=== PATIENT | female | born 1930 | race Caucasian/White ===

== ENCOUNTER 2016-02-16 07:28 | Inpatient (IN) | payer OTHER ==
[2016-02-16] MEDS ORDERED: ADENOSINE 6 MG/2 ML VIAL IVPUSH ONE (07:42)
[2016-02-16] MEDS ORDERED: dilTIAZem HCL 50 MG/10 ML - 10 ML VIAL ONE (07:46)
[2016-02-16] MEDS ORDERED: SODIUM CHLORIDE 500 ML IV STA (08:00)
[2016-02-16] MEDS ORDERED: dilTIAZem HCL 50 MG/10 ML - 10 ML VIAL IVPUSH ONE ×4 (08:00→10:10)
[2016-02-16] MEDS ORDERED: dilTIAZem HCL 30 MG TABLET (FP) PO ONE (08:01)
--- NOTE | 2016-02-16 08:13 | PDOC ---
History of Present Illness - General History Source: Patient, Family Exam Limitations: No Limitations - History of Present Illness Initial Comments: 02/16/16 08:15 The patient is an 85 year old female with significant past medical history of lung cancer 13 years ago, hypertension, hypercholesterolemia, a-fib (on Cardizem 240mg), TIA (on Coumadin) who presents to the emergency department with rapid heart rate and shortness of breath that started this morning. As per daughter, the patient was woken from sleep with sudden onset of shortness of breath. The patient denies any palpitations or chest pain. The patient states she vomited x2 yesterday. She denies any recent history of dehydration. She denies diarrhea. She denies any lightheadedness, dizziness, or syncope. The patient denies any leg swelling. She denies missing any doses of medication. She denies recent illness, fevers, or chills. Braid Maker: Dr. Christianson PMD: Dr. Lane <Anastasiia Driver - Last Filed: 02/16/16 08:15> <Ramses Zacarias - Last Filed: 02/16/16 09:57> - General Chief Complaint: Shortness of Breath Stated Complaint: SOB, VOMITING Time Seen by Provider: 02/16/16 07:40 Past History <Anastasiia Driver - Last Filed: 02/16/16 08:15> - Past Medical History Anemia: No Asthma: No Cancer: Yes (lung ca 10yrs ago,and chemo) Cardiac Disorders: Yes (A-fib) CVA: No COPD: Yes CHF: No Dementia: No Diabetes: No GI Disorders: Yes (Sigmoid perforation, peritonitis, colostomy) Disorders: No HTN: Yes Hypercholesterolemia: Yes Liver Disease: No Suicide Attempt (Hx): No Seizures: No Thyroid Disease: No - Surgical History Abdominal Surgery: Yes (colostomy) Appendectomy: Yes Cardiac Surgery: No Cholecystectomy: No Lung Surgery: Yes (right thoracotomy) Neurologic Surgery: No Orthopedic Surgery: No - Immunization History Td Vaccination: Yes TDAP Vaccination: No Immunization Up to Date: Yes - Psycho/Social/Smoking Cessation Hx Anxiety: No Suicidal Ideation: No Smoking History: Never smoked Have you smoked in the past 12 months: No Number of Cigarettes Smoked Daily: 0 If you are a former smoker, when did you quit?: 1994 Hx Alcohol Use: Yes (SOCIAL) Drug/Substance Use Hx: No Substance Use Type: None Hx Substance Use Treatment: No <Ramses Zacarias - Last Filed: 02/16/16 09:57> - Past Medical History Allergies/Adverse Reactions: Allergies Allergy/AdvReac Type Severity Reaction Status Date / Time Penicillins Allergy Verified 02/16/16 07:35 Home Medications: Ambulatory Orders Brinzolamide [Azopt] 1 drop OD DAILY 09/08/14 Warfarin Sodium [Coumadin] 2 mg PO DAILY 09/08/14 Zolpidem Tartrate [Ambien Cr] 12.5 mg PO HS 09/08/14 Diltiazem Cd [Cardizem Cd -] 240 mg PO DAILY 02/16/16 Pilocarpine 0.5% [Pilostat 0.5% -] 1 drop OU ASDIR 02/16/16 Simvastatin [Zocor] 40 mg PO HS 02/16/16 Review of Systems - Review of Systems Constitutional: No: Chills, Fever Respiratory: Yes: Shortness of Breath. No: Cough Cardiac (ROS): Yes: Palpitations. No: Chest Pain, Edema ABD/GI: Yes: Vomiting. No: Diarrhea, Nausea Neurological: No: Headache, Weakness All Other Systems: Reviewed and Negative <Ramses Zacarias - Last Filed: 02/16/16 09:57> *Physical Exam - Vital Signs Last Vital Signs Temp Pulse Resp BP Pulse Ox 205 H 20 126/74 94 L 02/16/16 07:29 02/16/16 07:29 02/16/16 07:29 02/16/16 07:29 - Physical Exam Comments: 02/16/16 08:15 GENERAL: The patient is awake, alert, and fully oriented, in no acute distress. HEAD: Normal with no signs of trauma. EYES: Pupils equal, round and reactive to light, extraocular movements intact, sclera anicteric, conjunctiva clear with no pallor. ENT: Ears normal, nares patent, oropharynx clear without exudates. Moist mucous membranes. NECK: Normal range of motion, supple without lymphadenopathy, JVD, or masses. LUNGS: Breath sounds equal, clear to auscultation bilaterally. No wheeze/ crackles. HEART: +Irregularly irregular and tachycardic, normal S1 and S2 without murmur or rub. ABDOMEN: +LLQ colostomy with stool in the bag. Soft/nontender/nondistended. BS wnl. No guarding or rebound. No palpable masses. No hepatosplenomegaly. EXTREMITIES: Normal range of motion, no edema. No clubbing or cyanosis. No cords, erythema, or tenderness. NEUROLOGICAL: Cranial nerves II through XII grossly intact. Normal speech, normal gait. PSYCH: Normal mood, normal affect. SKIN: Warm, Dry, normal turgor, no rashes or lesions noted. <Anastasiia Driver - Last Filed: 02/16/16 08:15> - Vital Signs Last Vital Signs Temp Pulse Resp BP Pulse Ox 205 H 20 126/74 94 L 02/16/16 07:29 02/16/16 07:29 02/16/16 07:29 02/16/16 07:29 <Ramses Zacarias - Last Filed: 02/16/16 09:57> Heart Score/ECG Review #1 ECG reviewed & interpreted by me at: 07:39 02/16/16 08:09 SVT versus atrial fibrillation with rapid ventricular response. Overall rate 198 , ST depressions likely rate related, #2 ECG reviewed & interpreted by me at: 08:11 Compared to previous ECG there are: Changes noted (Compared to prior EKG on 07/03, the T-wave inversions in 1 and aVL are new, the lateral ST depressions are also new) 02/16/16 08:32 Likely sinus rhythm at 104, T wave inversions in 1 and aVL, less than [address] depression in V4 through V6, no ST elevation. <Ramses Zacarias - Last Filed: 02/16/16 09:57> ED Treatment Course - LABORATORY CBC & Chemistry Diagram: 02/16/16 08:10 02/16/16 08:10 - RADIOLOGY Radiology Studies Ordered: Category Date Time Status CHEST X-RAY PORTABLE* [RAD] Stat Radiology 02/16/16 08:01 Ordered <Ramses Zacarias - Last Filed: 02/16/16 09:57> Medical Decision Making - Critical Care Time Total Critical Care Time (minutes): 45 Critical Care Statement: The care of this patient involved high complexity decision making to prevent further life threatening deterioration of the patient 's condition and/or to evalute & treat vital organ system(s) failure or risk of failure. - Medical Decision Making 02/16/16 08:10 A portion of this note was documented by scribe services under my direction. I have reviewed the details of the note, within reason, and agree with the documentation with the following case summary and management plan written by me. 85-year-old female with history of hypertension, high cholesterol, atrial fibrillation on Cardizem and Coumadin presents with shortness of breath this morning, found to be in atrial fibrillation with rapid ventricular response at triage. Called to bedside to evaluate the patient immediately upon arrival. Patient placed on monitor, overall irregular rate on monitor at 190. Patient is otherwise in no acute distress, speaking full sentences and smiling. Exam as noted Patient given 10 mg IV push of Cardizem with immediate improvement in her heart rate to 103, still irregular, remained well-appearing and now asymptomatic. Blood pressure remained stable throughout from 140/90 to 109/80. 85-year-old female with history of atrial fibrillation presents in rapid A. fib , question secondary to 2 episodes of vomiting yesterday and some dehydration, patient states she is very compliant with her medications, as no other infectious complaints. Monitor rate control on monitor Labs, EKG, chest x-ray PO diltiazem Admission telemetry Will discuss with Dr. Christianson, her inverform machine operator 02/16/16 08:32 EKG shows markedly improved rate at 104, we'll give additional 5 mg of diltiazem intravenously, follow-up labs and admit. 02/16/16 09:38 Labs notable for white count of 15.4, elevated creatinine of 2.9 (baseline around 2), troponin 0.17. BNP 17k, significantly higher than her baseline. Discussed with Dr. Lane, requests admission to hospitalist service. Dr. Christianson, the patient's inverform machine operator, consulted. 02/16/16 09:46 Accepted for inpatient telemetry by Dr. Guy. <Ramses Zacarias - Last Filed: 02/16/16 09:57> *DC/Admit/Observation/Transfer - Attestations Scribe Attestion: 02/16/16 08:16 Documentation prepared by Anastasiia Driver, acting as medical review specialist for Ramses Zacarias MD, <Anastasiia Driver - Last Filed: 02/16/16 08:15> - Discharge Dispostion Admit: Yes <Ramses Zacarias - Last Filed: 02/16/16 09:57> Diagnosis at time of Disposition: Atrial fibrillation with rapid ventricular response, Acute on chronic renal insufficiency, Elevated troponin level - Discharge Dispostion Condition at time of disposition: Fair - Referrals Referrals: Criselda Lane MD [Primary Care Provider] -
[2016-02-16] MEDS ORDERED: dilTIAZem HCL 30 MG TABLET (FP) ONE (08:25)
[2016-02-16] MEDS ORDERED: ONDANSETRON 4 MG/2 ML VIAL IVPUSH ONE (08:48)
[2016-02-16] MEDS ORDERED: ONDANSETRON 4 MG/2 ML VIAL ONE (08:53)
[2016-02-16 08:56] LABS: BASOPHIL 0.6 % (0-2.0); EOSINOPHIL 0.3 % (0-4.5); MCH 27.7 pg (25.7-33.7); MCHC 31.7 g/dl (32.0-36.0); MEAN CELL VOLUME 87.3 fl (80-96); MEAN PLT VOLUME 9.9 fl (7.5-11.1); NEUTROPHILS 71.4 % (42.8-82.8); PLATELET COUNT 230 K/MM3 (134-434); RDW 15.7 % (11.6-15.6); WHITE BLOOD COUNT 15.4 K/mm3 (4.0-10.0)
[2016-02-16 09:12] LABS: INR 1.38 (0.82-1.09); PROTHROMBIN TIME (PATIENT) 15.3 SEC (9.98-11.88)
[2016-02-16 09:25] LABS: CALCIUM 9.3 mg/dL (8.5-10.1); CREATININE 2.9 mg/dL (0.55-1.02); MAGNESIUM 2.5 mg/dL (1.8-2.4)
[2016-02-16 09:29] LABS: BILIRUBIN,TOTAL 0.8 mg/dL (0.2-1.0); TROPONIN I 0.17 ng/ml (0.00-0.05)
[2016-02-16] MEDS ORDERED: ASPIRIN 81 MG CHEWABLE TABLETS PO ONE (09:58)
--- NOTE | 2016-02-16 09:59 | CONSULT ---
Consult Consult Specialty:: Cardiology - History of Present Illness History of Present Illness: The patient is an 85 year old female with significant past medical history of lung cancer 13 years ago, hypertension, hypercholesterolemia, a-fib (on Cardizem 240mg), TIA (on Coumadin) who presents to the emergency department with rapid heart rate and shortness of breath that started this morning. As per daughter, the patient was woken from sleep with sudden onset of shortness of breath. The patient denies any palpitations or chest pain. The patient states she vomited x2 yesterday. She denies any recent history of dehydration. She denies diarrhea. She denies any lightheadedness, dizziness, or syncope. The patient denies any leg swelling. She denies missing any doses of medication. She denies recent illness, fevers, or chills. Restaurant Supervisor: Dr. Christianson PMD: Dr. 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 No: Cancer, Hematuria, Renal Calculi, UTI Musculoskeletal: Yes: Osteoarthritis - Past Surgical History Past Surgical History: Yes: Thoracotomy (right) - Alcohol/Substance Use Hx Alcohol Use: Yes (SOCIAL) History of Substance Use: reports: None - Smoking History Smoking history: Never smoked Have you smoked in the past 12 months: No Aproximately how many cigarettes per day: 0 If you are a former smoker, when did you quit?: 1994 - Social History History of Recent Travel: No Home Medications - Allergies Allergies/Adverse Reactions: Allergies Allergy/AdvReac Type Severity Reaction Status Date / Time Penicillins Allergy Verified 02/16/16 07:35 - Home Medications Home Medications: Ambulatory Orders Brinzolamide [Azopt] 1 drop OD DAILY 09/08/14 Warfarin Sodium [Coumadin] 2 mg PO DAILY 09/08/14 Zolpidem Tartrate [Ambien Cr] 12.5 mg PO HS 09/08/14 Diltiazem Cd [Cardizem Cd -] 240 mg PO DAILY 02/16/16 [place] 0.5% [Pilostat 0.5% -] 1 drop OU ASDIR 02/16/16 Simvastatin [Zocor] 40 mg PO HS 02/16/16 Review of Systems - Review of Systems Constitutional: reports: No Symptoms Eyes: reports: No Symptoms HENT: reports: No Symptoms Neck: reports: No Symptoms Cardiovascular: reports: Palpitations Respiratory: reports: SOB Gastrointestinal: reports: No Symptoms Genitourinary: reports: No Symptoms Breasts: reports: No Symptoms Reported Musculoskeletal: reports: No Symptoms Integumentary: reports: No Symptoms Neurological: reports: No Symptoms Endocrine: reports: No Symptoms Hematology/Lymphatic: reports: No Symptoms Psychiatric: reports: No Symptoms Vital Signs: Vital Signs Temperature Pulse Rate 103 H 02/16/16 08:30 Respiratory Rate 22 02/16/16 08:30 Blood Pressure 117/88 02/16/16 08:30 O2 Sat by Pulse Oximetry (%) 99 02/16/16 08:30 Constitutional: Yes: Well Nourished, No Distress, Calm Eyes: Yes: WNL, Conjunctiva Clear, EOM Intact HENT: Yes: WNL, Atraumatic, Normocephalic Neck: Yes: WNL, Supple, Trachea Midline Respiratory: Yes: WNL, Regular, CTA Bilaterally Gastrointestinal: Yes: WNL, Normal Bowel Sounds Renal/: Yes: WNL Cardiovascular: Yes: Pulse Irregular Musculoskeletal: Yes: WNL Extremities: Yes: WNL Integumentary: Yes: WNL Neurological: Yes: WNL, Alert, Oriented ...Motor Strength: WNL Psychiatric: Yes: WNL, Alert, Oriented - Other Data Labs, Other Data: CBC, BMP 02/16/16 08:10 02/16/16 08:10 INR, PTT INR 1.38 (0.82-1.09) H D 02/16/16 08:10 Troponin, BNP 02/16/16 02/16/16 08:10 08:10 Troponin I 0.17 H B-Natriuretic Peptide 86832.35 H Troponin, BNP 02/16/16 02/16/16 08:10 08:10 Troponin I 0.17 H B-Natriuretic Peptide 41923.35 H Imaging - Results Chest X-ray: Image Reviewed (no i/e) EKG: Pending Problem List - Problems (1) Acute on chronic renal insufficiency Code(s): N28.9 - DISORDER OF KIDNEY AND URETER, UNSPECIFIED N18.9 - CHRONIC KIDNEY DISEASE, UNSPECIFIED (2) Atrial fibrillation with rapid ventricular response Code(s): I48.91 - UNSPECIFIED ATRIAL FIBRILLATION (3) Closed head injury Code(s): S09.90XA - UNSPECIFIED INJURY OF HEAD, INITIAL ENCOUNTER (4) Elevated troponin Code(s): R79.89 - OTHER SPECIFIED ABNORMAL FINDINGS OF BLOOD CHEMISTRY (5) Generalized weakness Code(s): R53.1 - WEAKNESS (6) Hypertension Code(s): I10 - ESSENTIAL (PRIMARY) HYPERTENSION (7) UTI (urinary tract infection) Code(s): N39.0 - URINARY TRACT INFECTION, SITE NOT SPECIFIED (8) Acute abdomen Code(s): R10.0 - ACUTE ABDOMEN (9) Anemia Code(s): D64.9 - ANEMIA, UNSPECIFIED Qualifiers: Anemia type: due to other cause Other causes of anemia: other specified cause Qualified Code(s): D64.89 - Other specified anemias (10) Anorexia Code(s): R63.0 - ANOREXIA (11) Bleeding from wound Code(s): T14.8 - OTHER INJURY OF UNSPECIFIED BODY REGION (12) CKD (chronic kidney disease) Code(s): N18.9 - CHRONIC KIDNEY DISEASE, UNSPECIFIED Qualifiers: Qualified Code(s): N18.4 - Chronic kidney disease, stage 4 (severe) (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 - FISTULA OF INTESTINE (14) Decreased appetite Code(s): R63.0 - ANOREXIA (15) Dehydration Code(s): E86.0 - DEHYDRATION (16) Edema Code(s): R60.9 - EDEMA, UNSPECIFIED (17) Elevated lactic acid level Code(s): E87.2 - ACIDOSIS (18) Elevated lipase Code(s): R74.8 - ABNORMAL LEVELS OF OTHER SERUM ENZYMES (19) Family history of colon cancer Code(s): Z80.0 - FAMILY HISTORY OF MALIGNANT NEOPLASM OF DIGESTIVE ORGANS (20) H/O: lung cancer Code(s): Z85.118 - PERSONAL HISTORY OF MALIGNANT NEOPLASM OF BRONCHUS AND LUNG (21) Hematoma of left lower extremity Code(s): S80.12XA - CONTUSION OF LEFT LOWER LEG, INITIAL ENCOUNTER (22) Hypercalcemia Code(s): E83.52 - HYPERCALCEMIA (23) Leukocytosis Code(s): D72.829 - ELEVATED WHITE BLOOD CELL COUNT, UNSPECIFIED (24) Lower abdominal pain Code(s): R10.30 - LOWER ABDOMINAL PAIN, UNSPECIFIED (25) Nausea & vomiting Code(s): R11.2 - NAUSEA WITH VOMITING, UNSPECIFIED (26) Pancreatitis Code(s): K85.9 - ACUTE PANCREATITIS, UNSPECIFIED * DO NOT USE * (27) Perforated abdominal viscus Code(s): PDS4329 - (28) Perforated viscus Code(s): R19.8 - OTH SYMPTOMS AND SIGNS INVOLVING THE DGSTV SYS AND ABDOMEN (29) Renal failure Code(s): N19 - UNSPECIFIED KIDNEY FAILURE (30) S/P colostomy Code(s): Z93.3 - COLOSTOMY STATUS (31) Sepsis Code(s): A41.9 - SEPSIS, UNSPECIFIED ORGANISM (32) Severe sepsis without septic shock Code(s): R65.20 - SEVERE SEPSIS WITHOUT SEPTIC SHOCK (33) Shortness of breath Code(s): R06.02 - SHORTNESS OF BREATH (34) Skin abnormality Code(s): L98.9 - DISORDER OF THE SKIN AND SUBCUTANEOUS TISSUE, UNSPECIFIED (35) Tachycardia Code(s): R00.0 - TACHYCARDIA, UNSPECIFIED (36) Vomiting Code(s): R11.10 - VOMITING, UNSPECIFIED (37) Wheezing Code(s): R06.2 - WHEEZING Assessment/Plan AF RVR CHF HTN CRI leukocytosis Plan telemetry. ekg IV lasix echo restrt cardizem consider BB cont AC start unfractionated heparin until INR between 2-3
[2016-02-16] MEDS ORDERED: ASPIRIN 81 MG CHEWABLE TABLETS ONE (11:25)
--- NOTE | 2016-02-16 11:44 | HP ---
PCP: Criselda Lane CHIEF COMPLAINT: Shortness of breath HISTORY OF PRESENT ILLNESS: This is an 85-year-old woman who comes to the ER with shortness of breath that woke her from sleep around 6 am today. She denies chest pain, palpitations, dizziness, diaphoresis, leg edema, weight gain, nocturia, orthopnea, paroxysmal nocturnal dyspnea, urinary frequency. Yesterday , she had several episodes of nausea and vomiting. She denies fever, chills, abdominal pain, flank pain, dysuria, hematuria, hematemesis. She has a colostomy and there has been no change in the output. She had a HR of 205 and was treated with several doses of Cardizem IVP. PAST MEDICAL HISTORY Atrial fibrillation COPD Hypertension Hyperlipidemia Lung cancer, treated with surgery and chemotherapy Perforated sigmoid diverticulitis Cholelithiasis Stage 4 CKD Osteoarthritis Glaucoma PAST SURGICAL HISTORY [place] procedure Right thoracotomy and resection of lung cancer Appendectomy ALLERGIES 3 Allergy/AdvReac Type Severity Reaction Status Date / Time Penicillins Allergy Verified 02/16/16 07:35 MEDICATIONS 3 Medication Instructions Recorded Brinzolamide [Azopt] 1 drop OD DAILY 09/08/14 Warfarin Sodium [Coumadin] 2 mg PO DAILY 09/08/14 Zolpidem Tartrate [Ambien Cr] 12.5 mg PO HS 09/08/14 Diltiazem Cd [Cardizem Cd -] 240 mg PO DAILY 02/16/16 [place]ocarpine 0.5% [Pilostat 0.5% -] 1 drop OU ASDIR 02/16/16 Simvastatin [Zocor] 40 mg PO HS 02/16/16 Family History: Non-contributory SOCIAL HISTORY Smoking: Quit 1994 Alcohol: None Drugs: None Recent Travel: No REVIEW OF SYSTEMS CONSTITUTIONAL: Absent: fever, chills, diaphoresis, generalized weakness, malaise, loss of appetite, weight change HEENT: Absent: rhinorrhea, nasal congestion, throat pain, throat swelling, difficulty swallowing, mouth swelling, ear pain, eye pain, visual changes CARDIOVASCULAR: Absent: chest pain, syncope, palpitations, lightheadedness, peripheral edema RESPIRATORY: Present: shortness of breath. Absent: cough, orthopnea, wheezing, stridor, hemoptysis GASTROINTESTINAL: Present: nausea, vomiting. Absent: abdominal pain, abdominal distension, constipation, melena, hematochezia GENITOURINARY: Absent: dysuria, frequency, urgency, hesitancy, hematuria, flank pain MUSCULOSKELETAL: Absent: myalgia, arthralgia, joint swelling, back pain, neck pain SKIN: Absent: rash, itching, pallor HEMATOLOGIC/IMMUNOLOGIC: Absent: easy bleeding, easy bruising, lymphadenopathy, frequent infections ENDOCRINE: Absent: unexplained weight gain, unexplained weight loss, heat intolerance, cold intolerance NEUROLOGIC: Absent: headache, focal weakness, paresthesias, dizziness, unsteady gait, seizure, mental status changes, bladder incontinence PSYCHIATRIC: Absent: anxiety, depression, suicidal or homicidal ideation, hallucinations. PHYSICAL EXAMINATION Vital Signs Period Temp Pulse Resp BP Sys/Cardoza Pulse Ox Last 24 Hr 96-205 20-30 109-126/74-88 94-100 GENERAL: Awake, alert, and fully oriented, in no acute distress. HEAD: Normal with no signs of trauma. EYES: Pupils equal, round and reactive to light, extraocular movements intact, sclerae anicteric, conjunctivae clear. EARS, NOSE, THROAT: Ears normal, nares patent, oropharynx clear without exudates. Moist mucous membranes. NECK: Normal range of motion, supple without lymphadenopathy, JVD, or masses. LUNGS: Breath sounds equal, clear to auscultation bilaterally. No wheezes, and no crackles. No accessory muscle use. HEART: Irregularly irregular, tachycardic. ABDOMEN: Soft, nontender, not distended, normoactive bowel sounds, no guarding, no rebound, no masses. Colostomy present on left. No hepatomegaly or splenomegaly. MUSCULOSKELETAL: Normal range of motion at all joints. No bony deformities or tenderness. No CVA tenderness. UPPER EXTREMITIES: 2+ pulses, warm, well-perfused. No cyanosis. No clubbing. Cap refill <2 seconds. No peripheral edema. LOWER EXTREMITIES: 2+ pulses, warm, well-perfused. No calf tenderness. No peripheral edema. NEUROLOGICAL: Cranial nerves II-XII intact. Normal speech. Gait not observed. PSYCHIATRIC: Cooperative. Good eye contact. Appropriate mood and affect. SKIN: Warm, dry, normal turgor, no rashes or lesions noted. Laboratory Tests 02/16/16 02/16/16 02/16/16 08:10 08:10 08:10 WBC 15.4 H D RBC 4.96 D Hgb 13.7 D Hct 43.4 D MCV 87.3 MCHC 31.7 L RDW 15.7 H Plt Count 230 D MPV 9.9 D Neutrophils % 71.4 Lymphocytes % 23.0 Monocytes % 4.7 Eosinophils % 0.3 D Basophils % 0.6 INR 1.38 H D Sodium 141 Potassium 4.4 Chloride 108 H Carbon Dioxide 21 D Anion Gap 12 BUN 41 H D Creatinine 2.9 H D Creat Clearance w eGFR 15.42 Random Glucose 142 H D Calcium 9.3 Magnesium 2.5 H D Total Bilirubin 0.8 D AST 28 D ALT 22 D Alkaline Phosphatase 131 H D Creatine Kinase 93 Troponin I 0.17 H B-Natriuretic Peptide Total Protein 8.0 Albumin 4.0 D Lipase 02/16/16 08:10 WBC RBC Hgb Hct MCV MCHC RDW Plt Count MPV Neutrophils % Lymphocytes % Monocytes % Eosinophils % Basophils % INR Sodium Potassium Chloride Carbon Dioxide Anion Gap BUN Creatinine Creat Clearance w eGFR Random Glucose Calcium Magnesium Total Bilirubin AST ALT Alkaline Phosphatase Creatine Kinase Troponin I B-Natriuretic Peptide 19033.35 H Total Protein Albumin Lipase 447 H Chest x-ray: No acute process. EKG: Atrial flutter, ventricular rate 104, LBBB. ASSESSMENT/PLAN: This is an 85-year-old woman with a history of atrial fibrillation, COPD, HTN, hyperlipidemia, lung cancer, perforated sigmoid diverticulitis, cholelithiasis, stage 4 CKD, osteoarthritis, glaucoma who presented to the ER because of shortness of breath that awoke her from sleep this morning. She was found to have HR 205, WBC 15.4, BUN 41, creatinine 2.9, BNP 25130. She is being admitted now for treatment of an emergent condition. 1. Atrial fibrillation, permanent, with rapid ventricular response - Admit to telemetry - Continue Cardizem, Coumadin - IV heparin drip until INR therapeutic - Serial troponins - Echocardiogram - Cardiology consult 2. Acute kidney injury on stage 4 CKD secondary to dehydration from vomiting - Last available creatinine was 2.3 from 08/2014 - Cautious IV hydration - Monitor BUN, creatinine - Nephrology consult 3. Dehydration - IV fluid 4. COPD - Stable 5. Hypertension - Continue Cardizem 6. Hyperlipidemia - Continue Zocor 7. History of lung cancer Problem List - Problem (1) Hyperlipidemia Code(s): E78.5 - HYPERLIPIDEMIA, UNSPECIFIED (2) CKD (chronic kidney disease) stage 4, GFR 15-29 ml/min Code(s): N18.4 - CHRONIC KIDNEY DISEASE, STAGE 4 (SEVERE) (3) COPD (chronic obstructive pulmonary disease) Code(s): J44.9 - CHRONIC OBSTRUCTIVE PULMONARY DISEASE, UNSPECIFIED Visit type - Emergency Visit Emergency Visit: Yes ED Registration Date: 02/16/16 Care time: The patient presented to the Emergency Department on the above date and was hospitalized for further evaluation of their emergent condition. - New Patient This patient is new to me today: Yes Date on this admission: 02/16/16 - Critical Care Critical Care patient: No
[2016-02-16] MEDS ORDERED: ONDANSETRON 4 MG/2 ML VIAL IVPB PRN (12:11)
[2016-02-16] MEDS ORDERED: HEPARIN NA (PORCINE) 5,000 UNITS/ML 1ML VIAL IVPUSH PRN ×2 (12:22)
[2016-02-16] MEDS ORDERED: HEPARIN INFUSION - 500 ML IVPB SCH (12:30)
[2016-02-16] MEDS ORDERED: HEPARIN INFUSION - 500 ML IVPB ONE (13:16)
[2016-02-16 14:25] LABS: TROPONIN I 0.16 ng/ml (0.00-0.05)
[2016-02-16 15:20] VITALS: BMI 23.8
--- NOTE | 2016-02-16 16:03 | EKG ---
Test Reason : Blood Pressure : / mmHG Vent. Rate : 104 BPM Atrial Rate : 104 BPM P-R Int : 168 ms QRS Dur : 134 ms QT Int : 368 ms P-R-T Axes : 000 -02 120 degrees QTc Int : 483 ms ATRIAL FLUTTER LEFT BUNDLE BRANCH BLOCK ABNORMAL ECG WHEN COMPARED WITH ECG OF 16-FEB-2016 07:39, VENT. RATE HAS DECREASED BY 94 BPM LEFT BUNDLE BRANCH BLOCK IS NOW PRESENT CRITERIA FOR ANTERIOR INFARCT ARE NO LONGER PRESENT CRITERIA FOR ANTEROLATERAL INFARCT ARE NO LONGER PRESENT Confirmed by SAMI ALVARADO, RADHA ([id number]) on 02/16/2016 4:03:22 PM Referred By: Confirmed By:RADHA GALLARDO MD
[2016-02-16] MEDS ORDERED: INFLUENZA VACCINE 45 MCG/0.5 ML (MDV 16-17) IM ONE (16:15)
[2016-02-16] MEDS ORDERED: WARFARIN NA 2 MG TABLET (UD) PO SCH (18:00)
--- NOTE | 2016-02-16 19:40 | CONSULT ---
Consult Consult Specialty:: Nephrology Reason for Consultation:: CKD - History of Present Illness Chief Complaint: shortness of breath History of Present Illness: Pt is an 85 year old female with pmhx of CKD, lung cancer, HTN, Chol and a-fib who presents to the ER with shortness of breath and rapid heart rate. I was called to evaluate her for elevated creatinine, which is above her baseline of about 2.3. She denies palpitations or chest pain. She did have several episodes of vomiting yesterday. Pt did not have much appetite either. She denies dysuria or hematuira. Pt is accompanies by her daughter who is a nurse and who helped with the history. 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 Cardio/Vascular: Yes: AFIB, HTN, Hyperlipdemia Pulmonary: Yes: Cancer (s/p chemo and resction), COPD Hepatobiliary: Yes: Cholelithiasis Renal/: Yes: Renal Failure (CkD IV), Renal Inusuff (see HPI) Musculoskeletal: Yes: Osteoarthritis - Past Surgical History Past Surgical History: Yes: Thoracotomy (right) - Alcohol/Substance Use Hx Alcohol Use: Yes (SOCIAL) History of Substance Use: reports: None - Smoking History Smoking history: Never smoked Have you smoked in the past 12 months: No Aproximately how many cigarettes per day: 0 If you are a former smoker, when did you quit?: 1994 - Social History History of Recent Travel: No Home Medications - Allergies Allergies/Adverse Reactions: Allergies Allergy/AdvReac Type Severity Reaction Status Date / Time Penicillins Allergy Verified 02/16/16 07:35 - Home Medications Home Medications: Ambulatory Orders Brinzolamide [Azopt] 1 drop OD DAILY 09/08/14 Warfarin Sodium [Coumadin] 2 mg PO DAILY 09/08/14 Zolpidem Tartrate [Ambien Cr] 12.5 mg PO HS 09/08/14 Diltiazem Cd [Cardizem Cd -] 240 mg PO DAILY 02/16/16 Pilocarpine 0.5% [Pilostat 0.5% -] 1 drop OU ASDIR 02/16/16 Simvastatin [Zocor] 40 mg PO HS 02/16/16 Family Disease History - Family Disease History Family History: Denies Review of Systems - Review of Systems Constitutional: reports: Malaise Eyes: reports: No Symptoms HENT: reports: No Symptoms Neck: reports: No Symptoms Cardiovascular: reports: Shortness of Breath. denies: Palpitations Respiratory: reports: SOB Gastrointestinal: reports: Vomiting Genitourinary: reports: No Symptoms Musculoskeletal: reports: No Symptoms Integumentary: reports: No Symptoms Neurological: reports: No Symptoms Endocrine: reports: No Symptoms Hematology/Lymphatic: reports: No Symptoms Psychiatric: reports: No Symptoms Physical Exam Vital Signs: Vital Signs Temperature 97.8 F 02/16/16 16:44 Pulse Rate 103 H 02/16/16 16:44 Respiratory Rate 18 02/16/16 16:44 Blood Pressure 128/74 02/16/16 16:44 O2 Sat by Pulse Oximetry (%) 97 02/16/16 13:53 Constitutional: Yes: Calm, Poor Hygeine HENT: Yes: Atraumatic Cardiovascular: Yes: Tachycardia, Pulse Irregular, S1, S2 Respiratory: Yes: Diminished, On Nasal O2 Gastrointestinal: Yes: Soft Renal/: Yes: WNL Musculoskeletal: Yes: WNL Edema: No Neurological: Yes: Oriented Psychiatric: Yes: Oriented Labs: Laboratory Tests 08/28/14 08/30/14 08/31/14 05:00 10:40 06:00 WBC Hgb Plt Count Sodium Potassium Chloride Carbon Dioxide Anion Gap BUN Creatinine 2.4 H D 2.3 H 2.3 H B-Natriuretic Peptide Lipase 09/01/14 09/02/14 09/08/14 06:15 05:00 22:10 WBC Hgb Plt Count Sodium Potassium Chloride Carbon Dioxide Anion Gap BUN Creatinine 2.3 H 2.3 H 2.3 H B-Natriuretic Peptide Lipase 02/16/16 02/16/16 02/16/16 08:10 08:10 08:10 WBC 15.4 H D Hgb 13.7 D Plt Count 230 D Sodium 141 Potassium 4.4 Chloride 108 H Carbon Dioxide 21 D Anion Gap 12 BUN 41 H D Creatinine 2.9 H D B-Natriuretic Peptide 86956.35 H Lipase 447 H Imaging - Results Chest X-ray: Report Reviewed Problem List - Problems (1) Acute on chronic renal insufficiency Code(s): N28.9 - DISORDER OF KIDNEY AND URETER, UNSPECIFIED N18.9 - CHRONIC KIDNEY DISEASE, UNSPECIFIED (2) Atrial fibrillation with rapid ventricular response Code(s): I48.91 - UNSPECIFIED ATRIAL FIBRILLATION (3) Dehydration Code(s): E86.0 - DEHYDRATION (4) Elevated lipase Code(s): R74.8 - ABNORMAL LEVELS OF OTHER SERUM ENZYMES (5) Generalized weakness Code(s): R53.1 - WEAKNESS (6) Shortness of breath Code(s): R06.02 - SHORTNESS OF BREATH (7) Vomiting Code(s): R11.10 - VOMITING, UNSPECIFIED (8) COPD (chronic obstructive pulmonary disease) Code(s): J44.9 - CHRONIC OBSTRUCTIVE PULMONARY DISEASE, UNSPECIFIED (9) H/O: lung cancer Code(s): Z85.118 - PERSONAL HISTORY OF MALIGNANT NEOPLASM OF BRONCHUS AND LUNG Assessment/Plan Current Medications Generic Name Dose Route Start Last Admin Trade Name Freq PRN Reason Stop Dose Admin Atorvastatin Calcium 20 mg 02/16/16 22:00 Lipitor - PO HS NAHED Diltiazem HCl 240 mg 02/17/16 10:00 Cardizem Cd - PO DAILY NAHED Heparin Sodium (Porcine) 1,000 unit 02/16/16 12:22 Heparin - IVPUSH PRN PRN Heparin Heparin Sodium (Porcine) 5,000 unit 02/16/16 12:22 Heparin - IVPUSH PRN PRN Heparin Heparin Sodium/Dextrose 500 mls @ 20 mls/hr 02/16/16 12:30 02/16/16 13:25 Heparin Infusion - IVPB 20 mls/hr TITR NAHED Administration Protocol 1,000 UNITS/HR Non-Formulary Medication 1 drop 02/17/16 10:00 Brinzolamide [Azopt] OD DAILY [facility] Ondansetron HCl 4 mg 02/16/16 12:11 Zofran Injection IVPB Q4H PRN NAUSEA Warfarin Sodium 2 mg 02/16/16 18:00 02/16/16 17:23 Coumadin - PO 2 mg DAILY@1800 NAHED Administration Zolpidem Tartrate 5 mg 02/16/16 16:10 Ambien - PO HS PRN Impression 1. CKD with acute component 2. a-fib 3. hx TIA 4. hx lung cancer 5. HTN 6. hyperlipidemia 7. COPD Plan - agree with fluid bolus - repeat labs in am - heart rate is improved - admit to monitored unit - will check urine studies - likely dehydration from vomiting causing volume depletion which could have resulted in rapid a-fib - will follow Dr Kathleen
[2016-02-16 20:52] LABS: TROPONIN I 0.19 ng/ml (0.00-0.05)
[2016-02-16] MEDS: ATORVASTATIN CA 20 MG TABLET (FP) PO SCH (21:28)
[2016-02-16] MEDS ORDERED: ZOLPIDEM TARTRATE 12.5 MG PO SCH (22:00)
[2016-02-17 07:25] LABS: BASOPHIL 0.7 % (0-2.0); EOSINOPHIL 2.3 % (0-4.5); MCH 28.1 pg (25.7-33.7); MCHC 32.4 g/dl (32.0-36.0); MEAN CELL VOLUME 86.7 fl (80-96); MEAN PLT VOLUME 9.6 fl (7.5-11.1); NEUTROPHILS 67.1 % (42.8-82.8); PLATELET COUNT 135 K/MM3 (134-434); RDW 15.3 % (11.6-15.6); WHITE BLOOD COUNT 7.3 K/mm3 (4.0-10.0)
[2016-02-17 07:47] LABS: INR 1.85 (0.82-1.09); PROTHROMBIN TIME (PATIENT) 20.6 SEC (9.98-11.88)
[2016-02-17 07:58] LABS: CREATININE 2.4 mg/dL (0.55-1.02); MAGNESIUM 2.2 mg/dL (1.8-2.4); PHOSPHOROUS 3.7 mg/dL (2.5-4.9)
[2016-02-17] MEDS ORDERED: PATIENT'S OWN MEDICATION (NON-FORMULARY) (Brinzolamide [Azopt] 1 DROP) OD SCH (10:00)
--- NOTE | 2016-02-17 10:47 | PN ---
Progress Note, Physician Chief Complaint: Pt denies shortness of breath or palpitations. presently. 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 As per daughter, the patient was woken from sleep with sudden onset of shortness of breath. The patient denies any palpitations or chest pain. The patient states she vomited x2 yesterday. She denies any recent history of dehydration. She denies diarrhea. She denies any lightheadedness, dizziness, or syncope. The patient denies any leg swelling. She denies missing any doses of medication. She denies recent illness, fevers, or chills. Oceanography Professor: Dr. Christianson PMD: Dr. Lane - Current Medication List Current Medications: Active Medications Atorvastatin Calcium (Lipitor -) 20 mg PO HS [facility] Last Admin: 02/16/16 21:28 Dose: 20 mg Diltiazem HCl (Cardizem Cd -) 240 mg PO DAILY [facility] Last Admin: 02/17/16 09:53 Dose: 240 mg Heparin Sodium (Porcine) (Heparin -) 1,000 unit IVPUSH PRN PRN PRN Reason: Heparin Heparin Sodium (Porcine) (Heparin -) 5,000 unit IVPUSH PRN PRN PRN Reason: Heparin Heparin Sodium/Dextrose (Heparin Infusion -) 500 mls @ 20 mls/hr IVPB TITR NAHED ; 1,000 UNITS/HR PRN Reason: Protocol Last Admin: 02/16/16 13:25 Dose: 20 mls/hr Non-Formulary Medication (Brinzolamide [Azopt]) 1 drop OD DAILY [facility] Ondansetron HCl (Zofran Injection) 4 mg IVPB Q4H PRN PRN Reason: NAUSEA Warfarin Sodium (Coumadin -) 2 mg PO DAILY@1800 [facility] Last Admin: 02/16/16 17:23 Dose: 2 mg Zolpidem Tartrate (Ambien -) 5 mg PO HS PRN - Objective Vital Signs: Vital Signs Temperature 97.5 F L 02/17/16 06:00 Pulse Rate 112 H 01/05/17 06:00 Respiratory Rate 18 02/17/16 06:00 Blood Pressure 124/65 02/17/16 06:00 O2 Sat by Pulse Oximetry (%) 96 02/16/16 21:00 Constitutional: Yes: Anxious Eyes: Yes: WNL HENT: Yes: WNL Neck: Yes: WNL Cardiovascular: Yes: Regular Rate and Rhythm Respiratory: Yes: Regular Gastrointestinal: Yes: Soft ...Rectal Exam: Yes: Deferred Genitourinary: No: Anuria Musculoskeletal: Yes: Muscle Weakness Extremities: Yes: Cool Edema: No Peripheral Pulses WNL: Yes Psychiatric: Yes: Alert Labs: CBC, BMP 02/17/16 05:35 02/17/16 05:35 INR, PTT INR 1.85 (0.82-1.09) H D 02/17/16 05:35 Abnormal Lab Results 02/17/16 02/17/16 02/17/16 05:35 05:35 05:35 INR 1.85 H D PTT (Actin FS) 102.8 H D Chloride 110 H BUN 42 H Creatinine 2.4 H Random Glucose 73 L D Calcium 8.0 L HDL Cholesterol 67 H D Problem List - Problems (1) Acute on chronic renal insufficiency Code(s): N28.9 - DISORDER OF KIDNEY AND URETER, UNSPECIFIED N18.9 - CHRONIC KIDNEY DISEASE, UNSPECIFIED (2) Atrial fibrillation with rapid ventricular response Assessment/Plan: On diltiazem CD 240 mg daily. As discussed with both pt and her daughter, Mary, it has been difficult to have INR checked regularly; the level was 1.3 on admission, and pt has hx of TIA last year. It was agreed that a NOAC would be started. Because of her age and renal dysfunction, apixaban 2.5 mg bid was started. IV heparin is to be discontinued when the first dose of apixaban is given; warfarin has been discontinued. Code(s): I48.91 - UNSPECIFIED ATRIAL FIBRILLATION (3) Dehydration Assessment/Plan: reecieved fluid bolus; CR 2.8-->2.4 F/u with nephologist. Code(s): E86.0 - DEHYDRATION (4) Elevated troponin Assessment/Plan: 0.17-->0.19; normal CK.(TNI 0.08 in April,). EkG: AF initially; now NSR, with LBBB. No chest pain; +dyspnea. Pt has multiple reasons for mild elevation in TNI, eg demand ischemia, renal dysfunction, sepsis, AF with RVR. Would r/o PE, though problematic doing CTA due to renal dysfunction. Pt is now on apixaban for AF. Repeat ECHO when HR is more stable for regional wall motion, valve status. Code(s): R79.89 - OTHER SPECIFIED ABNORMAL FINDINGS OF BLOOD CHEMISTRY (5) Shortness of breath Code(s): R06.02 - SHORTNESS OF BREATH (6) COPD (chronic obstructive pulmonary disease) Code(s): J44.9 - CHRONIC OBSTRUCTIVE PULMONARY DISEASE, UNSPECIFIED (7) H/O: lung cancer Assessment/Plan: F/u Lung CA (s/p ?thoracotomy in 2004) and COPD with her real estate acquisition analyst, Dr. Bell. Code(s): Z85.118 - PERSONAL HISTORY OF MALIGNANT NEOPLASM OF BRONCHUS AND LUNG (8) Hyperlipidemia Code(s): E78.5 - HYPERLIPIDEMIA, UNSPECIFIED (9) Hypertension Code(s): I10 - ESSENTIAL (PRIMARY) HYPERTENSION (10) S/P colostomy Code(s): Z93.3 - COLOSTOMY STATUS (11) Acute on chronic diastolic CHF (congestive heart failure) Assessment/Plan: On diltiazem CD for HR and BP; received fluids because of purported dehydration and worsening renal dysfunction (Cr improved from 2.8 to near-baseline 2.4). F/u Is and Os, daily weight, BUN/Cr, electrolytes. Repeat ECHO for regional wall motion and valve status when HR is better- controlled (yesterday's study was so limited that only LVEFand atrial sizes could be commented upon). Code(s): I50.33 - ACUTE ON CHRONIC DIASTOLIC (CONGESTIVE) HEART FAILURE
[2016-02-17] MEDS: APIXABAN 2.5 MG TABLET PO SCH ×2 (12:04→22:30)
[2016-02-17 12:17] LABS: THYROID STIMULATING HORMONE 0.91 uIU/ml (0.358-3.74)
--- NOTE | 2016-02-17 14:54 | PN ---
Progress Note, Physician History of Present Illness: Pt seen and examined at bedside. She is more awake and alert than she was yesterday. She says that she feels better today. - Current Medication List Current Medications: Active Medications Apixaban (Eliquis -) 2.5 mg PO BID [facility] Last Admin: 02/17/16 12:04 Dose: 2.5 mg Atorvastatin Calcium (Lipitor -) 20 mg PO HS [facility] Last Admin: 02/16/16 21:28 Dose: 20 mg Diltiazem HCl (Cardizem Cd -) 240 mg PO DAILY [facility] Last Admin: 02/17/16 09:53 Dose: 240 mg Non-Formulary Medication (Brinzolamide [Azopt]) 1 drop OD DAILY [facility] Ondansetron HCl (Zofran Injection) 4 mg IVPB Q4H PRN PRN Reason: NAUSEA Zolpidem Tartrate (Ambien -) 5 mg PO HS PRN - Objective Vital Signs: Vital Signs Temperature 97.5 F L 02/17/16 10:00 Pulse Rate 105 H 02/17/16 10:00 Respiratory Rate 18 02/17/16 10:00 Blood Pressure 126/70 02/17/16 10:00 O2 Sat by Pulse Oximetry (%) 99 02/17/16 09:00 Constitutional: Yes: Calm Eyes: Yes: Conjunctiva Clear HENT: Yes: Atraumatic Neck: Yes: Supple Cardiovascular: Yes: S1, S2 Respiratory: Yes: CTA Bilaterally Gastrointestinal: Yes: Soft Musculoskeletal: Yes: WNL Extremities: Yes: WNL Edema: No Neurological: Yes: Oriented Psychiatric: Yes: Oriented Labs: CBC, BMP 02/17/16 05:35 02/17/16 05:35 INR, PTT INR 1.85 (0.82-1.09) H D 02/17/16 05:35 Problem List - Problems (1) Acute on chronic renal insufficiency Code(s): N28.9 - DISORDER OF KIDNEY AND URETER, UNSPECIFIED N18.9 - CHRONIC KIDNEY DISEASE, UNSPECIFIED (2) Atrial fibrillation with rapid ventricular response Code(s): I48.91 - UNSPECIFIED ATRIAL FIBRILLATION (3) Dehydration Code(s): E86.0 - DEHYDRATION (4) Elevated lipase Code(s): R74.8 - ABNORMAL LEVELS OF OTHER SERUM ENZYMES (5) Generalized weakness Code(s): R53.1 - WEAKNESS (6) Shortness of breath Code(s): R06.02 - SHORTNESS OF BREATH (7) Vomiting Code(s): R11.10 - VOMITING, UNSPECIFIED (8) COPD (chronic obstructive pulmonary disease) Code(s): J44.9 - CHRONIC OBSTRUCTIVE PULMONARY DISEASE, UNSPECIFIED (9) H/O: lung cancer Code(s): Z85.118 - PERSONAL HISTORY OF MALIGNANT NEOPLASM OF BRONCHUS AND LUNG Assessment/Plan Current Medications Generic Name Dose Route Start Last Admin Trade Name Freq PRN Reason Stop Dose Admin Apixaban 2.5 mg 02/17/16 12:00 02/17/16 12:04 Eliquis - PO 2.5 mg BID NAHED Administration Atorvastatin Calcium 20 mg 02/16/16 22:00 02/16/16 21:28 Lipitor - PO 20 mg HS NAHED Administration Diltiazem HCl 240 mg 02/17/16 10:00 02/17/16 09:53 Cardizem Cd - PO 240 mg DAILY NAHED Administration Non-Formulary Medication 1 drop 02/17/16 10:00 Brinzolamide [Azopt] OD DAILY NAHED Ondansetron HCl 4 mg 02/16/16 12:11 Zofran Injection IVPB Q4H PRN NAUSEA Zolpidem Tartrate 5 mg 02/16/16 16:10 Ambien - PO HS PRN Impression 1. CKD with acute component 2. a-fib 3. hx TIA 4. hx lung cancer 5. HTN 6. hyperlipidemia 7. COPD Plan - renal function is stabilizes - dicussed with cardio, rate is improving - pt will need outpt follow up - will re-order UA - likely dehydration from vomiting causing volume depletion which could have resulted in rapid a-fib - will follow Dr Kathleen
--- NOTE | 2016-02-17 18:08 | CONSULT ---
Consult Consult Specialty:: Pulmonary Reason for Consultation:: dyspnea - History of Present Illness Chief Complaint: weakness History of Present Illness: 85 year old woman developed vomiting the day prior to admission then that night she developed dyspnea which woke her from sleep. She was found to be in atrial fibrillation with a rapid ventricular response. She responded well to Diltiazem. Pt's past history is significant for lung carcinoma in 2003. She is s /p lung resection and RT and chemo. without evidence of recurrence. She currently denies chest pain or dyspnea. She only uses albuterol via nebulizer rarely. 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 Cardio/Vascular: Yes: AFIB, HTN, Hyperlipdemia Pulmonary: Yes: Cancer (s/p chemo and resction), COPD Hepatobiliary: Yes: Cholelithiasis Renal/: Yes: Renal Failure (CkD IV), Renal Inusuff (see HPI) Musculoskeletal: Yes: Osteoarthritis - Past Surgical History Past Surgical History: Yes: Thoracotomy (right) - Alcohol/Substance Use Hx Alcohol Use: Yes (SOCIAL) History of Substance Use: reports: None - Smoking History Smoking history: Former smoker Have you smoked in the past 12 months: No Aproximately how many cigarettes per day: 0 If you are a former smoker, when did you quit?: 1994 - Social History History of Recent Travel: No Home Medications - Allergies Allergies/Adverse Reactions: Allergies Allergy/AdvReac Type Severity Reaction Status Date / Time Penicillins Allergy Verified 02/16/16 07:35 - Home Medications Home Medications: Ambulatory Orders Brinzolamide [Azopt] 1 drop OD DAILY 09/08/14 Warfarin Sodium [Coumadin] 2 mg PO DAILY 09/08/14 Zolpidem Tartrate [Ambien Cr] 12.5 mg PO HS 09/08/14 Diltiazem Cd [Cardizem Cd -] 240 mg PO DAILY 02/16/16 Pilocarpine 0.5% [Pilostat 0.5% -] 1 drop OU BID 02/16/16 Simvastatin [Zocor] 40 mg PO HS 01/04/17 Travatan Z 1 drop OU HS 02/17/16 Travoprost [Travatan Z] 5 ml OP HS 02/17/16 Review of Systems - Review of Systems Constitutional: denies: Fever Cardiovascular: denies: Chest Pain, Edema Respiratory: denies: Hemoptysis, Wheezing Physical Exam Vital Sings: Vital Signs Temperature 98.3 F 02/17/16 14:00 Pulse Rate 117 H 02/17/16 14:00 Respiratory Rate 18 02/17/16 14:00 Blood Pressure 117/62 02/17/16 14:00 O2 Sat by Pulse Oximetry (%) 99 02/17/16 09:00 Constitutional: Yes: No Distress Eyes: No: Sclera Icterus HENT: Yes: Atraumatic, Normocephalic Neck: Yes: Supple, Trachea Midline Cardiovascular: Yes: Pulse Irregular. No: JVD Respiratory: Yes: CTA Bilaterally ...Inspection: Yes: Surgical Scar (right post chest) ...Percussion: No: Dullnes, Hyperresonance Gastrointestinal: Yes: Soft. No: Hepatomegaly, Splenomegaly, Tenderness Extremities: No: Calf Tenderness Edema: No Neurological: Yes: Alert, Oriented Labs: CBC, BMP 02/17/16 05:35 02/17/16 05:35 Imaging - Results Chest X-ray: Report Reviewed, Image Reviewed (MARIANNE) Cat Scan: Report Reviewed, Image Reviewed (09/02/14:volume loss right side with chronic changes) Problem List - Problems (1) Atrial fibrillation with rapid ventricular response Code(s): I48.91 - UNSPECIFIED ATRIAL FIBRILLATION (2) COPD (chronic obstructive pulmonary disease) Code(s): J44.9 - CHRONIC OBSTRUCTIVE PULMONARY DISEASE, UNSPECIFIED (3) H/O: lung cancer Code(s): Z85.118 - PERSONAL HISTORY OF MALIGNANT NEOPLASM OF BRONCHUS AND LUNG (4) S/P colostomy Code(s): Z93.3 - COLOSTOMY STATUS Assessment/Plan 85 year old woman with atrial fibrillation with rapid ventricular response; pt improved COPD- respiratory status stable. H/O Lung Carcinoma 2003-no evidence recurrence Suggest: Check SaO2 pre and post ambulation on room air Albuterol neb q 4H PRN Diltiazem Anticoagulation O2 to maintain SaO2>90 Thank you fro referring this patient for consultation.
[2016-02-17] MEDS: ATORVASTATIN CA 20 MG TABLET (FP) PO SCH (22:30)
[2016-02-17] MEDS: ZOLPIDEM TARTRATE 5 MG TABLET PO PRN (22:32)
[2016-02-17] MEDS ORDERED: PILOCARPINE OU SCH (22:45)
[2016-02-18 08:23] LABS: BASOPHIL 0.7 % (0-2.0); EOSINOPHIL 2.7 % (0-4.5); MCH 27.9 pg (25.7-33.7); MCHC 31.9 g/dl (32.0-36.0); MEAN CELL VOLUME 87.3 fl (80-96); MEAN PLT VOLUME 9.7 fl (7.5-11.1); NEUTROPHILS 71.1 % (42.8-82.8); PLATELET COUNT 136 K/MM3 (134-434); RDW 15.4 % (11.6-15.6)
[2016-02-18 08:45] LABS: CALCIUM 7.9 mg/dL (8.5-10.1); CREATININE 2.3 mg/dL (0.55-1.02); MAGNESIUM 2.2 mg/dL (1.8-2.4)
[2016-02-18 09:03] LABS: INR 2.2 (0.82-1.09); PROTHROMBIN TIME (PATIENT) 24.6 SEC (9.98-11.88)
[2016-02-18] MEDS: APIXABAN 2.5 MG TABLET PO SCH (09:34)
--- NOTE | 2016-02-18 10:08 | PN ---
Progress Note, Physician History of Present Illness: Pt is alert and oriented. NAD. OOB in chair. Denies dyspnea or chest pain - Current Medication List Current Medications: Active Medications Apixaban (Eliquis -) 2.5 mg PO BID [facility] Last Admin: 02/18/16 09:34 Dose: 2.5 mg Atorvastatin Calcium (Lipitor -) 20 mg PO HS [facility] Last Admin: 02/17/16 22:30 Dose: 20 mg Diltiazem HCl (Cardizem Cd -) 240 mg PO DAILY [facility] Last Admin: 02/18/16 09:34 Dose: 240 mg Non-Formulary Medication (Travatan Z) 1 drop OU HS NAHED Non-Formulary Medication (Travoprost [Travatan Z]) 5 ml OP HS NAHED Non-Formulary Medication (Pilocarpine 0.5% [Pilostat 0.5% -]) 1 drop OU ASDIR NAHED Non-Formulary Medication (Brinzolamide [Azopt]) 1 drop OD DAILY [facility]HED Ondansetron HCl (Zofran Injection) 4 mg IVPB Q4H PRN PRN Reason: NAUSEA Zolpidem Tartrate (Ambien -) 5 mg PO HS PRN Last Admin: 02/17/16 22:32 Dose: 5 mg - Objective Vital Signs: Vital Signs Temperature 97.6 F 02/18/16 05:00 Pulse Rate 86 02/18/16 05:00 Respiratory Rate 20 02/18/16 05:00 Blood Pressure 121/63 02/18/16 05:00 O2 Sat by Pulse Oximetry (%) 96 02/17/16 21:00 Constitutional: Yes: No Distress HENT: Yes: Atraumatic, Normocephalic Neck: Yes: Supple, Trachea Midline Cardiovascular: Yes: Pulse Irregular Respiratory: Yes: CTA Bilaterally Gastrointestinal: Yes: Soft. No: Tenderness Edema: No Neurological: Yes: Alert, Oriented Labs: CBC, BMP 02/18/16 06:05 02/18/16 06:05 INR, PTT INR 2.20 (0.82-1.09) H 02/18/16 06:05 SaO2 95% on room air at rest.SaO2 85% post ambulation Problem List - Problems (1) Atrial fibrillation with rapid ventricular response Code(s): I48.91 - UNSPECIFIED ATRIAL FIBRILLATION (2) COPD (chronic obstructive pulmonary disease) Code(s): J44.9 - CHRONIC OBSTRUCTIVE PULMONARY DISEASE, UNSPECIFIED (3) H/O: lung cancer Code(s): Z85.118 - PERSONAL HISTORY OF MALIGNANT NEOPLASM OF BRONCHUS AND LUNG (4) S/P colostomy Code(s): Z93.3 - COLOSTOMY STATUS Assessment/Plan 85 year old woman with atrial fibrillation with rapid ventricular response; pt is improved COPD- respiratory status stable. Patient desaturates with ambulation;suggest home O@ with exercise, sleep and PRN. H/O Lung Carcinoma 2003-no evidence recurrence Suggest: Albuterol neb q 4H PRN Diltiazem Anticoagulation O2 to maintain SaO2>90
[2016-02-18 11:05] LABS: URINE APPEARANCE SLCLOUDY; URINE BILIRUBIN NEGATIVE (NEGATIVE); URINE BLOOD NEGATIVE (NEGATIVE); URINE COLOR YELLOW; URINE GLUCOSE (UA) NEGATIVE (NEGATIVE); URINE KETONE NEGATIVE (NEGATIVE); URINE NITRITE NEGATIVE (NEGATIVE); URINE PROTEIN NEGATIVE (NEGATIVE); URINE UROBILINOGEN NEGATIVE E.U./dl (0.2-1.0)
--- NOTE | 2016-02-18 11:20 | EKG ---
Test Reason : Blood Pressure : / mmHG Vent. Rate : 198 BPM Atrial Rate : 198 BPM P-R Int : 000 ms QRS Dur : 110 ms QT Int : 252 ms P-R-T Axes : 000 -15 177 degrees QTc Int : 457 ms WIDE COMPLEX TACHYCARDIA ANTEROLATERAL INFARCT , AGE UNDETERMINED MARKED ST ABNORMALITY, POSSIBLE INFERIOR SUBENDOCARDIAL INJURY ABNORMAL ECG WHEN COMPARED WITH ECG OF 03-JUL-2014 16:13, SIGNIFICANT CHANGES HAVE OCCURRED Confirmed by ISAEL CISNEROS MD ([id number]) on 02/18/2016 11:20:10 AM Referred By: Confirmed By:ISAEL CISNEROS MD
--- NOTE | 2016-02-18 11:25 | PN ---
Progress Note, Physician History of Present Illness: The patient is an 85 year old female with significant past medical history of lung cancer 13 years ago, hypertension, hypercholesterolemia, a-fib (on Cardizem 240mg), TIA (on Coumadin) who presents to the emergency department with rapid heart rate and shortness of breath that started this morning. As per daughter, the patient was woken from sleep with sudden onset of shortness of breath. The patient denies any palpitations or chest pain. The patient states she vomited x2 yesterday. She denies any recent history of dehydration. She denies diarrhea. She denies any lightheadedness, dizziness, or syncope. The patient denies any leg swelling. She denies missing any doses of medication. She denies recent illness, fevers, or chills. [employer] Boards Solder Leveler: Dr. Christianson PMD: Dr. Lane - Current Medication List Current Medications: Active Medications Apixaban (Eliquis -) 2.5 mg PO BID [facility] Last Admin: 02/18/16 09:34 Dose: 2.5 mg Atorvastatin Calcium (Lipitor -) 20 mg PO HS [facility] Last Admin: 02/17/16 22:30 Dose: 20 mg Diltiazem HCl (Cardizem Cd -) 240 mg PO DAILY [facility] Last Admin: 02/18/16 09:34 Dose: 240 mg Non-Formulary Medication (Travatan Z) 1 drop OU HS NAHED Non-Formulary Medication (Travoprost [Travatan Z]) 5 ml OP HS NAHED Non-Formulary Medication (Pilocarpine 0.5% [Pilostat 0.5% -]) 1 drop OU ASDIR NAHED Non-Formulary Medication (Brinzolamide [Azopt]) 1 drop OD DAILY NAHED Ondansetron HCl (Zofran Injection) 4 mg IVPB Q4H PRN PRN Reason: NAUSEA Zolpidem Tartrate (Ambien -) 5 mg PO HS PRN Last Admin: 02/17/16 22:32 Dose: 5 mg - Objective Vital Signs: Vital Signs Temperature 97.6 F 02/18/16 05:00 Pulse Rate 100 H 02/18/16 10:41 Respiratory Rate 20 02/18/16 05:00 Blood Pressure 121/63 02/18/16 05:00 O2 Sat by Pulse Oximetry (%) 97 02/18/16 10:41 Eyes: Yes: WNL, Conjunctiva Clear, EOM Intact HENT: Yes: WNL, Atraumatic, Normocephalic Neck: Yes: WNL, Supple, Trachea Midline Cardiovascular: Yes: WNL, Regular Rate and Rhythm Respiratory: Yes: WNL, Regular, CTA Bilaterally Gastrointestinal: Yes: WNL, Normal Bowel Sounds Genitourinary: Yes: WNL Musculoskeletal: Yes: WNL Extremities: Yes: WNL Edema: No Integumentary: Yes: WNL Neurological: Yes: WNL, Alert, Oriented ...Motor Strength: WNL Psychiatric: Yes: WNL Labs: CBC, BMP 02/18/16 06:05 02/18/16 06:05 INR, PTT INR 2.20 (0.82-1.09) H 02/18/16 06:05 Problem List - Problems (1) Acute on chronic renal insufficiency Code(s): N28.9 - DISORDER OF KIDNEY AND URETER, UNSPECIFIED N18.9 - CHRONIC KIDNEY DISEASE, UNSPECIFIED (2) Atrial fibrillation with rapid ventricular response Code(s): I48.91 - UNSPECIFIED ATRIAL FIBRILLATION (3) Closed head injury Code(s): S09.90XA - UNSPECIFIED INJURY OF HEAD, INITIAL ENCOUNTER (4) Elevated troponin Code(s): R79.89 - OTHER SPECIFIED ABNORMAL FINDINGS OF BLOOD CHEMISTRY (5) Generalized weakness Code(s): R53.1 - WEAKNESS (6) Hypertension Code(s): I10 - ESSENTIAL (PRIMARY) HYPERTENSION (7) UTI (urinary tract infection) Code(s): N39.0 - URINARY TRACT INFECTION, SITE NOT SPECIFIED (8) Acute abdomen Code(s): R10.0 - ACUTE ABDOMEN (9) Anemia Code(s): D64.9 - ANEMIA, UNSPECIFIED Qualifiers: Anemia type: due to other cause Other causes of anemia: other specified cause Qualified Code(s): D64.89 - Other specified anemias (10) Anorexia Code(s): R63.0 - ANOREXIA (11) Bleeding from wound Code(s): T14.8 - OTHER INJURY OF UNSPECIFIED BODY REGION (12) CKD (chronic kidney disease) Code(s): N18.9 - CHRONIC KIDNEY DISEASE, UNSPECIFIED Qualifiers: Qualified Code(s): N18.4 - Chronic kidney disease, stage 4 (severe) (13) [place]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 Code(s): K63.2 - FISTULA OF INTESTINE (14) Decreased appetite Code(s): R63.0 - ANOREXIA (15) Dehydration Code(s): E86.0 - DEHYDRATION (16) Edema Code(s): R60.9 - EDEMA, UNSPECIFIED (17) Elevated lactic acid level Code(s): E87.2 - ACIDOSIS (18) Elevated lipase Code(s): R74.8 - ABNORMAL LEVELS OF OTHER SERUM ENZYMES (19) Family history of colon cancer Code(s): Z80.0 - FAMILY HISTORY OF MALIGNANT NEOPLASM OF DIGESTIVE ORGANS (20) H/O: lung cancer Code(s): Z85.118 - PERSONAL HISTORY OF MALIGNANT NEOPLASM OF BRONCHUS AND LUNG (21) Hematoma of left lower extremity Code(s): S80.12XA - CONTUSION OF LEFT LOWER LEG, INITIAL ENCOUNTER (22) Hypercalcemia Code(s): E83.52 - HYPERCALCEMIA (23) Leukocytosis Code(s): D72.829 - ELEVATED WHITE BLOOD CELL COUNT, UNSPECIFIED (24) Lower abdominal pain Code(s): R10.30 - LOWER ABDOMINAL PAIN, UNSPECIFIED (25) Nausea & vomiting Code(s): R11.2 - NAUSEA WITH VOMITING, UNSPECIFIED (26) Pancreatitis Code(s): K85.9 - ACUTE PANCREATITIS, UNSPECIFIED * DO NOT USE * (27) Perforated abdominal viscus Code(s): [id number] - (28) Perforated viscus Code(s): R19.8 - OTH SYMPTOMS AND SIGNS INVOLVING THE DGSTV SYS AND ABDOMEN (29) Renal failure Code(s): N19 - UNSPECIFIED KIDNEY FAILURE (30) S/P colostomy Code(s): Z93.3 - COLOSTOMY STATUS (31) Sepsis Code(s): A41.9 - SEPSIS, UNSPECIFIED ORGANISM (32) Severe sepsis without septic shock Code(s): R65.20 - SEVERE SEPSIS WITHOUT SEPTIC SHOCK (33) Shortness of breath Code(s): R06.02 - SHORTNESS OF BREATH (34) Skin abnormality Code(s): L98.9 - DISORDER OF THE SKIN AND SUBCUTANEOUS TISSUE, UNSPECIFIED (35) Tachycardia Code(s): R00.0 - TACHYCARDIA, UNSPECIFIED (36) Vomiting Code(s): R11.10 - VOMITING, UNSPECIFIED (37) Wheezing Code(s): R06.2 - WHEEZING Assessment/Plan Problems (1) Acute on chronic renal insufficiency Code(s): N28.9 - DISORDER OF KIDNEY AND URETER, UNSPECIFIED N18.9 - CHRONIC KIDNEY DISEASE, UNSPECIFIED (2) Atrial fibrillation with rapid ventricular response Assessment/Plan: On diltiazem CD 240 mg daily. As discussed with both pt and her daughter, Mary, it has been difficult to have INR checked regularly; the level was 1.3 on admission, and pt has hx of TIA last year. It was agreed that a NOAC would be started. Because of her age and renal dysfunction, apixaban 2.5 mg bid was started. IV heparin is to be discontinued when the first dose of apixaban is given; warfarin has been discontinued. Code(s): I48.91 - UNSPECIFIED ATRIAL FIBRILLATION (3) Dehydration Assessment/Plan: reecieved fluid bolus; CR 2.8-->2.4 F/u with nephologist. Code(s): E86.0 - DEHYDRATION (4) Elevated troponin Assessment/Plan: 0.17-->0.19; normal CK.(TNI 0.08 in April,). EkG: AF initially; now NSR, with LBBB. No chest pain; +dyspnea. Pt has multiple reasons for mild elevation in TNI, eg demand ischemia, renal dysfunction, sepsis, AF with RVR. Would r/o PE, though problematic doing CTA due to renal dysfunction. Pt is now on apixaban for AF. Repeat ECHO when HR is more stable for regional wall motion, valve status. Code(s): R79.89 - OTHER SPECIFIED ABNORMAL FINDINGS OF BLOOD CHEMISTRY (5) Shortness of breath Code(s): R06.02 - SHORTNESS OF BREATH (6) COPD (chronic obstructive pulmonary disease) Code(s): J44.9 - CHRONIC OBSTRUCTIVE PULMONARY DISEASE, UNSPECIFIED (7) H/O: lung cancer Assessment/Plan: F/u Lung CA (s/p ?thoracotomy in 2004) and COPD with her level vial setter, Dr. Bell. Code(s): Z85.118 - PERSONAL HISTORY OF MALIGNANT NEOPLASM OF BRONCHUS AND LUNG (8) Hyperlipidemia Code(s): E78.5 - HYPERLIPIDEMIA, UNSPECIFIED (9) Hypertension Code(s): I10 - ESSENTIAL (PRIMARY) HYPERTENSION (10) S/P colostomy Code(s): Z93.3 - COLOSTOMY STATUS (11) Acute on chronic diastolic CHF (congestive heart failure) Assessment/Plan: On diltiazem CD for HR and BP; received fluids because of purported dehydration and worsening renal dysfunction (Cr improved from 2.8 to near-baseline 2.4). F/u Is and Os, daily weight, BUN/Cr, electrolytes. Repeat ECHO for regional wall motion and valve status when HR is better- controlled (yesterday's study was so limited that only LVEFand atrial sizes could be commented upon). Code(s): I50.33 - ACUTE ON CHRONIC DIASTOLIC (CONGESTIVE) HEART FAILURE
[2016-02-18 11:31] LABS: URINE LEUK ESTERASE 3+ (NEGATIVE)
[2016-02-18 11:45] LABS: URINE MUCUS RARE; URINE RBC 3 /hpf (0-3); URINE WBC 20 /hpf (3-5)
--- NOTE | 2016-02-18 13:29 | PN ---
Progress Note, Physician History of Present Illness: Pt seen and examined at bedside. She feels well. She denies shortness of breath. - Current Medication List Current Medications: Active Medications Apixaban (Eliquis -) 2.5 mg PO BID [facility] Last Admin: 02/18/16 09:34 Dose: 2.5 mg Atorvastatin Calcium (Lipitor -) 20 mg PO HS [facility] Last Admin: 02/17/16 22:30 Dose: 20 mg Diltiazem HCl (Cardizem Cd -) 240 mg PO DAILY [facility] Last Admin: 02/18/16 09:34 Dose: 240 mg Non-Formulary Medication (Travatan Z) 1 drop OU HS NAHED Non-Formulary Medication (Travoprost [Travatan Z]) 5 ml OP HS NAHED Non-Formulary Medication (Pilocarpine 0.5% [Pilostat 0.5% -]) 1 drop OU ASDIR NAHED Non-Formulary Medication (Brinzolamide [Azopt]) 1 drop OD DAILY [facility] Ondansetron HCl (Zofran Injection) 4 mg IVPB Q4H PRN PRN Reason: NAUSEA Zolpidem Tartrate (Ambien -) 5 mg PO HS PRN Last Admin: 02/17/16 22:32 Dose: 5 mg - Objective Vital Signs: Vital Signs Temperature 97.8 F 02/18/16 09:00 Pulse Rate 100 H 02/18/16 10:41 Respiratory Rate 18 02/18/16 09:00 Blood Pressure 140/68 02/18/16 09:00 O2 Sat by Pulse Oximetry (%) 97 02/18/16 10:41 Constitutional: Yes: Calm Eyes: Yes: Conjunctiva Clear HENT: Yes: Atraumatic Cardiovascular: Yes: Pulse Irregular, S1, S2 Gastrointestinal: Yes: Normal Bowel Sounds, Soft Genitourinary: No: Bladder Distention, CVA Tenderness - Left, CVA Tenderness - Right Musculoskeletal: Yes: Muscle Weakness Edema: No Neurological: Yes: Oriented Psychiatric: Yes: Oriented Labs: CBC, BMP 02/18/16 06:05 02/18/16 06:05 INR, PTT INR 2.20 (0.82-1.09) H 02/18/16 06:05 Problem List - Problems (1) Acute on chronic renal insufficiency Code(s): N28.9 - DISORDER OF KIDNEY AND URETER, UNSPECIFIED N18.9 - CHRONIC KIDNEY DISEASE, UNSPECIFIED (2) Atrial fibrillation with rapid ventricular response Code(s): I48.91 - UNSPECIFIED ATRIAL FIBRILLATION (3) Dehydration Code(s): E86.0 - DEHYDRATION (4) Elevated lipase Code(s): R74.8 - ABNORMAL LEVELS OF OTHER SERUM ENZYMES (5) Generalized weakness Code(s): R53.1 - WEAKNESS (6) Shortness of breath Code(s): R06.02 - SHORTNESS OF BREATH (7) Vomiting Code(s): R11.10 - VOMITING, UNSPECIFIED (8) COPD (chronic obstructive pulmonary disease) Code(s): J44.9 - CHRONIC OBSTRUCTIVE PULMONARY DISEASE, UNSPECIFIED (9) H/O: lung cancer Code(s): Z85.118 - PERSONAL HISTORY OF MALIGNANT NEOPLASM OF BRONCHUS AND LUNG Assessment/Plan Current Medications Generic Name Dose Route Start Last Admin Trade Name Freq PRN Reason Stop Dose Admin Apixaban 2.5 mg 02/17/16 12:00 02/18/16 09:34 Eliquis - PO 2.5 mg BID NAHED Administration Atorvastatin Calcium 20 mg 02/16/16 22:00 02/17/16 22:30 Lipitor - PO 20 mg HS NAHED Administration Diltiazem HCl 240 mg 02/17/16 10:00 02/18/16 09:34 Cardizem Cd - PO 240 mg DAILY NAHED Administration Non-Formulary Medication 1 drop 02/18/16 22:00 Travatan Z OU HS NAHED Non-Formulary Medication 5 ml 02/18/16 22:00 Travoprost [Travatan Z] OP HS NAHED Non-Formulary Medication 1 drop 02/17/16 22:45 Pilocarpine 0.5% [Pilostat 0.5% -] OU ASDIR NAHED Non-Formulary Medication 1 drop 02/18/16 10:00 Brinzolamide [Azopt] OD DAILY NAHDE Ondansetron HCl 4 mg 02/16/16 12:11 Zofran Injection IVPB Q4H PRN NAUSEA Zolpidem Tartrate 5 mg 02/16/16 16:10 02/17/16 22:32 Ambien - PO 5 mg HS PRN Administration Laboratory Tests 02/18/16 09:15 Urine Protein Negative Urine Blood Negative Ur Leukocyte Esterase 3+ H Urine WBC 20 Impression 1. CKD with acute component 2. a-fib 3. hx TIA 4. hx lung cancer 5. HTN 6. hyperlipidemia 7. COPD Plan - renal function is back near baseline - cont management per cardio - will need outpt follow up, can see in office - check urine culture, pt is not symptomatic - neg blood or protein on UA - likely dehydration from vomiting causing volume depletion which could have resulted in rapid a-fib - will follow Dr Kathleen
[2016-02-18] MEDS: AZOPT OPTH OU SCH ×2 (18:26→22:10)
[2016-02-18] MEDS: TRAVATAN Z OPTH OU SCH ×2 (18:26→22:09)
[2016-02-18] MEDS ORDERED: TRAVATAN Z OU SCH (22:00)
[2016-02-18] MEDS: ATORVASTATIN CA 20 MG TABLET (FP) PO SCH (22:08)
[2016-02-18] MEDS: ZOLPIDEM TARTRATE 5 MG TABLET PO PRN (22:13)
--- NOTE | 2016-02-19 00:31 | PN ---
Progress Note (short form) - Note Progress Note: New visit for me Chart reviewed Patient in bed comfortable / on telemetry reports feeling better Vital Signs Period Temp Pulse Resp BP Sys/Cardoza Pulse Ox Last 24 Hr 97.5 F-98.4 F 86-105 18-20 113-149/41-70 95-97 neck - jvd heart irreg S1/S2 lungs grossly clear abd soft non tender ext no edema Problem List - Problems (1) Generalized weakness Code(s): R53.1 - WEAKNESS (2) Acute on chronic systolic (congestive) heart failure Code(s): I50.23 - ACUTE ON CHRONIC SYSTOLIC (CONGESTIVE) HEART FAILURE (3) Hypertension Code(s): I10 - ESSENTIAL (PRIMARY) HYPERTENSION (4) Atrial fibrillation Code(s): I48.91 - UNSPECIFIED ATRIAL FIBRILLATION (5) Acute on chronic diastolic CHF (congestive heart failure) Code(s): I50.33 - ACUTE ON CHRONIC DIASTOLIC (CONGESTIVE) HEART FAILURE (6) Acute on chronic renal insufficiency Code(s): N28.9 - DISORDER OF KIDNEY AND URETER, UNSPECIFIED N18.9 - CHRONIC KIDNEY DISEASE, UNSPECIFIED (7) Shortness of breath Code(s): R06.02 - SHORTNESS OF BREATH
--- NOTE | 2016-02-19 03:38 | HOSP ---
Subjective - Review of Symptoms Subjective: The pt is lying in bed comfortably. She denies chest pain, SOB, palpitations, LOC. Pulmonary: No: Cough Cardiovascular: No: Chest Pain, Palpitations Gastrointestinal: No: Abdominal Pain Physical Examination Vital Signs: Vital Signs Temperature 98.7 F 02/19/16 02:00 Pulse Rate 115 H 02/19/16 02:00 Respiratory Rate 18 02/19/16 02:00 Blood Pressure 91/50 02/19/16 02:00 O2 Sat by Pulse Oximetry (%) 97 02/18/16 20:22 Constitutional: Yes: Well Nourished, Calm Eyes: Yes: Conjunctiva Clear, EOM Intact HENT: Yes: Atraumatic, Normocephalic Neck: Yes: Supple, Trachea Midline Cardiovascular: Yes: Regular Rate and Rhythm Respiratory: Yes: Regular, CTA Bilaterally Gastrointestinal: Yes: Soft Labs: CBC, BMP 02/18/16 06:05 02/18/16 06:05 Hospitalist Encounter Assessment: This is an 85-year-old woman with a history of atrial fibrillation, COPD, HTN, hyperlipidemia, lung cancer, perforated sigmoid diverticulitis, cholelithiasis, stage 4 CKD, osteoarthritis, glaucoma who presented to the ER because of shortness of breath that awoke her from sleep. She is admitted to telemetry or rapid A.Fib Outcome: We were called to assess the pt. She had several episodes of asystole that started around midnight. One of them lasted for ok. 6 s. The nurse came to assess the pt when she noticed that on monitor. She states that the pt's mental status changed, she was confused and complained of being dizzy. Repeated VS were wnl. When i came to assess the pt she was lying in bed comfortably. She denied any complaints. She denies chest pain, palpitations, dizziness. We recommend to monitor the pt in telemetry and continue current medicatoins. Primary Physician Notified: Peace Salgado Visit type - Emergency Visit Emergency Visit: Yes ED Registration Date: 02/16/16 Care time: The patient presented to the Emergency Department on the above date and was hospitalized for further evaluation of their emergent condition. - New Patient This patient is new to me today: Yes Date on this admission: 02/21/16 - Critical Care Critical Care patient: No
[2016-02-19] MEDS: APIXABAN 2.5 MG TABLET PO SCH (06:47)
[2016-02-19 07:43] LABS: INR 1.59 (0.82-1.09); PROTHROMBIN TIME (PATIENT) 17.7 SEC (9.98-11.88)
[2016-02-19 08:25] LABS: CALCIUM 8.1 mg/dL (8.5-10.1); CREATININE 2.2 mg/dL (0.55-1.02)
--- NOTE | 2016-02-19 09:51 | PN ---
Progress Note, Physician History of Present Illness: The patient is an 85 year old female with significant past medical history of lung cancer 13 years ago, hypertension, hypercholesterolemia, a-fib (on Cardizem 240mg), TIA (on Coumadin) who presents to the emergency department with rapid heart rate and shortness of breath that started this morning. As per daughter, the patient was woken from sleep with sudden onset of shortness of breath. The patient denies any palpitations or chest pain. The patient states she vomited x2 yesterday. She denies any recent history of dehydration. She denies diarrhea. She denies any lightheadedness, dizziness, or syncope. The patient denies any leg swelling. She denies missing any doses of medication. She denies recent illness, fevers, or chills. Public Health Outreach Worker: Dr. Christianson PMD: Dr. Lane - Current Medication List Current Medications: Active Medications Apixaban (Eliquis -) 2.5 mg PO BID [facility] Last Admin: 02/19/16 06:47 Dose: Not Given Atorvastatin Calcium (Lipitor -) 20 mg PO [facility] Last Admin: 02/18/16 22:08 Dose: 20 mg Diltiazem HCl (Cardizem Cd -) 240 mg PO DAILY [facility] Last Admin: 02/18/16 09:34 Dose: 240 mg Travatan Z Opth Drops - Patient Own Med 0 ml OU [facility] Last Admin: 02/18/16 22:09 Dose: 1 ml Non-Formulary Medication (Pilocarpine 0.5% [Pilostat 0.5% -]) 1 drop OU ASDIR [facility] Azopt Opth Drops - (Patient Own Med) 1 drop OU BID [facility] Last Admin: 02/18/16 22:10 Dose: 1 drop Ondansetron HCl (Zofran Injection) 4 mg IVPB Q4H PRN PRN Reason: NAUSEA Zolpidem Tartrate (Ambien -) 5 mg PO PRN Last Admin: 02/18/16 22:13 Dose: 5 mg - Objective Vital Signs: Vital Signs Temperature 98.7 F 02/19/16 02:00 Pulse Rate 57 L 02/19/16 06:35 Respiratory Rate 16 02/19/16 06:35 Blood Pressure 133/55 02/19/16 06:35 O2 Sat by Pulse Oximetry (%) 97 02/18/16 20:22 Eyes: Yes: WNL, Conjunctiva Clear, EOM Intact HENT: Yes: WNL, Atraumatic, Normocephalic Neck: Yes: WNL, Supple, Trachea Midline Cardiovascular: Yes: WNL, Regular Rate and Rhythm Respiratory: Yes: WNL, Regular, CTA Bilaterally Gastrointestinal: Yes: WNL, Normal Bowel Sounds Genitourinary: Yes: WNL Musculoskeletal: Yes: WNL Extremities: Yes: WNL Edema: No Integumentary: Yes: WNL Neurological: Yes: WNL, Alert, Oriented ...Motor Strength: WNL Psychiatric: Yes: WNL Labs: CBC, BMP 02/18/16 06:05 02/19/16 05:00 INR, PTT INR 1.59 (0.82-1.09) H 02/19/16 05:00 Problem List - Problems (1) Acute on chronic renal insufficiency Code(s): N28.9 - DISORDER OF KIDNEY AND URETER, UNSPECIFIED N18.9 - CHRONIC KIDNEY DISEASE, UNSPECIFIED (2) Atrial fibrillation with rapid ventricular response Code(s): I48.91 - UNSPECIFIED ATRIAL FIBRILLATION (3) Closed head injury Code(s): S09.90XA - UNSPECIFIED INJURY OF HEAD, INITIAL ENCOUNTER (4) Elevated troponin Code(s): R79.89 - OTHER SPECIFIED ABNORMAL FINDINGS OF BLOOD CHEMISTRY (5) Generalized weakness Code(s): R53.1 - WEAKNESS (6) Hypertension Code(s): I10 - ESSENTIAL (PRIMARY) HYPERTENSION (7) UTI (urinary tract infection) Code(s): N39.0 - URINARY TRACT INFECTION, SITE NOT SPECIFIED (8) Acute abdomen Code(s): R10.0 - ACUTE ABDOMEN (9) Anemia Code(s): D64.9 - ANEMIA, UNSPECIFIED Qualifiers: Anemia type: due to other cause Other causes of anemia: other specified cause (10) Anorexia Code(s): R63.0 - ANOREXIA (11) Bleeding from wound Code(s): T14.8 - OTHER INJURY OF UNSPECIFIED BODY REGION (12) CKD (chronic kidney disease) Code(s): N18.9 - CHRONIC KIDNEY DISEASE, UNSPECIFIED (13) [place]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 Code(s): K63.2 - FISTULA OF INTESTINE (14) Decreased appetite Code(s): R63.0 - ANOREXIA (15) Dehydration Code(s): E86.0 - DEHYDRATION (16) Edema Code(s): R60.9 - EDEMA, UNSPECIFIED (17) Elevated lactic acid level Code(s): E87.2 - ACIDOSIS (18) Elevated lipase Code(s): R74.8 - ABNORMAL LEVELS OF OTHER SERUM ENZYMES (19) Family history of colon cancer Code(s): Z80.0 - FAMILY HISTORY OF MALIGNANT NEOPLASM OF DIGESTIVE ORGANS (20) H/O: lung cancer Code(s): Z85.118 - PERSONAL HISTORY OF MALIGNANT NEOPLASM OF BRONCHUS AND LUNG (21) Hematoma of left lower extremity Code(s): S80.12XA - CONTUSION OF LEFT LOWER LEG, INITIAL ENCOUNTER (22) Hypercalcemia Code(s): E83.52 - HYPERCALCEMIA (23) Leukocytosis Code(s): D72.829 - ELEVATED WHITE BLOOD CELL COUNT, UNSPECIFIED (24) Lower abdominal pain Code(s): R10.30 - LOWER ABDOMINAL PAIN, UNSPECIFIED (25) Nausea & vomiting Code(s): R11.2 - NAUSEA WITH VOMITING, UNSPECIFIED (26) Pancreatitis Code(s): K85.9 - ACUTE PANCREATITIS, UNSPECIFIED * DO NOT USE * (27) Perforated abdominal viscus Code(s): [id number] - (28) Perforated viscus Code(s): R19.8 - OTH SYMPTOMS AND SIGNS INVOLVING THE DGSTV SYS AND ABDOMEN (29) Renal failure Code(s): N19 - UNSPECIFIED KIDNEY FAILURE (30) S/P colostomy Code(s): Z93.3 - COLOSTOMY STATUS (31) Sepsis Code(s): A41.9 - SEPSIS, UNSPECIFIED ORGANISM (32) Severe sepsis without septic shock Code(s): R65.20 - SEVERE SEPSIS WITHOUT SEPTIC SHOCK (33) Shortness of breath Code(s): R06.02 - SHORTNESS OF BREATH (34) Skin abnormality Code(s): L98.9 - DISORDER OF THE SKIN AND SUBCUTANEOUS TISSUE, UNSPECIFIED (35) Tachycardia Code(s): R00.0 - TACHYCARDIA, UNSPECIFIED (36) Vomiting Code(s): R11.10 - VOMITING, UNSPECIFIED (37) Wheezing Code(s): R06.2 - WHEEZING Assessment/Plan Problems (1) Acute on chronic renal insufficiency Code(s): N28.9 - DISORDER OF KIDNEY AND URETER, UNSPECIFIED N18.9 - CHRONIC KIDNEY DISEASE, UNSPECIFIED (2) Atrial fibrillation with rapid ventricular response Assessment/Plan: af rvr svt tachy matty syndrome . episodes of asystole up to 5.5 sec last night will d/c cardizem cont telemetry d/c eliquis start IV heparin most likely will need EPS and PPM will hold Pilocarpine eye drops since they may couse bradycardia as well as tachycardia ophtalmology consult - for possible substitiution. external pacemaker on standby (3) Dehydration Assessment/Plan: reecieved fluid bolus; CR 2.8-->2.4 F/u with nephologist. Code(s): E86.0 - DEHYDRATION (4) Elevated troponin Assessment/Plan: 0.17-->0.19; normal CK.(TNI 0.08 in April,). EkG: AF initially; now NSR, with LBBB. No chest pain; +dyspnea. Pt has multiple reasons for mild elevation in TNI, eg demand ischemia, renal dysfunction, sepsis, AF with RVR. Would r/o PE, though problematic doing CTA due to renal dysfunction. Pt is now on apixaban for AF. Repeat ECHO when HR is more stable for regional wall motion, valve status. 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 Bell. Code(s): Z85.118 - PERSONAL HISTORY OF MALIGNANT NEOPLASM OF BRONCHUS AND LUNG (8) Hyperlipidemia Code(s): E78.5 - HYPERLIPIDEMIA, UNSPECIFIED (9) Hypertension Code(s): I10 - ESSENTIAL (PRIMARY) HYPERTENSION (10) S/P colostomy Code(s): Z93.3 - COLOSTOMY STATUS
--- NOTE | 2016-02-19 11:09 | PN ---
Progress Note, Physician History of Present Illness: Renal f/u Pt denies any c/o dyspnea at this time Azotemia stablized May need PPM for having pauses so being changed to IV Heparin - Current Medication List Current Medications: Active Medications Atorvastatin Calcium (Lipitor -) 20 mg PO HS [facility] [place] Last Admin: 02/18/16 22:08 Dose: 20 mg Diltiazem HCl (Cardizem Cd -) 240 mg PO DAILY [facility] [place] Last Admin: 02/18/16 09:34 Dose: 240 mg Travatan Z Opth Drops - Patient Own Med 0 ml OU HS [facility] [place] Last Admin: 02/18/16 22:09 Dose: 1 ml Non-Formulary Medication (Pilocarpine 0.5% [Pilostat 0.5% -]) 1 drop OU ASDIR NAHED Azopt Opth Drops - (Patient Own Med) 1 drop OU BID [facility] [place] Last Admin: 02/18/16 22:10 Dose: 1 drop Ondansetron HCl (Zofran Injection) 4 mg IVPB Q4H PRN PRN Reason: NAUSEA Zolpidem Tartrate (Ambien -) 5 mg PO HS PRN Last Admin: 02/18/16 22:13 Dose: 5 mg - Objective Vital Signs: Vital Signs Temperature 98.7 F 02/19/16 02:00 Pulse Rate 57 L 02/19/16 06:35 Respiratory Rate 16 02/19/16 06:35 Blood Pressure 133/55 02/19/16 06:35 O2 Sat by Pulse Oximetry (%) 97 02/18/16 20:22 Constitutional: Yes: No Distress Cardiovascular: Yes: S1, S2. No: JVD Respiratory: Yes: CTA Bilaterally, Diminished Gastrointestinal: Yes: Soft, Other (Colostomy bag present). No: Tenderness, Epigastrium Edema: No Labs: CBC, BMP 02/18/16 06:05 02/19/16 05:00 INR, PTT INR 1.59 (0.82-1.09) H 02/19/16 05:00 Laboratory Tests 08/28/14 08/30/14 05:00 10:40 Creatinine 2.4 H D 2.3 H Assessment/Plan Impression COPD CKD with acute component improved A-fib with pauses S/P TIA H/O lung cancer HTN hyperlipidemia Plan For possible PPM Heparin as per protocol Rpt labs in am Dr Culver
[2016-02-19] MEDS ORDERED: HEPARIN NA (PORCINE) 5,000 UNITS/ML 1ML VIAL IVPUSH PRN ×2 (12:38)
[2016-02-19] MEDS ORDERED: HEPARIN INFUSION - 500 ML IVPB ONE (13:14)
[2016-02-19] MEDS: HEPARIN INFUSION - 500 ML IVPB SCH (13:21)
[2016-02-19] MEDS: AZOPT OPTH OU SCH ×2 (13:22→22:22)
[2016-02-19] MEDS ORDERED: PT OWN MED DRAWER 7, Y5N ONE (22:07)
[2016-02-19] MEDS: ATORVASTATIN CA 20 MG TABLET (FP) PO SCH (22:19)
[2016-02-19] MEDS: TRAVATAN Z OPTH OU SCH (22:22)
[2016-02-20 07:04] LABS: BASOPHIL 0.8 % (0-2.0); EOSINOPHIL 2.5 % (0-4.5); MCHC 32.3 g/dl (32.0-36.0); MEAN CELL VOLUME 86.9 fl (80-96); MEAN PLT VOLUME 9.9 fl (7.5-11.1); NEUTROPHILS 65.5 % (42.8-82.8); PLATELET COUNT 148 K/MM3 (134-434); RDW 15.2 % (11.6-15.6); WHITE BLOOD COUNT 7.1 K/mm3 (4.0-10.0)
[2016-02-20 07:35] LABS: CALCIUM 8.1 mg/dL (8.5-10.1)
--- NOTE | 2016-02-20 09:35 | PN ---
Progress Note, Physician History of Present Illness: The patient is an 85 year old female with significant past medical history of lung cancer 13 years ago, hypertension, hypercholesterolemia, a-fib (on Cardizem 240mg), TIA (on Coumadin) who presents to the emergency department with rapid heart rate and shortness of breath that started this morning. As per daughter, the patient was woken from sleep with sudden onset of shortness of breath. The patient denies any palpitations or chest pain. The patient states she vomited x2 yesterday. She denies any recent history of dehydration. She denies diarrhea. She denies any lightheadedness, dizziness, or syncope. The patient denies any leg swelling. She denies missing any doses of medication. She denies recent illness, fevers, or chills. [employer] Information Clerk: Dr. Christianson PMD: Dr. Lane - Current Medication List Current Medications: Active Medications Atorvastatin Calcium (Lipitor -) 20 mg PO HS [facility] Last Admin: 02/19/16 22:19 Dose: 20 mg Heparin Sodium (Porcine) (Heparin -) 5,000 unit IVPUSH PRN PRN Heparin Sodium (Porcine) (Heparin -) 1,000 unit IVPUSH PRN PRN Last Admin: 02/19/16 18:49 Dose: 1,000 unit Heparin Sodium/Dextrose (Heparin Infusion -) 500 mls @ 16 mls/hr IVPB TITR NAHED ; 800 UNITS/HR PRN Reason: Protocol Last Titration: 02/19/16 18:49 Dose: 900 units/hr Travatan Z Opth Drops - Patient Own Med 0 ml OU HS [facility] Last Admin: 02/19/16 22:22 Dose: 1 ml Non-Formulary Medication (Pilocarpine 0.5% [Pilostat 0.5% -]) 1 drop OU ASDIR NAHED Azopt Opth Drops - (Patient Own Med) 1 drop OU BID [facility] Last Admin: 02/19/16 22:22 Dose: 1 drop Ondansetron HCl (Zofran Injection) 4 mg IVPB Q4H PRN PRN Reason: NAUSEA - Objective Vital Signs: Vital Signs Temperature 98.6 F 02/20/16 08:57 Pulse Rate 95 H 02/20/16 08:57 Respiratory Rate 18 02/20/16 08:58 Blood Pressure 126/65 02/20/16 08:57 O2 Sat by Pulse Oximetry (%) 98 02/20/16 08:58 Eyes: Yes: WNL, Conjunctiva Clear, EOM Intact HENT: Yes: WNL, Atraumatic, Normocephalic Neck: Yes: WNL, Supple, Trachea Midline Cardiovascular: Yes: WNL, Regular Rate and Rhythm Respiratory: Yes: WNL, Regular, CTA Bilaterally Gastrointestinal: Yes: WNL, Normal Bowel Sounds Genitourinary: Yes: WNL Musculoskeletal: Yes: WNL Extremities: Yes: WNL Edema: No Integumentary: Yes: WNL Neurological: Yes: WNL, Alert, Oriented ...Motor Strength: WNL Psychiatric: Yes: WNL Labs: CBC, BMP 02/20/16 05:30 02/20/16 05:30 INR, PTT INR 1.59 (0.82-1.09) H 02/19/16 05:00 Problem List - Problems (1) Acute on chronic renal insufficiency Code(s): N28.9 - DISORDER OF KIDNEY AND URETER, UNSPECIFIED N18.9 - CHRONIC KIDNEY DISEASE, UNSPECIFIED (2) Atrial fibrillation with rapid ventricular response Code(s): I48.91 - UNSPECIFIED ATRIAL FIBRILLATION (3) Closed head injury Code(s): S09.90XA - UNSPECIFIED INJURY OF HEAD, INITIAL ENCOUNTER (4) Elevated troponin Code(s): R79.89 - OTHER SPECIFIED ABNORMAL FINDINGS OF BLOOD CHEMISTRY (5) Generalized weakness Code(s): R53.1 - WEAKNESS (6) Hypertension Code(s): I10 - ESSENTIAL (PRIMARY) HYPERTENSION (7) UTI (urinary tract infection) Code(s): N39.0 - URINARY TRACT INFECTION, SITE NOT SPECIFIED (8) Acute abdomen Code(s): R10.0 - ACUTE ABDOMEN (9) Anemia Code(s): D64.9 - ANEMIA, UNSPECIFIED Qualifiers: Anemia type: due to other cause Other causes of anemia: other specified cause (10) Anorexia Code(s): R63.0 - ANOREXIA (11) Bleeding from wound Code(s): T14.8 - OTHER INJURY OF UNSPECIFIED BODY REGION (12) CKD (chronic kidney disease) Code(s): N18.9 - CHRONIC KIDNEY DISEASE, UNSPECIFIED (13) [place]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 Code(s): K63.2 - FISTULA OF INTESTINE (14) Decreased appetite Code(s): R63.0 - ANOREXIA (15) Dehydration Code(s): E86.0 - DEHYDRATION (16) Edema Code(s): R60.9 - EDEMA, UNSPECIFIED (17) Elevated lactic acid level Code(s): E87.2 - ACIDOSIS (18) Elevated lipase Code(s): R74.8 - ABNORMAL LEVELS OF OTHER SERUM ENZYMES (19) Family history of colon cancer Code(s): Z80.0 - FAMILY HISTORY OF MALIGNANT NEOPLASM OF DIGESTIVE ORGANS (20) H/O: lung cancer Code(s): Z85.118 - PERSONAL HISTORY OF MALIGNANT NEOPLASM OF BRONCHUS AND LUNG (21) Hematoma of left lower extremity Code(s): S80.12XA - CONTUSION OF LEFT LOWER LEG, INITIAL ENCOUNTER (22) Hypercalcemia Code(s): E83.52 - HYPERCALCEMIA (23) Leukocytosis Code(s): D72.829 - ELEVATED WHITE BLOOD CELL COUNT, UNSPECIFIED (24) Lower abdominal pain Code(s): R10.30 - LOWER ABDOMINAL PAIN, UNSPECIFIED (25) Nausea & vomiting Code(s): R11.2 - NAUSEA WITH VOMITING, UNSPECIFIED (26) Pancreatitis Code(s): K85.9 - ACUTE PANCREATITIS, UNSPECIFIED * DO NOT USE * (27) Perforated abdominal viscus Code(s): BDX9818 - (28) Perforated viscus Code(s): R19.8 - OTH SYMPTOMS AND SIGNS INVOLVING THE DGSTV SYS AND ABDOMEN (29) Renal failure Code(s): N19 - UNSPECIFIED KIDNEY FAILURE (30) S/P colostomy Code(s): Z93.3 - COLOSTOMY STATUS (31) Sepsis Code(s): A41.9 - SEPSIS, UNSPECIFIED ORGANISM (32) Severe sepsis without septic shock Code(s): R65.20 - SEVERE SEPSIS WITHOUT SEPTIC SHOCK (33) Shortness of breath Code(s): R06.02 - SHORTNESS OF BREATH (34) Skin abnormality Code(s): L98.9 - DISORDER OF THE SKIN AND SUBCUTANEOUS TISSUE, UNSPECIFIED (35) Tachycardia Code(s): R00.0 - TACHYCARDIA, UNSPECIFIED (36) Vomiting Code(s): R11.10 - VOMITING, UNSPECIFIED (37) Wheezing Code(s): R06.2 - WHEEZING Assessment/Plan Problems (1) Acute on chronic renal insufficiency Code(s): N28.9 - DISORDER OF KIDNEY AND URETER, UNSPECIFIED N18.9 - CHRONIC KIDNEY DISEASE, UNSPECIFIED (2) Atrial fibrillation with rapid ventricular response Assessment/Plan: af rvr svt tachy matty syndrome . episodes of asystole up to 5.5 sec last night resolved off cardizem and pilocarpine ophtalmologyinput appreciated cont telemetry d/c eliquis start IV heparin will discusse and decide in am depending on primary washery boss/family input and coursse over the next 24 hrs - need EPS and PPM external pacemaker on standby (3) Dehydration Assessment/Plan: reecieved fluid bolus; CR 2.8-->2.4 F/u with nephologist. Code(s): E86.0 - DEHYDRATION (4) Elevated troponin Assessment/Plan: 0.17-->0.19; normal CK.(TNI 0.08 in April,). EkG: AF initially; now NSR, with LBBB. No chest pain; +dyspnea. Pt has multiple reasons for mild elevation in TNI, eg demand ischemia, renal dysfunction, sepsis, AF with RVR. Would r/o PE, though problematic doing CTA due to renal dysfunction. Pt is now on apixaban for AF. Repeat ECHO when HR is more stable for regional wall motion, valve status. Code(s): R79.89 - OTHER SPECIFIED ABNORMAL FINDINGS OF BLOOD CHEMISTRY (5) Shortness of breath Code(s): R06.02 - SHORTNESS OF BREATH (6) COPD (chronic obstructive pulmonary disease) Code(s): J44.9 - CHRONIC OBSTRUCTIVE PULMONARY DISEASE, UNSPECIFIED (7) H/O: lung cancer Assessment/Plan: F/u Lung CA (s/p ?thoracotomy in 2004) and COPD with her grease rack worker, Dr. Bell. Code(s): Z85.118 - PERSONAL HISTORY OF MALIGNANT NEOPLASM OF BRONCHUS AND LUNG (8) Hyperlipidemia Code(s): E78.5 - HYPERLIPIDEMIA, UNSPECIFIED (9) Hypertension Code(s): I10 - ESSENTIAL (PRIMARY) HYPERTENSION (10) S/P colostomy Code(s): Z93.3 - COLOSTOMY STATUS
[2016-02-20] MEDS: AZOPT OPTH OU SCH ×2 (10:36→23:02)
--- NOTE | 2016-02-20 11:21 | EKG ---
Test Reason : Blood Pressure : / mmHG Vent. Rate : 090 BPM Atrial Rate : 090 BPM P-R Int : 158 ms QRS Dur : 122 ms QT Int : 408 ms P-R-T Axes : 051 028 072 degrees QTc Int : 499 ms SINUS RHYTHM WITH FUSION COMPLEXES LEFT BUNDLE BRANCH BLOCK ABNORMAL ECG WHEN COMPARED WITH ECG OF 19-FEB-2016 02:40, FUSION COMPLEXES ARE NOW PRESENT LEFT BUNDLE BRANCH BLOCK IS NOW PRESENT CRITERIA FOR ANTERIOR INFARCT ARE NO LONGER PRESENT Confirmed by TEE BRADSHAW MD ([id number]) on 02/20/2016 11:21:36 AM Referred By: Confirmed By:TEE BRADSHAW MD
--- NOTE | 2016-02-20 12:42 | PN ---
Progress Note, Physician History of Present Illness: Renal f/u Pt denies remains without any c/o dyspnea , CP or palpitations at this time Azotemia improved - Current Medication List Current Medications: Active Medications Atorvastatin Calcium (Lipitor -) 20 mg PO HS [facility] Last Admin: 02/19/16 22:19 Dose: 20 mg Heparin Sodium (Porcine) (Heparin -) 5,000 unit IVPUSH PRN PRN Heparin Sodium (Porcine) (Heparin -) 1,000 unit IVPUSH PRN PRN Last Admin: 02/19/16 18:49 Dose: 1,000 unit Heparin Sodium/Dextrose (Heparin Infusion -) 500 mls @ 16 mls/hr IVPB TITR NAHED ; 800 UNITS/HR PRN Reason: Protocol Last Titration: 02/19/16 18:49 Dose: 900 units/hr Travatan Z Opth Drops - Patient Own Med 0 ml OU HS [facility] Last Admin: 02/19/16 22:22 Dose: 1 ml Non-Formulary Medication (Pilocarpine 0.5% [Pilostat 0.5% -]) 1 drop OU ASDIR NAHED Azopt Opth Drops - (Patient Own Med) 1 drop OU BID [facility] Last Admin: 02/20/16 10:36 Dose: 1 drop Ondansetron HCl (Zofran Injection) 4 mg IVPB Q4H PRN PRN Reason: NAUSEA - Objective Vital Signs: Vital Signs Temperature 98.6 F 02/20/16 08:57 Pulse Rate 95 H 02/20/16 08:57 Respiratory Rate 18 02/20/16 08:58 Blood Pressure 126/65 02/20/16 08:57 O2 Sat by Pulse Oximetry (%) 98 02/20/16 08:58 Constitutional: Yes: No Distress Cardiovascular: Yes: S1, S2. No: JVD Respiratory: Yes: CTA Bilaterally Gastrointestinal: Yes: Soft. No: Tenderness, Rebound Edema: No Labs: CBC, BMP 02/20/16 05:30 02/20/16 05:30 INR, PTT INR 1.59 (0.82-1.09) H 02/19/16 05:00 Assessment/Plan Impression COPD CKD with acute component improved A-fib with pauses S/P TIA H/O lung cancer HTN hyperlipidemia Plan Continue with present management For PPM External pacer in place Heparin as per protocol Rpt labs in am Dr Culver
[2016-02-20] MEDS: HEPARIN INFUSION - 500 ML IVPB SCH (12:45)
--- NOTE | 2016-02-20 15:22 | PN ---
Progress Note, Physician History of Present Illness: Pt is alert and oriented. NAD. OOB in chair. Denies dyspnea or chest pain - Current Medication List Current Medications: Active Medications Atorvastatin Calcium (Lipitor -) 20 mg PO HS [facility] Last Admin: 02/19/16 22:19 Dose: 20 mg Heparin Sodium (Porcine) (Heparin -) 5,000 unit IVPUSH PRN PRN Heparin Sodium (Porcine) (Heparin -) 1,000 unit IVPUSH PRN PRN Last Admin: 02/19/16 18:49 Dose: 1,000 unit Heparin Sodium/Dextrose (Heparin Infusion -) 500 mls @ 16 mls/hr IVPB TITR NAH[facility] ; 800 UNITS/HR PRN Reason: Protocol Last Admin: 02/20/16 12:45 Dose: 18 mls/hr Travatan Z Opth Drops - Patient Own Med 0 ml OU HS [facility] Last Admin: 02/19/16 22:22 Dose: 1 ml Non-Formulary Medication (Pilocarpine 0.5% [Pilostat 0.5% -]) 1 drop OU ASDIR NAHED Azopt Opth Drops - (Patient Own Med) 1 drop OU BID [facility] Last Admin: 02/20/16 10:36 Dose: 1 drop Ondansetron HCl (Zofran Injection) 4 mg IVPB Q4H PRN PRN Reason: NAUSEA - Objective Vital Signs: Vital Signs Temperature 97.6 F 02/20/16 14:00 Pulse Rate 103 H 02/20/16 14:00 Respiratory Rate 20 02/20/16 14:00 Blood Pressure 136/70 02/20/16 14:00 O2 Sat by Pulse Oximetry (%) 98 02/20/16 08:58 Constitutional: Yes: No Distress Eyes: No: Sclera Icterus HENT: Yes: Atraumatic, Normocephalic Neck: Yes: Supple, Trachea Midline Cardiovascular: Yes: Pulse Irregular. No: JVD Respiratory: Yes: CTA Bilaterally Gastrointestinal: Yes: Soft. No: Tenderness Extremities: No: Calf Tenderness Edema: No Neurological: Yes: Alert, Oriented Labs: CBC, BMP 02/20/16 05:30 02/20/16 05:30 INR, PTT INR 1.59 (0.82-1.09) H 02/19/16 05:00 SaO2 94 on room air by my measurement with patient seated up in bed Problem List - Problems (1) Atrial fibrillation with rapid ventricular response Code(s): I48.91 - UNSPECIFIED ATRIAL FIBRILLATION (2) COPD (chronic obstructive pulmonary disease) Code(s): J44.9 - CHRONIC OBSTRUCTIVE PULMONARY DISEASE, UNSPECIFIED (3) H/O: lung cancer Code(s): Z85.118 - PERSONAL HISTORY OF MALIGNANT NEOPLASM OF BRONCHUS AND LUNG (4) S/P colostomy Code(s): Z93.3 - COLOSTOMY STATUS Assessment/Plan 85 year old woman with atrial fibrillation with rapid ventricular response; pt is improved but has had episodes of asystole. COPD- respiratory status stable. Patient desaturates with ambulation:suggest home O2 with exercise and PRN (when SaO2 less than 90). Need to r/o significant CO2 retention and apneic epsodes during sleep as possible cause for episodes of asystole during sleep H/O Lung Carcinoma 2003-no evidence recurrence Suggest: Albuterol neb q 4H PRN Diltiazem Anticoagulation ABG on Room Air Polysomnography as outpt Use O2 with exercise and only PRN SaO2 <90
--- NOTE | 2016-02-20 15:50 | CONSULT ---
Consult - text type - Consultation Consultation Note: Opthalmology consult: HPI: Patient is an 85 year-old female with PMH significant for Lung Ca, COPD and afib and glaucoma, admitted with SOB and noted to have asystole on telemetry. Pilocarpine eyedrops were stopped 24 hours ago. Here for IOP check. Patient denies blurry vision or pain in eyes. No further episodes of asystole noted. PMH: lung Ca, COPD, abib, HTN, hypercholesterolemia, diverticulitis, cholelithiasis, stage 4 CKD, OA ALL: PCN Meds, heparin, atorvastin, ondasterone gtts: travatan (qhs/qhs), Azopt (2/2) Poch: s/p ce/pciol OU, POAG . Dr. Liza Segal Foch: none social: Exam: [facility] near card without glasses 20/200 od, 20/400 os. TA 11 ou, rotations full, VFc full ou PLE: lll blepharitis ou, sc white ou, k: clear ou, AC formed ou I: wnl ou L: pciol ou DFE: C:d ? 0.4 m mottled ou, v wn; p: wnl Impression: Glaucoma, indeterminate stage, but does not appear to be advanced. Pilocarpine can cause bradycardia or tachycardia although systemic absorption is low especially if pressure is placed over canaliculi for one minute after administration. However, agree with discontinuation of this medication as IOP is controlled on travatan qhs and azopt bid. Would not add eye drops while inpatientl. Patient is to schedule appointment with Dr. Segal to consider SLT or DEMURRAGE MAN laser if intraocular pressure rises. Anju Rob MD
[2016-02-20] MEDS: NYSTATIN POWDER 100,000 UNITS/GM - 15 GM TOPICAL POWDER TP SCH (22:45)
[2016-02-20] MEDS: ATORVASTATIN CA 20 MG TABLET (FP) PO SCH (22:46)
[2016-02-20] MEDS: TRAVATAN Z OPTH OU SCH (23:02)
[2016-02-21 07:27] LABS: BASOPHIL 0.8 % (0-2.0); MCH 28.3 pg (25.7-33.7); MCHC 32.4 g/dl (32.0-36.0); MEAN CELL VOLUME 87.3 fl (80-96); MEAN PLT VOLUME 9.9 fl (7.5-11.1); NEUTROPHILS 67.2 % (42.8-82.8); PLATELET COUNT 157 K/MM3 (134-434); RDW 15.2 % (11.6-15.6); WHITE BLOOD COUNT 7.2 K/mm3 (4.0-10.0)
[2016-02-21 07:48] LABS: CALCIUM 8.7 mg/dL (8.5-10.1); CREATININE 1.9 mg/dL (0.55-1.02)
[2016-02-21] MEDS: HEPARIN INFUSION - 500 ML IVPB SCH (07:56)
[2016-02-21] MEDS: NYSTATIN POWDER 100,000 UNITS/GM - 15 GM TOPICAL POWDER TP SCH (09:33)
[2016-02-21] MEDS: AZOPT OPTH OU SCH (09:33)
--- NOTE | 2016-02-21 11:25 | PN ---
Progress Note (short form) - Note Progress Note: case discussed with cardio in view of significant pause / tachy-matty arrhythmia will arrange for EPS and PPM Patient to be transfered [facility] today Patient aware and agrees to transfer Vital Signs Period Temp Pulse Resp BP Sys/Cardoza Pulse Ox Last 24 Hr 97.5 F-98.8 F 95-104 18-20 113-142/64-73 93 neck supple heart reg lungs clear bilat abd soft non tender ext nop edema Current Medications Atorvastatin Calcium (Lipitor -) 20 mg PO HS [facility] Last Admin: 02/20/16 22:46 Dose: 20 mg Heparin Sodium (Porcine) (Heparin -) 5,000 unit IVPUSH PRN PRN Heparin Sodium (Porcine) (Heparin -) 1,000 unit IVPUSH PRN PRN Last Admin: 02/19/16 18:49 Dose: 1,000 unit Heparin Sodium/Dextrose (Heparin Infusion -) 500 mls @ 16 mls/hr IVPB TITR NAHED ; 800 UNITS/HR PRN Reason: Protocol Last Admin: 02/21/16 07:56 Dose: 17 mls/hr Travatan Z Opth Drops - Patient Own Med 0 ml OU HS [facility] Last Admin: 02/20/16 23:02 Dose: 1 ml Non-Formulary Medication (Pilocarpine 0.5% [Pilostat 0.5% -]) 1 drop OU ASDIR NAHED Azopt Opth Drops - (Patient Own Med) 1 drop OU BID [facility] Last Admin: 02/21/16 09:33 Dose: 1 drop Nystatin (Nystop Powder -) 1 applic TP BID [facility] Last Admin: 02/21/16 09:33 Dose: 1 applic Ondansetron HCl (Zofran Injection) 4 mg IVPB Q4H PRN PRN Reason: NAUSEA telemetry -5.5 sec pause 48hrs ago arrangement for transfer in progress Problem List - Problems (1) Sinus pause Code(s): I45.5 - OTHER SPECIFIED HEART BLOCK (2) Acute on chronic diastolic CHF (congestive heart failure) Code(s): I50.33 - ACUTE ON CHRONIC DIASTOLIC (CONGESTIVE) HEART FAILURE (3) Acute on chronic renal insufficiency Code(s): N28.9 - DISORDER OF KIDNEY AND URETER, UNSPECIFIED N18.9 - CHRONIC KIDNEY DISEASE, UNSPECIFIED (4) Atrial fibrillation with rapid ventricular response Code(s): I48.91 - UNSPECIFIED ATRIAL FIBRILLATION (5) Generalized weakness Code(s): R53.1 - WEAKNESS (6) Shortness of breath Code(s): R06.02 - SHORTNESS OF BREATH (7) CKD (chronic kidney disease) stage 4, GFR 15-29 ml/min Code(s): N18.4 - CHRONIC KIDNEY DISEASE, STAGE 4 (SEVERE) (8) COPD (chronic obstructive pulmonary disease) Code(s): J44.9 - CHRONIC OBSTRUCTIVE PULMONARY DISEASE, UNSPECIFIED (9) H/O: lung cancer Code(s): Z85.118 - PERSONAL HISTORY OF MALIGNANT NEOPLASM OF BRONCHUS AND LUNG (10) Hypertension Code(s): I10 - ESSENTIAL (PRIMARY) HYPERTENSION
--- NOTE | 2016-02-21 11:35 | PN ---
Progress Note, Physician History of Present Illness: The patient is an 85 year old female with significant past medical history of lung cancer 13 years ago, hypertension, hypercholesterolemia, a-fib (on Cardizem 240mg), TIA (on Coumadin) who presents to the emergency department with rapid heart rate and shortness of breath that started this morning. As per daughter, the patient was woken from sleep with sudden onset of shortness of breath. The patient denies any palpitations or chest pain. The patient states she vomited x2 yesterday. She denies any recent history of dehydration. She denies diarrhea. She denies any lightheadedness, dizziness, or syncope. The patient denies any leg swelling. She denies missing any doses of medication. She denies recent illness, fevers, or chills. Master Mechanic: Dr. Christianson PMD: Dr. Lane - Current Medication List Current Medications: Active Medications Atorvastatin Calcium (Lipitor -) 20 mg PO HS NAHED Last Admin: 02/20/16 22:46 Dose: 20 mg Heparin Sodium (Porcine) (Heparin -) 5,000 unit IVPUSH PRN PRN Heparin Sodium (Porcine) (Heparin -) 1,000 unit IVPUSH PRN PRN Last Admin: 02/19/16 18:49 Dose: 1,000 unit Heparin Sodium/Dextrose (Heparin Infusion -) 500 mls @ 16 mls/hr IVPB TITR NAHED ; 800 UNITS/HR PRN Reason: Protocol Last Admin: 02/21/16 07:56 Dose: 17 mls/hr Travatan Z Opth Drops - Patient Own Med 0 ml OU HS NAHED Last Admin: 02/20/16 23:02 Dose: 1 ml Non-Formulary Medication (Pilocarpine 0.5% [Pilostat 0.5% -]) 1 drop OU ASDIR NAHED Azopt Opth Drops - (Patient Own Med) 1 drop OU BID NAHED Last Admin: 02/21/16 09:33 Dose: 1 drop Nystatin (Nystop Powder -) 1 applic TP BID NAHED Last Admin: 02/21/16 09:33 Dose: 1 applic Ondansetron HCl (Zofran Injection) 4 mg IVPB Q4H PRN PRN Reason: NAUSEA - Objective Vital Signs: Vital Signs Temperature 98.0 F 02/21/16 05:00 Pulse Rate 96 H 02/21/16 05:00 Respiratory Rate 20 02/21/16 05:00 Blood Pressure 142/73 02/21/16 05:00 O2 Sat by Pulse Oximetry (%) 93 L 02/20/16 21:00 Eyes: Yes: WNL, Conjunctiva Clear, EOM Intact HENT: Yes: WNL, Atraumatic, Normocephalic Neck: Yes: WNL, Supple, Trachea Midline Cardiovascular: Yes: WNL, Regular Rate and Rhythm Respiratory: Yes: WNL, Regular, CTA Bilaterally Gastrointestinal: Yes: WNL, Normal Bowel Sounds Genitourinary: Yes: WNL Musculoskeletal: Yes: WNL Extremities: Yes: WNL Edema: No Integumentary: Yes: WNL Neurological: Yes: WNL, Alert, Oriented ...Motor Strength: WNL Psychiatric: Yes: WNL Labs: CBC, BMP 02/21/16 05:35 02/21/16 05:35 INR, PTT INR 1.59 (0.82-1.09) H 02/19/16 05:00 Problem List - Problems (1) Acute on chronic renal insufficiency Code(s): N28.9 - DISORDER OF KIDNEY AND URETER, UNSPECIFIED N18.9 - CHRONIC KIDNEY DISEASE, UNSPECIFIED (2) Atrial fibrillation with rapid ventricular response Code(s): I48.91 - UNSPECIFIED ATRIAL FIBRILLATION (3) Closed head injury Code(s): S09.90XA - UNSPECIFIED INJURY OF HEAD, INITIAL ENCOUNTER (4) Elevated troponin Code(s): R79.89 - OTHER SPECIFIED ABNORMAL FINDINGS OF BLOOD CHEMISTRY (5) Generalized weakness Code(s): R53.1 - WEAKNESS (6) Hypertension Code(s): I10 - ESSENTIAL (PRIMARY) HYPERTENSION (7) UTI (urinary tract infection) Code(s): N39.0 - URINARY TRACT INFECTION, SITE NOT SPECIFIED (8) Acute abdomen Code(s): R10.0 - ACUTE ABDOMEN (9) Anemia Code(s): D64.9 - ANEMIA, UNSPECIFIED Qualifiers: Anemia type: due to other cause Other causes of anemia: other specified cause (10) Anorexia Code(s): R63.0 - ANOREXIA (11) Bleeding from wound Code(s): T14.8 - OTHER INJURY OF UNSPECIFIED BODY REGION (12) CKD (chronic kidney disease) Code(s): N18.9 - CHRONIC KIDNEY DISEASE, UNSPECIFIED (13) [place]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 Code(s): K63.2 - FISTULA OF INTESTINE (14) Decreased appetite Code(s): R63.0 - ANOREXIA (15) Dehydration Code(s): E86.0 - DEHYDRATION (16) Edema Code(s): R60.9 - EDEMA, UNSPECIFIED (17) Elevated lactic acid level Code(s): E87.2 - ACIDOSIS (18) Elevated lipase Code(s): R74.8 - ABNORMAL LEVELS OF OTHER SERUM ENZYMES (19) Family history of colon cancer Code(s): Z80.0 - FAMILY HISTORY OF MALIGNANT NEOPLASM OF DIGESTIVE ORGANS (20) H/O: lung cancer Code(s): Z85.118 - PERSONAL HISTORY OF MALIGNANT NEOPLASM OF BRONCHUS AND LUNG (21) Hematoma of left lower extremity Code(s): S80.12XA - CONTUSION OF LEFT LOWER LEG, INITIAL ENCOUNTER (22) Hypercalcemia Code(s): E83.52 - HYPERCALCEMIA (23) Leukocytosis Code(s): D72.829 - ELEVATED WHITE BLOOD CELL COUNT, UNSPECIFIED (24) Lower abdominal pain Code(s): R10.30 - LOWER ABDOMINAL PAIN, UNSPECIFIED (25) Nausea & vomiting Code(s): R11.2 - NAUSEA WITH VOMITING, UNSPECIFIED (26) Pancreatitis Code(s): K85.9 - ACUTE PANCREATITIS, UNSPECIFIED * DO NOT USE * (27) Perforated abdominal viscus Code(s): [id number] - (28) Perforated viscus Code(s): R19.8 - OTH SYMPTOMS AND SIGNS INVOLVING THE DGSTV SYS AND ABDOMEN (29) Renal failure Code(s): N19 - UNSPECIFIED KIDNEY FAILURE (30) S/P colostomy Code(s): Z93.3 - COLOSTOMY STATUS (31) Sepsis Code(s): A41.9 - SEPSIS, UNSPECIFIED ORGANISM (32) Severe sepsis without septic shock Code(s): R65.20 - SEVERE SEPSIS WITHOUT SEPTIC SHOCK (33) Shortness of breath Code(s): R06.02 - SHORTNESS OF BREATH (34) Skin abnormality Code(s): L98.9 - DISORDER OF THE SKIN AND SUBCUTANEOUS TISSUE, UNSPECIFIED (35) Tachycardia Code(s): R00.0 - TACHYCARDIA, UNSPECIFIED (36) Vomiting Code(s): R11.10 - VOMITING, UNSPECIFIED (37) Wheezing Code(s): R06.2 - WHEEZING Assessment/Plan Problems (1) Acute on chronic renal insufficiency Code(s): N28.9 - DISORDER OF KIDNEY AND URETER, UNSPECIFIED N18.9 - CHRONIC KIDNEY DISEASE, UNSPECIFIED (2) Atrial fibrillation with rapid ventricular response Assessment/Plan: af rvr svt tachy matty syndrome . episodes of asystole up to 5.5 sec last night resolved off cardizem and pilocarpine ophtalmologyinput appreciated cont telemetry d/c eliquis cont IV heparin will transfer to [facility] for EPS and PPM external pacemaker on standby (3) Dehydration Assessment/Plan: reecieved fluid bolus; CR 2.8-->2.4 F/u with nephologist. Code(s): E86.0 - DEHYDRATION (4) Elevated troponin Assessment/Plan: 0.17-->0.19; normal CK.(TNI 0.08 in April,). EkG: AF initially; now NSR, with LBBB. No chest pain; +dyspnea. MIBI ST at [facility] after PPM Code(s): R79.89 - OTHER SPECIFIED ABNORMAL FINDINGS OF BLOOD CHEMISTRY (5) Shortness of breath Code(s): R06.02 - SHORTNESS OF BREATH (6) COPD (chronic obstructive pulmonary disease) Code(s): J44.9 - CHRONIC OBSTRUCTIVE PULMONARY DISEASE, UNSPECIFIED (7) H/O: lung cancer Assessment/Plan: F/u Lung CA (s/p ?thoracotomy in 2004) and COPD with her telehealth nurse educator, Dr. Bell. Code(s): Z85.118 - PERSONAL HISTORY OF MALIGNANT NEOPLASM OF BRONCHUS AND LUNG (8) Hyperlipidemia Code(s): E78.5 - HYPERLIPIDEMIA, UNSPECIFIED (9) Hypertension Code(s): I10 - ESSENTIAL (PRIMARY) HYPERTENSION (10) S/P colostomy Code(s): Z93.3 - COLOSTOMY STATUS
--- NOTE | 2016-02-21 14:46 | PN ---
Progress Note, Physician History of Present Illness: Pt seen and examined at bedside. She is awake and alert. She is waiting for transfer to [facility] for EPS and PPM placement. - Current Medication List Current Medications: Active Medications Atorvastatin Calcium (Lipitor -) 20 mg PO HS NAHED Last Admin: 02/20/16 22:46 Dose: 20 mg Heparin Sodium (Porcine) (Heparin -) 5,000 unit IVPUSH PRN PRN Heparin Sodium (Porcine) (Heparin -) 1,000 unit IVPUSH PRN PRN Last Admin: 02/19/16 18:49 Dose: 1,000 unit Heparin Sodium/Dextrose (Heparin Infusion -) 500 mls @ 16 mls/hr IVPB TITR NAHED ; 800 UNITS/HR PRN Reason: Protocol Last Admin: 02/21/16 07:56 Dose: 17 mls/hr Travatan Z Opth Drops - Patient Own Med 0 ml OU HS NAHED Last Admin: 02/20/16 23:02 Dose: 1 ml Non-Formulary Medication (Pilocarpine 0.5% [Pilostat 0.5% -]) 1 drop OU ASDIR NAHED Azopt Opth Drops - (Patient Own Med) 1 drop OU BID NAHED Last Admin: 02/21/16 09:33 Dose: 1 drop Nystatin (Nystop Powder -) 1 applic TP BID NAHED Last Admin: 02/21/16 09:33 Dose: 1 applic Ondansetron HCl (Zofran Injection) 4 mg IVPB Q4H PRN PRN Reason: NAUSEA - Objective Vital Signs: Vital Signs Temperature 98.6 F 02/21/16 09:00 Pulse Rate 98 H 02/21/16 09:00 Respiratory Rate 20 02/21/16 09:00 Blood Pressure 140/68 02/21/16 09:00 O2 Sat by Pulse Oximetry (%) 95 02/21/16 09:00 Constitutional: Yes: Calm Eyes: Yes: Conjunctiva Clear HENT: Yes: Atraumatic Neck: Yes: Supple Cardiovascular: Yes: Pulse Irregular, S1, S2 Respiratory: Yes: CTA Bilaterally Gastrointestinal: Yes: Normal Bowel Sounds, Soft Genitourinary: Yes: WNL Musculoskeletal: Yes: WNL Edema: No Neurological: Yes: Oriented Psychiatric: Yes: Oriented Labs: CBC, BMP 02/21/16 05:35 02/21/16 05:35 INR, PTT INR 1.59 (0.82-1.09) H 02/19/16 05:00 Problem List - Problems (1) Acute on chronic renal insufficiency Code(s): N28.9 - DISORDER OF KIDNEY AND URETER, UNSPECIFIED N18.9 - CHRONIC KIDNEY DISEASE, UNSPECIFIED (2) Atrial fibrillation with rapid ventricular response Code(s): I48.91 - UNSPECIFIED ATRIAL FIBRILLATION (3) Dehydration Code(s): E86.0 - DEHYDRATION (4) Elevated lipase Code(s): R74.8 - ABNORMAL LEVELS OF OTHER SERUM ENZYMES (5) Generalized weakness Code(s): R53.1 - WEAKNESS (6) Shortness of breath Code(s): R06.02 - SHORTNESS OF BREATH (7) Vomiting Code(s): R11.10 - VOMITING, UNSPECIFIED (8) COPD (chronic obstructive pulmonary disease) Code(s): J44.9 - CHRONIC OBSTRUCTIVE PULMONARY DISEASE, UNSPECIFIED (9) H/O: lung cancer Code(s): Z85.118 - PERSONAL HISTORY OF MALIGNANT NEOPLASM OF BRONCHUS AND LUNG Assessment/Plan Current Medications Generic Name Dose Route Start Last Admin Trade Name Freq PRN Reason Stop Dose Admin Atorvastatin Calcium 20 mg 02/16/16 22:00 02/20/16 22:46 Lipitor - PO 20 mg HS NAHED Administration Heparin Sodium (Porcine) 5,000 unit 02/19/16 12:38 Heparin - IVPUSH PRN PRN Heparin Sodium (Porcine) 1,000 unit 02/19/16 12:38 02/19/16 18:49 Heparin - IVPUSH 1,000 unit PRN PRN Administration Heparin Sodium/Dextrose 500 mls @ 16 mls/hr 02/19/16 12:45 02/21/16 07:56 Heparin Infusion - IVPB 17 mls/hr TITR NAHED Administration Protocol 800 UNITS/HR Travatan Z Opth 0 ml 02/18/16 22:00 02/20/16 23:02 Drops - Patient Own OU 1 ml Med HS NAHED Administration Non-Formulary Medication 1 drop 02/17/16 22:45 Pilocarpine 0.5% [Pilostat 0.5% -] OU ASDIR NAHED Azopt Opth Drops - 1 drop 02/18/16 22:00 02/21/16 09:33 Patient Own Med OU 1 drop BID NAHED Administration Nystatin 1 applic 02/20/16 22:00 02/21/16 09:33 Nystop Powder - TP 1 applic BID NAHED Administration Ondansetron HCl 4 mg 02/16/16 12:11 Zofran Injection IVPB Q4H PRN NAUSEA Impression 1. CKD with acute component 2. a-fib 3. hx TIA 4. hx lung cancer 5. HTN 6. hyperlipidemia 7. COPD Plan - renal function continues to improve - repeat labs in am - pt is going to [facility] for EPS and possible PPM - will need outpt follow up, can see in office - follow up urine cultures, if positive will need abx - will follow Dr Kathleen
--- NOTE | 2016-02-21 17:09 | EKG ---
Test Reason : Blood Pressure : / mmHG Vent. Rate : 063 BPM Atrial Rate : 063 BPM P-R Int : 168 ms QRS Dur : 118 ms QT Int : 456 ms P-R-T Axes : 000 -07 066 degrees QTc Int : 466 ms NORMAL SINUS RHYTHM LEFT BUNDLE BRANCH BLOCK ABNORMAL ECG WHEN COMPARED WITH ECG OF 16-FEB-2016 08:11, SINUS RHYTHM HAS REPLACED ATRIAL FLUTTER VENT. RATE HAS DECREASED BY 41 BPM Confirmed by RAMIN ALVARADO, PAUL ([id number]) on 02/21/2016 5:08:38 PM Referred By: Confirmed By:PAUL FAUSTIN MD
[2016-02-21 17:17] VITALS: BP 148/74; PULSE 100; TEMP 97
== END 2016-02-21 18:18 | disposition short-term general hospital (02) | DRG 308 ==
LOC: JER 07:28 → JERBED 10:01 → J4W 16:10
PROVIDERS: ADMIT Family Medicine; ATTEND Family Medicine
DX: I48.91 Unspecified atrial fibrillation (principal); I50.33 Acute on chronic diastolic (congestive) heart failure; N18.4 Chronic kidney disease, stage 4 (severe); N17.9 Acute kidney failure, unspecified; I13.0 Hypertensive heart and chronic kidney disease with heart failure and stage 1 through stage 4 chronic kidney disease, or unspecified chronic kidney disease; E78.00 Pure hypercholesterolemia, unspecified; Z86.73 Personal history of transient ischemic attack (TIA), and cerebral infarction without residual deficits; J44.9 Chronic obstructive pulmonary disease, unspecified; Z85.118 Personal history of other malignant neoplasm of bronchus and lung; H40.9 Unspecified glaucoma; E86.0 Dehydration
CPT/HCPCS: 36415; 71010-TC; 80048; 80053; 80061; 81003; 81015; 82272; 82550; 83690; 83721; 83735; 83880; 84100; 84443; 84484; 85025; 85610; 85730; 87086; 93005; 93010; 93306-TC; 94761; 99284-25; G0008; J1644; Q2037

== ENCOUNTER 2016-06-22 13:13 | Inpatient (IN) | payer OTHER ==
[2016-06-22 13:26] VITALS: BMI 21.9
[2016-06-22] MEDS ORDERED: dilTIAZem HCL 50 MG/10 ML - 10 ML VIAL IVPUSH ONE ×3 (13:43→14:00)
--- NOTE | 2016-06-22 13:43 | PDOC ---
History of Present Illness - History of Present Illness Initial Comments: 06/22/16 17:36 The patient is a 85 year old female, with a significant past medical history of lung cancer (13 years ago), hypertension, hypercholesterolemia, Afib (on cardizem), TIA (on coumadin), who presents to the emergency department with palpitations. hypotension, shortness of breath, nausea, and vomiting today. She denies chest pain, headache and dizziness. She denies fever, chills, nausea , diarrhea and constipation. She denies dysuria, frequency, urgency and hematuria. Allergies: Penicillins PCP - Dr. Vanessa <Delphine Pereyra - Last Filed: 06/22/16 18:12> <Martha Rodriguez - Last Filed: 07/06/16 12:15> - General Chief Complaint: Shortness of Breath Stated Complaint: SOB Time Seen by Provider: 06/22/16 13:33 Past History <Delphine Pereyra - Last Filed: 06/22/16 18:12> - Past Medical History Anemia: No Asthma: No Cancer: Yes (lung ca 10yrs ago,and chemo) Cardiac Disorders: Yes (A-fib) CVA: No COPD: Yes CHF: No Dementia: No Diabetes: No GI Disorders: Yes (Sigmoid perforation, peritonitis, colostomy) Disorders: No HTN: Yes Hypercholesterolemia: Yes Liver Disease: No Suicide Attempt (Hx): No Seizures: No Thyroid Disease: No - Surgical History Abdominal Surgery: Yes (colostomy) Appendectomy: Yes Cardiac Surgery: No Cholecystectomy: No Lung Surgery: Yes (right thoracotomy) Neurologic Surgery: No Orthopedic Surgery: No - Immunization History Td Vaccination: Yes TDAP Vaccination: No Immunization Up to Date: Yes - Psycho/Social/Smoking Cessation Hx Anxiety: No Suicidal Ideation: No Smoking History: Former smoker Have you smoked in the past 12 months: No Number of Cigarettes Smoked Daily: 0 If you are a former smoker, when did you quit?: 1994 Information on smoking cessation initiated: No Hx Alcohol Use: No Drug/Substance Use Hx: No Substance Use Type: None Hx Substance Use Treatment: No <Martha Rodriguez - Last Filed: 07/06/16 12:15> - Past Medical History Allergies/Adverse Reactions: Allergies Allergy/AdvReac Type Severity Reaction Status Date / Time Penicillins Allergy Verified 06/22/16 13:27 Home Medications: Ambulatory Orders Apixaban [Eliquis] 12.5 mg PO BID 06/22/16 Aspirin [ASA -] 81 mg PO DAILY 06/22/16 Brinzolamide [Azopt] 1 drop OU BID 06/22/16 Travoprost [Travatan Z] 1 drop OU HS 06/22/16 Zolpidem Tartrate [Ambien] 5 mg PO HS 06/22/16 Apixaban [Eliquis -] 2.5 mg PO BID tablet 06/29/16 Ipratropium 0.02% Nebulizer [Atrovent 0.02% Nebulizer -] 1 amp NEB QIDR amp Metoprolol Succinate [Toprol XL -] 50 mg PO DAILY #30 mg 06/29/16 Nystatin Powder [Nystop Powder -] 1 applic TP BID applic 06/29/16 Review of Systems - Review of Systems Able to Perform ROS?: Yes Comments:: 06/22/16 18:12 GENERAL/CONSTITUTIONAL: No fever or chills. No weakness. HEAD, EYES, EARS, NOSE AND THROAT: No change in vision. No ear pain or discharge. No sore throat. CARDIOVASCULAR: (+) Palpitations and SOB. No chest pain. RESPIRATORY: No cough, wheezing, or hemoptysis. GASTROINTESTINAL: (+) nausea, vomiting, No diarrhea or constipation. GENITOURINARY: No dysuria, frequency, or change in urination. MUSCULOSKELETAL: No joint or muscle swelling or pain. No neck or back pain. SKIN: No rash NEUROLOGIC: No headache, vertigo, loss of consciousness, or change in strength/ sensation. ENDOCRINE: No increased thirst. No abnormal weight change. HEMATOLOGIC/LYMPHATIC: No anemia, easy bleeding, or history of blood clots. ALLERGIC/IMMUNOLOGIC: No hives or skin allergy. <Delphine Pereyra - Last Filed: 06/22/16 18:12> *Physical Exam - Vital Signs Last Vital Signs Temp Pulse Resp BP Pulse Ox 157 H 32 H 121/83 87 L 06/22/16 13:21 06/22/16 13:21 06/22/16 13:21 06/22/16 13:21 <Delphine Pereyra - Last Filed: 06/22/16 18:12> - Vital Signs Last Vital Signs Temp Pulse Resp BP Pulse Ox 157 H 32 H 121/83 87 L 06/22/16 13:21 06/22/16 13:21 06/22/16 13:21 06/22/16 13:21 - Physical Exam Comments: GENERAL: Awake, alert, and fully oriented. Appears uncomfortable. Mild pallor. HEAD: No signs of trauma EYES: PERRLA, EOMI, sclera anicteric, conjunctiva clear ENT: Auricles normal inspection, hearing grossly normal, nares patent, oropharynx clear without exudates. Moist mucosa NECK: Normal ROM, supple, no lymphadenopathy, JVD, or masses LUNGS: Breath sounds equal, clear to auscultation bilaterally. No wheezes, and no crackles HEART: Tachycardic, no m/r/g ABDOMEN: Soft, nontender, normoactive bowel sounds. No guarding, no rebound. No masses EXTREMITIES: Normal range of motion, no edema. No clubbing or cyanosis. No cords, erythema, or tenderness NEUROLOGICAL: Cranial nerves II through XII grossly intact. Normal speech, normal gait SKIN: Warm, Dry, normal turgor, no rashes or lesions noted. <Martha Rodriguez - Last Filed: 07/06/16 12:15> ED Treatment Course - LABORATORY CBC & Chemistry Diagram: 06/22/16 13:43 06/22/16 13:43 - RADIOLOGY Radiograph Interpretation: 06/22/16 14:58 CXR was read by Dr. Keys at 14:12 Impression: CHF - Medications Given in the ED: ED Medications Discontinued Medications Generic Name Dose Route Start Last Admin Trade Name Susan PRN Reason Stop Dose Admin Diltiazem HCl 10 mg 06/22/16 13:43 06/22/16 13:00 Cardizem Injection - IVPUSH 06/22/16 13:44 10 mg ONCE ONE Administration Diltiazem HCl 10 mg 06/22/16 13:55 06/22/16 13:58 Cardizem Injection - IVPUSH 06/22/16 13:56 10 mg ONCE ONE Administration <Delphine Pereyra - Last Filed: 06/22/16 18:12> - LABORATORY CBC & Chemistry Diagram: 06/28/16 06:00 06/29/16 06:11 <Martha Rodriguez - Last Filed: 07/06/16 12:15> Medical Decision Making - Medical Decision Making 06/22/16 13:59 Dr. Christianson, hospital superintendent, was paged via phone answering service at this time requesting a call back for doctor to doctor consult. Dr. Christianson was paged a second time via phone answering service at 14:20 requesting a call back for doctor to doctor consult. Dr. Christianson was called on his cell phone at 14:50 and the patient's case was discussed. At 17:33, I called Dr. Vanessa and the patient's case was discussed. Dr. Vanessa accepts the patient for admission. Dr. Kathleen, echocardiography tech, was called for a doctor to doctor consult at 17:53 and the patient's case was discussed 06/22/16 18:06 Dr. Christianson was paged at this time via phone answering service requesting a call back so that Dr. Christianson can be updated regarding the patient's progression of care. <Delphine Pereyra - Last Filed: 06/22/16 18:12> - Critical Care Time Total Critical Care Time (minutes): 35 Critical Care Statement: The care of this patient involved high complexity decision making to prevent further life threatening deterioration of the patient 's condition and/or to evalute & treat vital organ system(s) failure or risk of failure. - Medical Decision Making Patient with afib and RVR, very difficult to control. Was initially not responding to cardizem via IV push. I gave B-david, which briefly controlled her HR, then she went back into RVR. Discussed with Dr. Christianson, at which time we gave digoxin, which helped significantly. In light of ARF, discussed with Dr. Kathleen, who will also evaluate, especially considering the digoxin. <Martha Rodriguez - Last Filed: 07/06/16 12:15> *DC/Admit/Observation/Transfer - Attestations Scribe Attestion: 06/22/16 18:13 Documentation prepared by Delphine Pereyra, acting as medical office scheduler for Martha Rodriguez MD, <Delphine Pereyra - Last Filed: 06/22/16 18:12> - Discharge Dispostion Admit: Yes <Martha Rodriguez - Last Filed: 07/06/16 12:15> Diagnosis at time of Disposition: Atrial fibrillation with rapid ventricular response - Discharge Dispostion Disposition: HOME Condition at time of disposition: Fair - Prescriptions - Referrals
[2016-06-22] MEDS ORDERED: dilTIAZem HCL 125 MG/25 ML - 25 ML VIAL ONE (13:45)
[2016-06-22] MEDS ORDERED: ONDANSETRON 4 MG/2 ML VIAL ONE (13:55)
[2016-06-22] MEDS ORDERED: SODIUM CHLORIDE 500 ML IV STA (14:00)
[2016-06-22] MEDS ORDERED: ONDANSETRON 4 MG/2 ML VIAL IVPUSH ONE (14:00)
[2016-06-22] MEDS ORDERED: dilTIAZem HCL 50 MG/10 ML - 10 ML VIAL ONE (14:01)
[2016-06-22] MEDS ORDERED: METOPROLOL TARTRATE 5 MG/5 ML VIAL ONE (14:07)
[2016-06-22 14:13] LABS: BASOPHIL 0.3 % (0-2.0); MCH 27.1 pg (25.7-33.7); MCHC 31.5 g/dl (32.0-36.0); MEAN CELL VOLUME 85.9 fl (80-96); MEAN PLT VOLUME 9.6 fl (7.5-11.1); NEUTROPHILS 87.9 % (42.8-82.8); PLATELET COUNT 228 K/MM3 (134-434); RDW 15.6 % (11.6-15.6); WHITE BLOOD COUNT 19.6 K/mm3 (4.0-10.0)
[2016-06-22 14:27] LABS: ALBUMIN 4.1 g/dl (3.4-5.0); BILIRUBIN,TOTAL 1.1 mg/dL (0.2-1.0); CALCIUM 9.8 mg/dL (8.5-10.1); CREATININE 3.5 mg/dL (0.55-1.02); TOT PROT 8.3 g/dl (6.4-8.2)
[2016-06-22 14:29] LABS: TROPONIN I 0.18 ng/ml (0.00-0.05)
[2016-06-22 14:32] LABS: INR 1.97 (0.82-1.09)
[2016-06-22] MEDS ORDERED: METOPROLOL TARTRATE 5 MG/5 ML VIAL IVPUSH ONE (14:41)
--- NOTE | 2016-06-22 15:00 | CON.CARD ---
Consult Consult Specialty:: cardiology Reason for Consultation:: cardiac arrhythmia - History of Present Illness History of Present Illness: 85 yr old white woman with PMHx lung CA, AF, COPD, HTN, now admitted with shortness of breath; she was found to be in AF with RVR. 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: Yes: Alzheimer's Cardio/Vascular: Yes: AFIB, HTN, Hyperlipdemia Pulmonary: Yes: Cancer (s/p chemo and resction), COPD Hepatobiliary: Yes: Cholelithiasis Renal/: Yes: Renal Failure (CkD IV), Renal Inusuff (see HPI) Reproductive: Yes: Postmenopausal ...: No Musculoskeletal: Yes: Osteoarthritis - Past Surgical History Past Surgical History: Yes: Thoracotomy (right) - Alcohol/Substance Use Hx Alcohol Use: No History of Substance Use: reports: None - Smoking History Smoking history: Former smoker Have you smoked in the past 12 months: No Aproximately how many cigarettes per day: 0 If you are a former smoker, when did you quit?: 1994 - Social History History of Recent Travel: No Home Medications - Allergies Allergies/Adverse Reactions: Allergies Allergy/AdvReac Type Severity Reaction Status Date / Time Penicillins Allergy Verified 06/22/16 13:27 - Home Medications Home Medications: Ambulatory Orders Apixaban [Eliquis] 12.5 mg PO BID 06/22/16 Aspirin [ASA -] 81 mg PO DAILY 06/22/16 Brinzolamide [Azopt] 1 drop OU BID 06/22/16 Diltiazem Cd [Cardizem Cd -] 240 mg PO DAILY 06/22/16 Travoprost [Travatan Z] 1 drop OU HS 06/22/16 Zolpidem Tartrate [Ambien] 5 mg PO HS 06/22/16 Family Disease History - Family Disease History Family History: Denies Review of Systems - Review of Systems Constitutional: reports: No Symptoms Eyes: reports: No Symptoms HENT: reports: No Symptoms Neck: reports: No Symptoms Cardiovascular: reports: Shortness of Breath Gastrointestinal: reports: No Symptoms Genitourinary: reports: No Symptoms Breasts: reports: No Symptoms Reported Integumentary: reports: No Symptoms Neurological: reports: No Symptoms Endocrine: reports: No Symptoms Hematology/Lymphatic: reports: No Symptoms Psychiatric: reports: No Symptoms - Risk Factors Known Risk Factors: Yes: Age, Hypertension, Physical Inactivity, Other (COPD; AF ) Vital Signs: Vital Signs Temperature Pulse Rate 144 H 06/22/16 14:56 Respiratory Rate 30 H 06/22/16 14:56 Blood Pressure 91/75 06/22/16 14:56 O2 Sat by Pulse Oximetry (%) 87 L 06/22/16 13:21 - Other Data Labs, Other Data: CBC, BMP 06/22/16 13:43 06/22/16 13:43 INR, PTT INR 1.97 (0.82-1.09) H 06/22/16 13:43 Troponin, BNP 06/22/16 13:43 Troponin I 0.18 H Troponin, BNP 06/22/16 13:43 Troponin I 0.18 H Imaging - Results Chest X-ray: Image Reviewed (mild CHF) EKG: Image Reviewed (SVT) Problem List - Problems (1) Atrial fibrillation Assessment/Plan: SVT noted on initial EKG; did not initially respond to ditiazem (which she has been on ) or metoprolol; reverted to normal sinus rhythm with addition of IV digoxin (pt was relatively hypotensive after the 1st two agents). I would recommend not continuing digoxin, if HR remains well-controlled on one of the other agents, because of its potential adverse effects. F/u ECHO : very limited study 02/28 noted normal LVEF). PPM interrogation. F/u elevated BUN/Cr, electrolytes. F/ui TSH. F/u TNI serially. Code(s): I48.91 - UNSPECIFIED ATRIAL FIBRILLATION (2) Congestive heart failure Assessment/Plan: f/u ECHO. Code(s): I50.9 - HEART FAILURE, UNSPECIFIED (3) COPD (chronic obstructive pulmonary disease) Assessment/Plan: f/u with bulk fluids handler. Code(s): J44.9 - CHRONIC OBSTRUCTIVE PULMONARY DISEASE, UNSPECIFIED (4) H/O: lung cancer Code(s): Z85.118 - PERSONAL HISTORY OF MALIGNANT NEOPLASM OF BRONCHUS AND LUNG (5) Hypertension Code(s): I10 - ESSENTIAL (PRIMARY) HYPERTENSION (6) Renal insufficiency Assessment/Plan: F/u with vaudeville actor. Treat hyperkaemia. Code(s): N28.9 - DISORDER OF KIDNEY AND URETER, UNSPECIFIED
[2016-06-22] MEDS ORDERED: DIGOXIN 0.5 MG/2 ML AMPUL IVPUSH ONE ×2 (15:11→23:11)
[2016-06-22] MEDS ORDERED: DIGOXIN 0.5 MG/2 ML AMPUL ONE (15:15)
[2016-06-22] MEDS ORDERED: LEVOFLOXACIN 750 MG IVPB 150 ML IVPB ONE ×2 (15:38→19:20)
--- NOTE | 2016-06-22 16:44 | EKG ---
Test Reason : Blood Pressure : / mmHG Vent. Rate : 159 BPM Atrial Rate : 208 BPM P-R Int : 000 ms QRS Dur : 122 ms QT Int : 312 ms P-R-T Axes : 000 -09 180 degrees QTc Int : 507 ms SUPRAVENTRICULAR TACHYCARDIA LEFT BUNDLE BRANCH BLOCK ABNORMAL ECG Confirmed by TEE BRADSHAW MD ([id number]) on 06/22/2016 4:44:26 PM Referred By: Confirmed By:TEE BRADSHAW MD
[2016-06-23] MEDS: ZOLPIDEM TARTRATE 5 MG TABLET PO PRN ×2 (00:03→22:18)
[2016-06-23 01:02] LABS: COCKROFT - GAULT 10.7015; CREATININE 3.3 mg/dL (0.55-1.02)
[2016-06-23 07:43] LABS: BASOPHIL 0.2 % (0-2.0); MCH 27.1 pg (25.7-33.7); MCHC 31.4 g/dl (32.0-36.0); MEAN CELL VOLUME 86.3 fl (80-96); MEAN PLT VOLUME 9.7 fl (7.5-11.1); NEUTROPHILS 85.9 % (42.8-82.8); RDW 15.8 % (11.6-15.6); WHITE BLOOD COUNT 13.4 K/mm3 (4.0-10.0)
[2016-06-23 08:21] LABS: ALBUMIN 3.2 g/dl (3.4-5.0); CALCIUM 8.1 mg/dL (8.5-10.1)
[2016-06-23 08:25] LABS: BILIRUBIN,TOTAL 0.7 mg/dL (0.2-1.0); COCKROFT - GAULT 10.965; CREATININE 3.5 mg/dL (0.55-1.02); TOT PROT 6.3 g/dl (6.4-8.2)
[2016-06-23 08:47] LABS: PLATELET COUNT 134 K/MM3 (134-434); PLATELET ESTIMATE ADEQUATE (NORMAL)
[2016-06-23] MEDS ORDERED: HEPARIN NA (PORCINE) 5,000 UNITS/ML 1ML VIAL SQ SCH (10:00)
[2016-06-23] MEDS: APIXABAN 2.5 MG TABLET PO SCH ×2 (11:31→22:18)
--- NOTE | 2016-06-23 13:12 | PN ---
Progress Note, Physician Chief Complaint: Pt alert; feels weak; denies having had shortness of breath, palpitations, or chest pain over the past few days. History of Present Illness: 85 yr old white woman with PMHx lung CA, AF, s/p PPM ([employer]), COPD, HTN, now admitted with shortness of breath; she was found to be tachycardia (SVT ). - Current Medication List Current Medications: Active Medications Apixaban (Eliquis -) 2.5 mg PO BID [facility] Last Admin: 06/23/16 11:31 Dose: 2.5 mg Metoprolol Succinate (Toprol Xl -) 25 mg PO DAILY [facility] Zolpidem Tartrate (Ambien -) 5 mg PO HS PRN PRN Reason: INSOMNIA Last Admin: 06/23/16 00:03 Dose: 5 mg - Objective Vital Signs: Vital Signs Temperature 97.9 F 06/23/16 08:09 Pulse Rate 60 06/23/16 08:09 Respiratory Rate 20 06/23/16 08:09 Blood Pressure 122/58 06/23/16 08:09 O2 Sat by Pulse Oximetry (%) 95 06/22/16 20:00 Constitutional: Yes: Calm Eyes: Yes: WNL HENT: Yes: WNL Neck: Yes: WNL Cardiovascular: Yes: Regular Rate and Rhythm Respiratory: Yes: Diminished Gastrointestinal: Yes: Soft ...Rectal Exam: Yes: Deferred Genitourinary: No: Anuria Breast(s): Yes: WNL Extremities: Yes: Cool Edema: No Peripheral Pulses WNL: No Peripheral Pulses: Left Doralis Pedis: 1+, Right Dorsalis Pedis: 1+ Integumentary: Yes: WNL Neurological: Yes: Alert, Weakness Psychiatric: Yes: WNL Labs: CBC, BMP 06/23/16 05:40 06/23/16 05:40 INR, PTT INR 1.97 (0.82-1.09) H 06/22/16 13:43 Abnormal Lab Results 06/22/16 06/22/16 06/22/16 13:43 13:43 13:43 WBC 19.6 H D Hgb MCHC 31.5 L RDW Neutrophils % 87.9 H D Lymphocytes % 5.1 L D INR 1.97 H Potassium Carbon Dioxide 18 L D Anion Gap 17 H BUN 53 H D Creatinine 3.5 H D Random Glucose 136 H D Calcium Total Bilirubin 1.1 H D Alkaline Phosphatase 127 H Troponin I 0.18 H Total Protein 8.3 H Albumin 06/23/16 06/23/16 06/23/16 00:08 05:40 05:40 WBC 13.4 H D Hgb 10.3 L D MCHC 31.4 L RDW 15.8 H Neutrophils % 85.9 H Lymphocytes % 5.4 L INR Potassium 5.3 H Carbon Dioxide 19 L Anion Gap BUN 66 H D 66 H Creatinine 3.3 H 3.5 H Random Glucose 73 L Calcium 8.0 L 8.1 L Total Bilirubin Alkaline Phosphatase Troponin I Total Protein 6.3 L D Albumin 3.2 L D - ....Imaging Chest X-ray: Image Reviewed (improving congestive changes) Other: Image Reviewed (telemetry: NSR; occasional APCs) Problem List - Problems (1) Atrial fibrillation Assessment/Plan: Now in sinus rhythm. ECHO: severely reduced LVEF. Plan: Discontinue diltiazem. Start metoprolol ER (pt denies hx bronchial asthma). Unable to start ACEI, ARB, or spironolactone presently due to renal dysfunction , hyperkalemia. Once pt noted to tolerate metoprolol, would add hydralazaine + nitrate ( systolic CHF; HTN). Dual-chamber ICD interrogation. F/u TSH, lipids. F/u TNI serially. F/u today's EKG. Treatment of hyperkalemia; track rider evaluating justin dysfunction. Code(s): I48.91 - UNSPECIFIED ATRIAL FIBRILLATION (2) COPD (chronic obstructive pulmonary disease) Assessment/Plan: f/u with coin machine collector. Code(s): J44.9 - CHRONIC OBSTRUCTIVE PULMONARY DISEASE, UNSPECIFIED (3) H/O: lung cancer Code(s): Z85.118 - PERSONAL HISTORY OF MALIGNANT NEOPLASM OF BRONCHUS AND LUNG (4) Hypertension Code(s): I10 - ESSENTIAL (PRIMARY) HYPERTENSION (5) Renal insufficiency Code(s): N28.9 - DISORDER OF KIDNEY AND URETER, UNSPECIFIED (6) Acute on chronic systolic (congestive) heart failure Assessment/Plan: (Please see under "atrial fibrillation"). F/u TSH. Keep K 4-4.5, Mg 2-2.3. Code(s): I50.23 - ACUTE ON CHRONIC SYSTOLIC (CONGESTIVE) HEART FAILURE
[2016-06-23 14:37] LABS: THYROID STIMULATING HORMONE 1.69 uIU/ml (0.358-3.74); TROPONIN I 0.19 ng/ml (0.00-0.05)
--- NOTE | 2016-06-23 14:39 | CONSULT ---
Consult Consult Specialty:: Nephrology Reason for Consultation:: CKD - History of Present Illness Chief Complaint: palpitations History of Present Illness: Pt is an 85 year old female with pmhx of lung cancer, a-fib, CKD, PPM, TIA, HTN , and hyperlipidemia who presents to the ER with palpitations. She was found to be in rapid a-fib. She did was admitted for treatment. Her rate was difficult to control and she was started on digoxin. She was found to have elevated creatinine and I was called to evaluate her. She denies dysuria or hematuria. She does complain of shortness of breath. She denies fevers or chills. She denies nsaid use. 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 Cardio/Vascular: Yes: AFIB, HTN, Hyperlipdemia Pulmonary: Yes: Cancer (s/p chemo and resction), COPD Hepatobiliary: Yes: Cholelithiasis Renal/: Yes: Renal Failure (CkD IV), Renal Inusuff (see HPI) ...: No Musculoskeletal: Yes: Osteoarthritis - Past Surgical History Past Surgical History: Yes: Thoracotomy (right) - Alcohol/Substance Use Hx Alcohol Use: No History of Substance Use: reports: None - Smoking History Smoking history: Former smoker Have you smoked in the past 12 months: No Aproximately how many cigarettes per day: 0 If you are a former smoker, when did you quit?: 1994 - Social History History of Recent Travel: No Home Medications - Allergies Allergies/Adverse Reactions: Allergies Allergy/AdvReac Type Severity Reaction Status Date / Time Penicillins Allergy Verified 06/22/16 13:27 - Home Medications Home Medications: Ambulatory Orders Apixaban [Eliquis] 12.5 mg PO BID 06/22/16 Aspirin [ASA -] 81 mg PO DAILY 06/22/16 Brinzolamide [Azopt] 1 drop OU BID 06/22/16 Diltiazem Cd [Cardizem Cd -] 240 mg PO DAILY 06/22/16 Travoprost [Travatan Z] 1 drop OU HS 06/22/16 Zolpidem Tartrate [Ambien] 5 mg PO HS 06/22/16 Family Disease History - Family Disease History Family History: Denies Review of Systems - Review of Systems Constitutional: reports: Malaise Eyes: reports: No Symptoms Neck: reports: No Symptoms Cardiovascular: reports: Palpitations, Shortness of Breath Respiratory: reports: SOB Gastrointestinal: reports: No Symptoms Genitourinary: reports: No Symptoms Musculoskeletal: reports: No Symptoms Integumentary: reports: No Symptoms Neurological: reports: No Symptoms Endocrine: reports: No Symptoms Hematology/Lymphatic: reports: No Symptoms Psychiatric: reports: No Symptoms Physical Exam Vital Signs: Vital Signs Temperature 97.9 F 06/23/16 08:09 Pulse Rate 60 06/23/16 08:09 Respiratory Rate 20 06/23/16 08:09 Blood Pressure 122/58 06/23/16 08:09 O2 Sat by Pulse Oximetry (%) 95 06/22/16 20:00 Constitutional: Yes: Calm Eyes: Yes: Conjunctiva Clear HENT: Yes: Atraumatic Cardiovascular: Yes: Pulse Irregular, S1, S2 Respiratory: Yes: Diminished, On Nasal O2 Gastrointestinal: Yes: Soft Renal/: Yes: WNL Musculoskeletal: Yes: WNL Edema: No Neurological: Yes: Oriented Psychiatric: Yes: Oriented Labs: CBC, BMP 06/23/16 05:40 06/23/16 05:40 Laboratory Tests 02/20/16 02/21/16 06/22/16 05:30 05:35 13:43 WBC Hgb Sodium Potassium Chloride Carbon Dioxide Anion Gap BUN Creatinine 2.0 H 1.9 H 3.5 H D CK-MB (CK-2) Troponin I 06/23/16 06/23/16 06/23/16 00:08 05:40 05:40 WBC 13.4 H D Hgb 10.3 L D Sodium 136 Potassium 5.3 H Chloride 104 Carbon Dioxide 22 Anion Gap 10 BUN 66 H Creatinine 3.3 H 3.5 H CK-MB (CK-2) 4.55 H Troponin I 06/23/16 14:30 WBC Hgb Sodium Potassium Chloride Carbon Dioxide Anion Gap BUN Creatinine CK-MB (CK-2) Troponin I 0.16 H Imaging - Results Chest X-ray: Report Reviewed (improving congestion) Other: Report Reviewed (chf with reduced ef) Problem List - Problems (1) Acute on chronic systolic (congestive) heart failure Code(s): I50.23 - ACUTE ON CHRONIC SYSTOLIC (CONGESTIVE) HEART FAILURE (2) Atrial fibrillation Code(s): I48.91 - UNSPECIFIED ATRIAL FIBRILLATION (3) Atrial fibrillation with rapid ventricular response Code(s): I48.91 - UNSPECIFIED ATRIAL FIBRILLATION (4) Acute on chronic renal insufficiency Code(s): N28.9 - DISORDER OF KIDNEY AND URETER, UNSPECIFIED N18.9 - CHRONIC KIDNEY DISEASE, UNSPECIFIED (5) Hyperlipidemia Code(s): E78.5 - HYPERLIPIDEMIA, UNSPECIFIED Assessment/Plan Current Medications Generic Name Dose Route Start Last Admin Trade Name Freq PRN Reason Stop Dose Admin Apixaban 2.5 mg 06/23/16 10:00 06/23/16 11:31 Eliquis - PO 2.5 mg BID NAHED Administration Ipratropium [place] 1 amp 06/23/16 18:00 06/23/16 17:25 Atrovent 0.02% Nebulizer - NEB 1 amp QIDR NAHED Administration Metoprolol Succinate 25 mg 06/24/16 10:00 Toprol Xl - PO DAILY [facility]ED Zolpidem Tartrate 5 mg 06/22/16 23:37 06/23/16 00:03 Ambien - PO 5 mg HS PRN Administration INSOMNIA Impression 1. CKD with acute component 2. a-fib 3. hx TIA 4. hx lung cancer 5. HTN 6. hyperlipidemia 7. COPD 8. CHF Plan - check ultrasound of kidney - send ua with lytes - recommend to stop fluids, will likely need diuretics - check bnp - cxr appears improved - will send renal workup - no obstruction on bladder ultrasound Dr Kathleen
[2016-06-23] MEDS ORDERED: SODIUM CHLORIDE 0.45% 1,000 ML IV SCH (15:45)
--- NOTE | 2016-06-23 16:02 | HP ---
Admitting History and Physical - Admission Chief Complaint: shortness of breath History of Present Illness: The patient is a 85 year old female, with a significant past medical history of lung cancer (13 years ago), COPD, hypertension, hypercholesterolemia, Afib (on cardizem and coumadin), TIA who presents to the emergency department with palpitations. hypotension, shortness of breath, nausea, and vomiting. She denied chest pain, headache and dizziness. She denied fever, chills, nausea , diarrhea and constipation. She denied dysuria, frequency, urgency and hematuria. ER evaluatyion found her to be in A Fib with RVR ( HR 160s) / treated with IV diltiazem and Lopressor IV without success and resulting in drop in BP. Patient was given dose of IV digoxin and responded with adequate control-- additional dose of .25 given last night with total of 0.75 digoxin. No daily dose continued as per cardio recommendation. She has been continued on CCB and Eliquis .. Echo from 02/2016 noted to have Normal LV. 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 Cardiovascular: Yes: AFIB, HTN, Hyperlipdemia Pulmonary: Yes: Cancer (s/p chemo and resction), COPD Hepatobiliary: Yes: Cholelithiasis Renal/: Yes: Renal Failure (CkD IV), Renal Inusuff (see HPI) ...: No Musculoskeletal: Yes: Osteoarthritis - Past Surgical History Past Surgical History: Yes: Thoracotomy (right) - Smoking History Smoking history: Former smoker Have you smoked in the past 12 months: No Aproximately how many cigarettes per day: 0 If you are a former smoker, when did you quit?: 1994 - Alcohol/Substance Use Hx Alcohol Use: No History of Substance Use: reports: None - Social History History of Recent Travel: No Home Medications - Allergies Allergies/Adverse Reactions: Allergies Allergy/AdvReac Type Severity Reaction Status Date / Time Penicillins Allergy Verified 06/22/16 13:27 - Home Medications Home Medications: Ambulatory Orders Apixaban [Eliquis] 12.5 mg PO BID 06/22/16 Aspirin [ASA -] 81 mg PO DAILY 06/22/16 Brinzolamide [Azopt] 1 drop OU BID 06/22/16 Diltiazem Cd [Cardizem Cd -] 240 mg PO DAILY 06/22/16 Travoprost [Travatan Z] 1 drop OU HS 06/22/16 Zolpidem Tartrate [Ambien] 5 mg PO HS 06/22/16 Review of Systems - Review of Systems Constitutional: reports: Malaise, Weakness Eyes: reports: No Symptoms HENT: reports: No Symptoms Neck: reports: No Symptoms Cardiovascular: reports: Shortness of Breath Respiratory: reports: Exercise Intolerance, SOB on Exertion, Wheezing Gastrointestinal: reports: No Symptoms Genitourinary: reports: No Symptoms Breasts: reports: No Symptoms Reported Musculoskeletal: reports: No Symptoms Integumentary: reports: No Symptoms Neurological: reports: No Symptoms Endocrine: reports: No Symptoms Hematology/Lymphatic: reports: No Symptoms Psychiatric: reports: No Symptoms Physical Examination Vital Signs: Vital Signs Temperature 97.8 F 06/23/16 14:00 Pulse Rate 60 06/23/16 14:00 Respiratory Rate 20 06/23/16 14:00 Blood Pressure 125/50 06/23/16 14:00 O2 Sat by Pulse Oximetry (%) 95 06/22/16 20:00 Constitutional: Yes: Well Nourished, No Distress, Calm Eyes: Yes: WNL, Conjunctiva Clear, EOM Intact HENT: Yes: Atraumatic, Normocephalic Neck: Yes: WNL, Supple, Trachea Midline Cardiovascular: Yes: WNL, Regular Rate and Rhythm, Bradycardia Respiratory: Yes: Wheezes (right mid to base greater than left) Gastrointestinal: Yes: Normal Bowel Sounds, Soft Musculoskeletal: Yes: WNL Edema: No Peripheral Pulses WNL: Yes Integumentary: Yes: WNL Neurological: Yes: WNL, Alert, Oriented ...Motor Strength: WNL Psychiatric: Yes: WNL, Alert, Oriented Labs: CBC, BMP 06/23/16 05:40 06/23/16 05:40 Problem List - Problems (1) Atrial fibrillation with rapid ventricular response Assessment/Plan: patient with PPM rate currently controlled will discuss with Cardio ? inc in CCB / may not be able to tolerate BB / digoxin ?? Code(s): I48.91 - UNSPECIFIED ATRIAL FIBRILLATION (2) Generalized weakness Assessment/Plan: due to decompensation from Rapid AF Code(s): R53.1 - WEAKNESS (3) Renal insufficiency Assessment/Plan: acute renal failure -- dehydration component ? discuss with renal - trial of IV fluids and follow BUN/Cr renal U/S ordered may have to d/c NOAC due to decompensated GFR Code(s): N28.9 - DISORDER OF KIDNEY AND URETER, UNSPECIFIED (4) COPD (chronic obstructive pulmonary disease) Assessment/Plan: will resume atrovent inh q6 she states she uses nebulizer at home ? B-agonist? LABA? ( she "doesn't know") Former smoker / hx of Lung Ca will request Pulmonary follow up ?? need for O2 at home Code(s): J44.9 - CHRONIC OBSTRUCTIVE PULMONARY DISEASE, UNSPECIFIED (5) H/O: lung cancer Code(s): Z85.118 - PERSONAL HISTORY OF MALIGNANT NEOPLASM OF BRONCHUS AND LUNG (6) Hypertension Code(s): I10 - ESSENTIAL (PRIMARY) HYPERTENSION (7) Acute on chronic renal insufficiency Code(s): N28.9 - DISORDER OF KIDNEY AND URETER, UNSPECIFIED N18.9 - CHRONIC KIDNEY DISEASE, UNSPECIFIED
[2016-06-23 16:37] LABS: URINE APPEARANCE CLEAR; URINE BILIRUBIN NEGATIVE (NEGATIVE); URINE BLOOD NEGATIVE (NEGATIVE); URINE COLOR YELLOW; URINE GLUCOSE (UA) NEGATIVE (NEGATIVE); URINE KETONE NEGATIVE (NEGATIVE); URINE NITRITE NEGATIVE (NEGATIVE); URINE PROTEIN NEGATIVE (NEGATIVE); URINE UROBILINOGEN NEGATIVE E.U./dl (0.2-1.0)
[2016-06-23 16:52] LABS: URINE LEUK ESTERASE 3+ (NEGATIVE)
[2016-06-23] MEDS: IPRATROPIUM BR 0.02% 0.5 MG/2.5 ML VIAL.NEB. NEB SCH ×2 (17:25→23:37)
[2016-06-23 17:26] LABS: THYROID STIMULATING HORMONE 2.15 uIU/ml (0.358-3.74); TROPONIN I 0.16 ng/ml (0.00-0.05)
[2016-06-23 17:28] LABS: URINE MUCUS RARE; URINE RBC 3 /hpf (0-3); URINE WBC 37 /hpf (3-5)
[2016-06-23 22:43] LABS: SODIUM,RANDOM URINE 20 MMOL/L
[2016-06-23 23:11] LABS: CHLORIDE,RANDOM URINE < 10 MMOL/L
[2016-06-24] MEDS: IPRATROPIUM BR 0.02% 0.5 MG/2.5 ML VIAL.NEB. NEB SCH ×4 (06:36→23:11)
[2016-06-24 08:24] LABS: BASOPHIL 0.3 % (0-2.0); EOSINOPHIL 0.4 % (0-4.5); MCH 27.8 pg (25.7-33.7); MCHC 32.3 g/dl (32.0-36.0); MEAN CELL VOLUME 86.2 fl (80-96); NEUTROPHILS 84.1 % (42.8-82.8); PLATELET COUNT 136 K/MM3 (134-434); RDW 15.3 % (11.6-15.6); WHITE BLOOD COUNT 9.1 K/mm3 (4.0-10.0)
[2016-06-24 08:48] LABS: ALBUMIN 3.1 g/dl (3.4-5.0); CALCIUM 8.1 mg/dL (8.5-10.1)
[2016-06-24 08:52] LABS: BILIRUBIN,TOTAL 0.7 mg/dL (0.2-1.0); COCKROFT - GAULT 11.526; CREATININE 3.1 mg/dL (0.55-1.02); TOT PROT 6.4 g/dl (6.4-8.2)
[2016-06-24] MEDS: APIXABAN 2.5 MG TABLET PO SCH ×2 (09:14→21:47)
[2016-06-24] MEDS: METOPROLOL SUCCINATE 25 MG TAB.SR.24H (FP) PO SCH (09:14)
--- NOTE | 2016-06-24 09:32 | PN ---
Progress Note, Physician Chief Complaint: Cardiology for Sammy Complains of cough Tele: reviewed. A-paced with rare VPCs. - Current Medication List Current Medications: Active Medications Apixaban (Eliquis -) 2.5 mg PO BID [facility] Last Admin: 06/24/16 09:14 Dose: 2.5 mg Ipratropium [place] (Atrovent 0.02% Nebulizer -) 1 amp NEB QIDR [facility] Last Admin: 06/24/16 06:36 Dose: 1 amp Metoprolol Succinate (Toprol Xl -) 25 mg PO DAILY [facility] Last Admin: 06/24/16 09:14 Dose: 25 mg Zolpidem Tartrate (Ambien -) 5 mg PO HS PRN PRN Reason: INSOMNIA Last Admin: 06/23/16 22:18 Dose: 5 mg - Objective Vital Signs: Vital Signs Temperature 98 F 06/24/16 08:00 Pulse Rate 59 L 06/24/16 08:00 Respiratory Rate 23 06/24/16 08:00 Blood Pressure 126/51 06/24/16 08:00 O2 Sat by Pulse Oximetry (%) 94 L 06/23/16 20:55 Constitutional: Yes: No Distress Eyes: Yes: Conjunctiva Clear Cardiovascular: Yes: Regular Rate and Rhythm (paced) Respiratory: Yes: Other (rales at bases b/l) Gastrointestinal: Yes: Soft Edema: Yes Edema: LLE: 1+, RLE: 1+ Neurological: Yes: Alert, Oriented ...Motor Strength: WNL Labs: CBC, BMP 06/24/16 05:40 06/24/16 05:40 INR, PTT INR 1.97 (0.82-1.09) H 06/22/16 13:43 Laboratory Tests 06/24/16 06/24/16 06/24/16 05:40 05:40 05:40 WBC 9.1 D Hgb 10.3 L Hct 32.1 L Plt Count 136 Potassium 4.7 BUN 74 H Creatinine 3.1 H Creat Clearance w eGFR 14.28 B-Natriuretic Peptide 86500.23 H - ....Imaging EKG: Image Reviewed Assessment/Plan IMP: Chronic systolic CHF, severe LV dysfunction CKD PAF s/p PPM REC: CXR with worsened congestive changes- would give trial of diuretics and consult Nephrology. On Eliquis for PAF, dose adjusted for renal fxn. D/W Dr. 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 Since this is a real possibility, it would be reasonable to use Cardizem, if needed, if Toprol is felt to be causing wheezing.
--- NOTE | 2016-06-24 11:13 | CON.PULM ---
Consult Consult Specialty:: PULMONARY Referred by:: Dr. Vanessa Reason for Consultation:: shortness of breath - History of Present Illness Chief Complaint: shortness of breath History of Present Illness: 85yo female with h/o HTN, hypercholesterolemia, COPD, atrial fibrillation, h/o lung ca, h/o TIA who presents with worsening shortness of breath and palpitations. Denies any chest pain. No fevers, chills or sweats. + nonproductive cough without wheezing. Noted to be in rapid atrial fibrillation with VR in 160s, given IV lopressor and cardizem now with better rate control. Of note, echocardiogram performed showing severe LV systolic dysfunction which is markedly different from an echocardiogram done in Feb 2016 which showed normal LV function. 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 Cardio/Vascular: Yes: AFIB, HTN, Hyperlipdemia Pulmonary: Yes: Cancer (s/p chemo and resction), COPD Hepatobiliary: Yes: Cholelithiasis Renal/: Yes: Renal Failure (CkD IV), Renal Inusuff (see HPI) ...: No Musculoskeletal: Yes: Osteoarthritis - Past Surgical History Past Surgical History: Yes: Thoracotomy (right) - Alcohol/Substance Use Hx Alcohol Use: No History of Substance Use: reports: None - Smoking History Smoking history: Former smoker Have you smoked in the past 12 months: No Aproximately how many cigarettes per day: 0 If you are a former smoker, when did you quit?: 1994 - Social History History of Recent Travel: No Home Medications - Allergies Allergies/Adverse Reactions: Allergies Allergy/AdvReac Type Severity Reaction Status Date / Time Penicillins Allergy Verified 06/22/16 13:27 - Home Medications Home Medications: Ambulatory Orders Apixaban [Eliquis] 12.5 mg PO BID 06/22/16 Aspirin [ASA -] 81 mg PO DAILY 06/22/16 Brinzolamide [Azopt] 1 drop OU BID 06/22/16 Diltiazem Cd [Cardizem Cd -] 240 mg PO DAILY 06/22/16 Travoprost [Travatan Z] 1 drop OU HS 06/22/16 Zolpidem Tartrate [Ambien] 5 mg PO HS 06/22/16 Family Disease History - Family Disease History Other Family History: non-contributory Review of Systems - Review of Systems Constitutional: reports: Weakness. denies: Chills, Fever Eyes: denies: Recent Change in Vision HENT: denies: Nasal Congestion, Throat Pain Neck: denies: Stiffness, Tenderness Cardiovascular: reports: Palpitations, Shortness of Breath. denies: Chest Pain , Edema Respiratory: reports: Cough. denies: Hemoptysis, Wheezing Gastrointestinal: denies: Abdominal Pain, Nausea, Vomiting Genitourinary: denies: Dysuria, Hematuria Neurological: denies: Dizziness, Headache, Numbness Physical Exam Vital Sings: Vital Signs Temperature 98 F 06/24/16 08:00 Pulse Rate 59 L 06/24/16 08:00 Respiratory Rate 22 06/24/16 08:00 Blood Pressure 126/51 06/24/16 08:00 O2 Sat by Pulse Oximetry (%) 92 L 06/24/16 08:00 Constitutional: Yes: Calm Eyes: Yes: Conjunctiva Clear, EOM Intact HENT: Yes: Atraumatic, Normocephalic Neck: Yes: Supple, Trachea Midline Cardiovascular: Yes: Pulse Irregular, Murmur Respiratory: Yes: Diminished (decreased breath sounds at the bases) ...Clubbing: No Gastrointestinal: Yes: Normal Bowel Sounds, Soft. No: Tenderness Edema: No Neurological: Yes: Alert, Oriented Labs: CBC, BMP 06/24/16 05:40 06/24/16 05:40 Imaging - Results Chest X-ray: Report Reviewed, Image Reviewed (pulmonary vascular congestion, pleural effusions) Problem List - Problems (1) Acute on chronic systolic (congestive) heart failure Code(s): I50.23 - ACUTE ON CHRONIC SYSTOLIC (CONGESTIVE) HEART FAILURE (2) Atrial fibrillation with rapid ventricular response Code(s): I48.91 - UNSPECIFIED ATRIAL FIBRILLATION (3) COPD (chronic obstructive pulmonary disease) Code(s): J44.9 - CHRONIC OBSTRUCTIVE PULMONARY DISEASE, UNSPECIFIED (4) H/O: lung cancer Code(s): Z85.118 - PERSONAL HISTORY OF MALIGNANT NEOPLASM OF BRONCHUS AND LUNG (5) Hypertension Code(s): I10 - ESSENTIAL (PRIMARY) HYPERTENSION (6) CKD (chronic kidney disease) stage 4, GFR 15-29 ml/min Code(s): N18.4 - CHRONIC KIDNEY DISEASE, STAGE 4 (SEVERE) Assessment/Plan Atrial Fibrillation with RVR Acute on ?Chronic LV Systolic Heart Failure Pleural Effusions from above COPD Acute on CKD h/o Lung Ca - rate controlled with metoprolol - continue anticoagulation - lasix as needed - monitor urine output, creatinine - monitor CXR - O2 to keep SpO2 >90% - inhaled bronchodilators as needed - telemetry monitoring Thank you for this consult Mihai Montgomery MD
[2016-06-24] MEDS ORDERED: FUROSEMIDE 40 MG/4 ML INJECTABLE VIAL IVPB ONE (11:34)
--- NOTE | 2016-06-24 11:34 | PN ---
Progress Note, Physician History of Present Illness: Pt seen and examined at bedside. She is awake and alert. She does complain of shortness of breath. - Current Medication List Current Medications: Active Medications Apixaban (Eliquis -) 2.5 mg PO BID [facility] Last Admin: 06/24/16 09:14 Dose: 2.5 mg Ipratropium [place] (Atrovent 0.02% Nebulizer -) 1 amp NEB QIDR [facility] Last Admin: 06/24/16 06:36 Dose: 1 amp Metoprolol Succinate (Toprol Xl -) 25 mg PO DAILY [facility] Last Admin: 06/24/16 09:14 Dose: 25 mg Zolpidem Tartrate (Ambien -) 5 mg PO HS PRN PRN Reason: INSOMNIA Last Admin: 06/23/16 22:18 Dose: 5 mg - Objective Vital Signs: Vital Signs Temperature 98 F 06/24/16 08:00 Pulse Rate 59 L 06/24/16 08:00 Respiratory Rate 22 06/24/16 08:00 Blood Pressure 126/51 06/24/16 08:00 O2 Sat by Pulse Oximetry (%) 92 L 06/24/16 08:00 Constitutional: Yes: Calm Eyes: Yes: Conjunctiva Clear HENT: Yes: Atraumatic Cardiovascular: Yes: S1, S2 Respiratory: Yes: On Nasal O2, Rhonchi Gastrointestinal: Yes: Soft Genitourinary: Yes: WNL Musculoskeletal: Yes: WNL Edema: No Neurological: Yes: Oriented Psychiatric: Yes: Oriented Labs: CBC, BMP 06/24/16 05:40 06/24/16 05:40 INR, PTT INR 1.97 (0.82-1.09) H 06/22/16 13:43 - ....Imaging Chest X-ray: Report Reviewed Problem List - Problems (1) Acute on chronic systolic (congestive) heart failure Code(s): I50.23 - ACUTE ON CHRONIC SYSTOLIC (CONGESTIVE) HEART FAILURE (2) Atrial fibrillation Code(s): I48.91 - UNSPECIFIED ATRIAL FIBRILLATION (3) Atrial fibrillation with rapid ventricular response Code(s): I48.91 - UNSPECIFIED ATRIAL FIBRILLATION (4) Acute on chronic renal insufficiency Code(s): N28.9 - DISORDER OF KIDNEY AND URETER, UNSPECIFIED N18.9 - CHRONIC KIDNEY DISEASE, UNSPECIFIED (5) Hyperlipidemia Code(s): E78.5 - HYPERLIPIDEMIA, UNSPECIFIED Assessment/Plan Current Medications Generic Name Dose Route Start Last Admin Trade Name Freq PRN Reason Stop Dose Admin Apixaban 2.5 mg 06/23/16 10:00 06/24/16 09:14 Eliquis - PO 2.5 mg BID NAHED Administration Ipratropium [place] 1 amp 06/23/16 18:00 06/24/16 06:36 Atrovent 0.02% Nebulizer - NEB 1 amp QIDR NAHED Administration Metoprolol Succinate 25 mg 06/24/16 10:00 06/24/16 09:14 Toprol Xl - PO 25 mg DAILY NAHED Administration Zolpidem Tartrate 5 mg 06/22/16 23:37 06/23/16 22:18 Ambien - PO 5 mg HS PRN Administration INSOMNIA Laboratory Tests 06/24/16 05:40 B-Natriuretic Peptide 96104.23 H Impression 1. CKD with acute component 2. a-fib 3. hx TIA 4. hx lung cancer 5. HTN 6. hyperlipidemia 7. COPD 8. CHF Plan - follow up renal ultrasound - will give a dose of lasix - repeat labs in am - bnp is elevated - send ua with lytes - cxr worse - will send renal workup Dr Kathleen
--- NOTE | 2016-06-24 21:45 | PN ---
Progress Note (short form) - Note Progress Note: notes from Cardio / renal / pulm reviewed and appreciated sitting in bed comfortable states breathing better but still CAMEJO when going to bathroom Vital Signs Period Temp Pulse Resp BP Sys/Cardoza Pulse Ox Last 24 Hr 97.4 F-98 F 59-63 18-23 109-140/41-55 92 exam neck supple heart regular ( paced on telemetry) lungs decreased at bases / few rales bilat abd soft non tender ext no edema CBC, BMP 06/24/16 05:40 06/24/16 05:40 Active Medications Apixaban (Eliquis -) 2.5 mg PO BID [facility] Last Admin: 06/24/16 09:14 Dose: 2.5 mg Ipratropium [place] (Atrovent 0.02% Nebulizer -) 1 amp NEB QIDR [facility] Last Admin: 06/24/16 17:54 Dose: 1 amp Metoprolol Succinate (Toprol Xl -) 25 mg PO DAILY [facility] Last Admin: 06/24/16 09:14 Dose: 25 mg Zolpidem Tartrate (Ambien -) 5 mg PO HS PRN PRN Reason: INSOMNIA Last Admin: 06/23/16 22:18 Dose: 5 mg Problem List - Problems (1) Atrial fibrillation with rapid ventricular response Code(s): I48.91 - UNSPECIFIED ATRIAL FIBRILLATION (2) Generalized weakness Code(s): R53.1 - WEAKNESS (3) Renal insufficiency Code(s): N28.9 - DISORDER OF KIDNEY AND URETER, UNSPECIFIED (4) COPD (chronic obstructive pulmonary disease) Code(s): J44.9 - CHRONIC OBSTRUCTIVE PULMONARY DISEASE, UNSPECIFIED (5) H/O: lung cancer Code(s): Z85.118 - PERSONAL HISTORY OF MALIGNANT NEOPLASM OF BRONCHUS AND LUNG (6) Hypertension Code(s): I10 - ESSENTIAL (PRIMARY) HYPERTENSION (7) Acute on chronic renal insufficiency Code(s): N28.9 - DISORDER OF KIDNEY AND URETER, UNSPECIFIED N18.9 - CHRONIC KIDNEY DISEASE, UNSPECIFIED
[2016-06-24] MEDS: ZOLPIDEM TARTRATE 5 MG TABLET PO PRN (21:47)
[2016-06-25 02:33] LABS: URINE APPEARANCE CLEAR; URINE BILIRUBIN NEGATIVE (NEGATIVE); URINE COLOR STRAW; URINE GLUCOSE (UA) NEGATIVE (NEGATIVE); URINE KETONE NEGATIVE (NEGATIVE); URINE LEUK ESTERASE NEGATIVE (NEGATIVE); URINE NITRITE NEGATIVE (NEGATIVE); URINE PROTEIN NEGATIVE (NEGATIVE); URINE UROBILINOGEN NEGATIVE E.U./dl (0.2-1.0)
[2016-06-25 02:39] LABS: URINE BLOOD 1+ (NEGATIVE)
[2016-06-25 02:42] LABS: URINE HYALINE CAST 1 /lpf; URINE MUCUS RARE; URINE RBC <1 /hpf (0-3); URINE WBC <1 /hpf (3-5)
[2016-06-25] MEDS: IPRATROPIUM BR 0.02% 0.5 MG/2.5 ML VIAL.NEB. NEB SCH ×3 (06:13→17:30)
[2016-06-25 09:09] LABS: ALBUMIN 3.3 g/dl (3.4-5.0); BILIRUBIN,TOTAL 0.9 mg/dL (0.2-1.0); CALCIUM 8.1 mg/dL (8.5-10.1); COCKROFT - GAULT 12.767; CREATININE 2.8 mg/dL (0.55-1.02); TOT PROT 6.7 g/dl (6.4-8.2)
[2016-06-25] MEDS: METOPROLOL SUCCINATE 25 MG TAB.SR.24H (FP) PO SCH (09:17)
[2016-06-25] MEDS: APIXABAN 2.5 MG TABLET PO SCH ×2 (09:17→21:17)
--- NOTE | 2016-06-25 09:22 | PN ---
Progress Note, Physician Chief Complaint: feeling better today after lasix Creatinine also improved - Current Medication List Current Medications: Active Medications Apixaban (Eliquis -) 2.5 mg PO BID [facility] Last Admin: 06/25/16 09:17 Dose: 2.5 mg Ipratropium [place] (Atrovent 0.02% Nebulizer -) 1 amp NEB QIDR [facility] Last Admin: 06/25/16 06:13 Dose: 1 amp Metoprolol Succinate (Toprol Xl -) 25 mg PO DAILY [facility] Last Admin: 06/25/16 09:17 Dose: 25 mg Zolpidem Tartrate (Ambien -) 5 mg PO HS PRN PRN Reason: INSOMNIA Last Admin: 06/24/16 21:47 Dose: 5 mg - Objective Vital Signs: Vital Signs Temperature 98.7 F 06/25/16 08:02 Pulse Rate 97 H 06/25/16 08:02 Respiratory Rate 20 06/25/16 08:14 Blood Pressure 126/59 06/25/16 08:02 O2 Sat by Pulse Oximetry (%) 90 L 06/25/16 08:14 Constitutional: Yes: Calm Cardiovascular: Yes: Regular Rate and Rhythm Respiratory: Yes: Other (rales at bases) Gastrointestinal: Yes: Soft Edema: No Neurological: Yes: Alert, Oriented Labs: CBC, BMP 06/24/16 05:40 06/25/16 05:55 INR, PTT INR 1.97 (0.82-1.09) H 06/22/16 13:43 - ....Imaging EKG: Image Reviewed (TELE: NSR w/ IVCD, APCs, intermittent A pacing) Assessment/Plan IMP: Chronic systolic CHF, severe LV dysfunction CKD PAF s/p PPM REC: Clinically improved after dose of Lasix, would dose again today. On Eliquis for PAF, dose adjusted for renal fxn. D/W Dr. 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 Since this is a real possibility, it would be reasonable to use Cardizem, if needed, if Toprol is felt to be causing wheezing. She seems to be tolerating it well with no recurrence DUSTY.
[2016-06-25] MEDS ORDERED: FUROSEMIDE 40 MG/4 ML INJECTABLE VIAL IVPUSH ONE (09:30)
--- NOTE | 2016-06-25 09:52 | PN ---
Progress Note, Physician History of Present Illness: Renal f/u Pt feels better with less dyspnea on exertion Urinary bladder sonogram showed no significant PVR UA + Blood but no protein - Current Medication List Current Medications: Active Medications Apixaban (Eliquis -) 2.5 mg PO BID [facility] Last Admin: 06/25/16 09:17 Dose: 2.5 mg Ipratropium [place] (Atrovent 0.02% Nebulizer -) 1 amp NEB QIDR [facility] Last Admin: 06/25/16 06:13 Dose: 1 amp Metoprolol Succinate (Toprol Xl -) 25 mg PO DAILY [facility] Last Admin: 06/25/16 09:17 Dose: 25 mg Zolpidem Tartrate (Ambien -) 5 mg PO HS PRN PRN Reason: INSOMNIA Last Admin: 06/24/16 21:47 Dose: 5 mg - Objective Vital Signs: Vital Signs Temperature 98.7 F 06/25/16 08:02 Pulse Rate 97 H 06/25/16 08:02 Respiratory Rate 20 06/25/16 08:14 Blood Pressure 126/59 06/25/16 08:02 O2 Sat by Pulse Oximetry (%) 90 L 06/25/16 08:14 Constitutional: Yes: Calm Cardiovascular: Yes: S1, S2 Respiratory: Yes: Diminished (Decreased BS at posterior bases and rare crackles) Gastrointestinal: Yes: Soft. No: Tenderness, Rebound Edema: No Labs: CBC, BMP 06/24/16 05:40 06/25/16 05:55 INR, PTT INR 1.97 (0.82-1.09) H 06/22/16 13:43 Assessment/Plan Impression 1. CKD with acute component 2. A-fib 3. hx TIA 4. hx lung cancer 5. HTN 6. hyperlipidemia 7. COPD 8. CHF Plan Renal US reodered Additional lasix ordered for today Repeat labs in am Dr Culver
--- NOTE | 2016-06-25 12:11 | PN ---
Progress Note (short form) - Note Progress Note: better this am / less CAMEJO was given dose of lasix denies CP / SOB/ no wheezing appreciated Vital Signs Period Temp Pulse Resp BP Sys/Cardoza Pulse Ox Last 24 Hr 97.4 F-98.7 F 61-97 18-22 119-140/49-76 90-97 neck supple heart reg lungs grossly clear / no wheezing abd soft non tender ext no edema CBC, BMP 06/24/16 05:40 06/25/16 05:55 telemetry mostly paced till late last night early this am multiple burst of SVT / stated about 8 am now seem more frequent Intake & Output 06/22/16 06/23/16 06/24/16 06/25/16 23:59 23:59 23:59 23:59 Intake Total 240 610 250 Output Total 550 Balance 240 610 -300 Weight 120 lb 130 lb 6.4 oz 121 lb 6.4 oz Active Medications Apixaban (Eliquis -) 2.5 mg PO BID [facility] Last Admin: 06/25/16 09:17 Dose: 2.5 mg Ipratropium [place] (Atrovent 0.02% Nebulizer -) 1 amp NEB QIDR [facility] Last Admin: 06/25/16 11:16 Dose: 1 amp Metoprolol Succinate (Toprol Xl -) 25 mg PO DAILY [facility] Last Admin: 06/25/16 09:17 Dose: 25 mg Zolpidem Tartrate (Ambien -) 5 mg PO HS PRN PRN Reason: INSOMNIA Last Admin: 06/24/16 21:47 Dose: 5 mg # cardiac arrhythmia . A fib / SVT rate control currently on toprol 25 --but breaking through now that Dig and CCB has been cleared ( due to poor renal function ) will likely see more SVT / arrhythmia will increase dose to 50 q day and continue telemetry eliquis for A/C adjusted for renal dose # CKD with accute renal failure improving baseline was 2.0 Cr # CHF responding to lasix Inc BMP also due to extended SVT # HTN will require additional meds for control # COPD atrovent for Pulm avoid B-agoinst due to tachycardia tolerating BB # Hx Lung Ca # HLD # TIA Problem List - Problems (1) Atrial fibrillation with rapid ventricular response Code(s): I48.91 - UNSPECIFIED ATRIAL FIBRILLATION (2) Generalized weakness Code(s): R53.1 - WEAKNESS (3) Renal insufficiency Code(s): N28.9 - DISORDER OF KIDNEY AND URETER, UNSPECIFIED (4) COPD (chronic obstructive pulmonary disease) Code(s): J44.9 - CHRONIC OBSTRUCTIVE PULMONARY DISEASE, UNSPECIFIED (5) H/O: lung cancer Code(s): Z85.118 - PERSONAL HISTORY OF MALIGNANT NEOPLASM OF BRONCHUS AND LUNG (6) Hypertension Code(s): I10 - ESSENTIAL (PRIMARY) HYPERTENSION (7) Acute on chronic renal insufficiency Code(s): N28.9 - DISORDER OF KIDNEY AND URETER, UNSPECIFIED N18.9 - CHRONIC KIDNEY DISEASE, UNSPECIFIED
[2016-06-25] MEDS ORDERED: METOPROLOL SUCCINATE 25 MG TAB.SR.24H (FP) PO ONE (13:00)
--- NOTE | 2016-06-25 13:40 | PN ---
Progress Note (short form) - Note Progress Note: PULMONARY Denies shortness of breath, chest pain or palpitations. CXR this AM with mild improvement in congestion. Last Vital Signs Temp Pulse Resp BP Pulse Ox 98.7 F 68 20 126/59 97 06/25/16 08:02 06/25/16 11:16 06/25/16 08:14 06/25/16 08:02 06/25/16 11:16 Gen: NAD at rest Heart: RRR Lung: decreased breath sounds at the bases Abd: soft, nontender Ext: no edema CBC, BMP 06/24/16 05:40 06/25/16 05:55 Active Medications Apixaban (Eliquis -) 2.5 mg PO BID [facility] Last Admin: 06/25/16 09:17 Dose: 2.5 mg Ipratropium [place] (Atrovent 0.02% Nebulizer -) 1 amp NEB QIDR [facility] Last Admin: 06/25/16 11:16 Dose: 1 amp Metoprolol Succinate (Toprol Xl -) 25 mg PO DAILY [facility] Last Admin: 06/25/16 09:17 Dose: 25 mg Metoprolol Succinate (Toprol Xl -) 50 mg PO DAILY [facility] Zolpidem Tartrate (Ambien -) 5 mg PO HS PRN PRN Reason: INSOMNIA Last Admin: 06/24/16 21:47 Dose: 5 mg A/P Atrial Fibrillation with RVR now controlled Acute on ?Chronic LV Systolic Heart Failure Pleural Effusions from above COPD Acute on CKD h/o Lung Ca - rate controlled with metoprolol - continue anticoagulation - lasix as needed - monitor urine output, creatinine - monitor CXR - O2 to keep SpO2 >90% - inhaled bronchodilators as needed - telemetry monitoring Problem List - Problems (1) Acute on chronic systolic (congestive) heart failure Code(s): I50.23 - ACUTE ON CHRONIC SYSTOLIC (CONGESTIVE) HEART FAILURE (2) Atrial fibrillation with rapid ventricular response Code(s): I48.91 - UNSPECIFIED ATRIAL FIBRILLATION (3) COPD (chronic obstructive pulmonary disease) Code(s): J44.9 - CHRONIC OBSTRUCTIVE PULMONARY DISEASE, UNSPECIFIED (4) H/O: lung cancer Code(s): Z85.118 - PERSONAL HISTORY OF MALIGNANT NEOPLASM OF BRONCHUS AND LUNG (5) Hypertension Code(s): I10 - ESSENTIAL (PRIMARY) HYPERTENSION (6) CKD (chronic kidney disease) stage 4, GFR 15-29 ml/min Code(s): N18.4 - CHRONIC KIDNEY DISEASE, STAGE 4 (SEVERE)
[2016-06-25] MEDS: ZOLPIDEM TARTRATE 5 MG TABLET PO PRN (21:17)
[2016-06-26] MEDS: IPRATROPIUM BR 0.02% 0.5 MG/2.5 ML VIAL.NEB. NEB SCH ×4 (06:45→18:37)
[2016-06-26 07:24] LABS: CALCIUM 8.1 mg/dL (8.5-10.1); COCKROFT - GAULT 13.6595; CREATININE 2.6 mg/dL (0.55-1.02)
[2016-06-26] MEDS: METOPROLOL SUCCINATE 50 MG TAB.SR.24H (FP) PO SCH (09:39)
[2016-06-26] MEDS: APIXABAN 2.5 MG TABLET PO SCH ×2 (09:39→21:31)
--- NOTE | 2016-06-26 12:08 | PN ---
Progress Note, Physician History of Present Illness: pulmonary alert,comfortable,nad,-cp,-sob - Current Medication List Current Medications: Active Medications Apixaban (Eliquis -) 2.5 mg PO BID [facility] Last Admin: 06/26/16 09:39 Dose: 2.5 mg Ipratropium [place] (Atrovent 0.02% Nebulizer -) 1 amp NEB QIDR [facility] Last Admin: 06/26/16 11:58 Dose: 1 amp Metoprolol Succinate (Toprol Xl -) 50 mg PO DAILY [facility] Last Admin: 06/26/16 09:39 Dose: 50 mg - Objective Vital Signs: Vital Signs Temperature 98.1 F 06/26/16 08:10 Pulse Rate 92 H 06/26/16 08:10 Respiratory Rate 20 06/26/16 08:10 Blood Pressure 136/66 06/26/16 08:10 O2 Sat by Pulse Oximetry (%) 97 06/26/16 08:00 Constitutional: Yes: Well Nourished, Calm Eyes: Yes: WNL HENT: Yes: WNL Cardiovascular: Yes: Pulse Irregular, S1, S2 Respiratory: Yes: Diminished Gastrointestinal: Yes: Normal Bowel Sounds, Soft Extremities: Yes: WNL Edema: No Labs: CBC, BMP 06/24/16 05:40 06/26/16 05:35 INR, PTT INR 1.97 (0.82-1.09) H 06/22/16 13:43 Assessment/Plan A/P Atrial Fibrillation with RVR controlled Acute on ?Chronic LV Systolic Heart Failure Pleural Effusions from above COPD Acute on CKD h/o Lung Ca - rate controlled - anticoagulation - lasix prn - monitor urine output, creatinine - monitor CXR - O2 to keep SpO2 >90% - inhaled bronchodilators as needed DR JACOBO Problem List - Problems (1) Acute on chronic systolic (congestive) heart failure Code(s): I50.23 - ACUTE ON CHRONIC SYSTOLIC (CONGESTIVE) HEART FAILURE (2) Atrial fibrillation with rapid ventricular response Code(s): I48.91 - UNSPECIFIED ATRIAL FIBRILLATION (3) COPD (chronic obstructive pulmonary disease) Code(s): J44.9 - CHRONIC OBSTRUCTIVE PULMONARY DISEASE, UNSPECIFIED (4) H/O: lung cancer Code(s): Z85.118 - PERSONAL HISTORY OF MALIGNANT NEOPLASM OF BRONCHUS AND LUNG (5) Hypertension Code(s): I10 - ESSENTIAL (PRIMARY) HYPERTENSION (6) CKD (chronic kidney disease) stage 4, GFR 15-29 ml/min Code(s): N18.4 - CHRONIC KIDNEY DISEASE, STAGE 4 (SEVERE)
--- NOTE | 2016-06-26 12:15 | EKG ---
Test Reason : Blood Pressure : / mmHG Vent. Rate : 061 BPM Atrial Rate : 061 BPM P-R Int : 148 ms QRS Dur : 126 ms QT Int : 424 ms P-R-T Axes : 000 013 054 degrees QTc Int : 426 ms DUAL CHAMBER PACEMAKER ABNORMAL ECG WHEN COMPARED WITH ECG OF 23-JUN-2016 13:40, NO SIGNIFICANT CHANGE WAS FOUND Confirmed by PAUL FAUSTIN MD ([id number]) on 06/26/2016 12:15:02 PM Referred By: Val ROLAND Confirmed By:PAUL FAUSTIN MD
--- NOTE | 2016-06-26 12:55 | EKG ---
Test Reason : Blood Pressure : / mmHG Vent. Rate : 060 BPM Atrial Rate : 060 BPM P-R Int : 204 ms QRS Dur : 128 ms QT Int : 442 ms P-R-T Axes : 025 014 079 degrees QTc Int : 442 ms Atrial-paced rhythm LEFT BUNDLE BRANCH BLOCK ABNORMAL ECG WHEN COMPARED WITH ECG OF 22-JUN-2016 13:43, ELECTRONIC ATRIAL PACEMAKER HAS REPLACED WIDE QRS TACHYCARDIA VENT. RATE HAS DECREASED BY 99 BPM Confirmed by PAUL FAUSTIN MD ([id number]) on 06/26/2016 12:55:41 PM Referred By: HAI PIERCE Confirmed By:PAUL FAUSTIN MD
--- NOTE | 2016-06-26 13:21 | PN ---
Progress Note, Physician History of Present Illness: 85 yr old white woman with PMHx lung CA, AF, COPD, HTN, now admitted with shortness of breath; she was found to be in AF with RVR. Surgical history: s/p PPM ([facility]; OR [facility] 02/[address] Simone Melvin) lung resection 2003 colostomy 2016 Medical history: Lung CA AF HTN COPD ?sleep apnea hyperlipidemia s/p TIA glaucoma - Current Medication List Current Medications: Active Medications Apixaban (Eliquis -) 2.5 mg PO BID [facility] Last Admin: 06/26/16 09:39 Dose: 2.5 mg Ipratropium [place] (Atrovent 0.02% Nebulizer -) 1 amp NEB QIDR [facility] Last Admin: 06/26/16 11:58 Dose: 1 amp Metoprolol Succinate (Toprol Xl -) 50 mg PO DAILY [facility] Last Admin: 06/26/16 09:39 Dose: 50 mg - Objective Vital Signs: Vital Signs Temperature 98.1 F 06/26/16 08:10 Pulse Rate 92 H 06/26/16 08:10 Respiratory Rate 20 06/26/16 08:10 Blood Pressure 136/66 06/26/16 08:10 O2 Sat by Pulse Oximetry (%) 97 06/26/16 08:00 Eyes: Yes: WNL, Conjunctiva Clear, EOM Intact HENT: Yes: WNL, Atraumatic, Normocephalic Neck: Yes: WNL, Supple, Trachea Midline Cardiovascular: Yes: WNL, Regular Rate and Rhythm Respiratory: Yes: WNL, Regular, Diminished Gastrointestinal: Yes: WNL, Normal Bowel Sounds Genitourinary: Yes: WNL Musculoskeletal: Yes: WNL Extremities: Yes: WNL Edema: No Integumentary: Yes: WNL Neurological: Yes: WNL, Alert, Oriented ...Motor Strength: WNL Psychiatric: Yes: WNL Labs: CBC, BMP 06/24/16 05:40 06/26/16 05:35 INR, PTT INR 1.97 (0.82-1.09) H 06/22/16 13:43 Assessment/Plan imp; s/p PPM ([facility]; OR [facility] 02/[address] Simone Melvin) lung resection 2003 colostomy 2016 lung CA AF HTN COPD ?sleep apnea hyperlipidemia s/p TIA glaucoma episodes of af with rvr aberrant conduction due to baseline LBBB off cardizem and dig new severely reduced systolic function. Plan cont telemetry increase metoprolol as tolerated
[2016-06-26] MEDS ORDERED: FUROSEMIDE 40 MG TABLET (FP) PO ONE (16:17)
--- NOTE | 2016-06-26 16:17 | PN ---
Progress Note, Physician History of Present Illness: Pt seen and examined at bedside. She is awake and alert. She says she feels better. She dies shortness of breath or palpitations. - Current Medication List Current Medications: Active Medications Apixaban (Eliquis -) 2.5 mg PO BID [facility] Last Admin: 06/26/16 09:39 Dose: 2.5 mg Ipratropium [place] (Atrovent 0.02% Nebulizer -) 1 amp NEB QIDR [facility] Last Admin: 06/26/16 11:58 Dose: 1 amp Metoprolol Succinate (Toprol Xl -) 50 mg PO DAILY [facility] Last Admin: 06/26/16 09:39 Dose: 50 mg - Objective Vital Signs: Vital Signs Temperature 98.1 F 06/26/16 13:20 Pulse Rate 96 H 06/26/16 13:31 Respiratory Rate 22 06/26/16 13:20 Blood Pressure 136/74 06/26/16 13:20 O2 Sat by Pulse Oximetry (%) 91 L 06/26/16 13:31 Constitutional: Yes: Calm Eyes: Yes: Conjunctiva Clear HENT: Yes: Atraumatic Neck: Yes: Supple Cardiovascular: Yes: Pulse Irregular, S1, S2 Respiratory: Yes: CTA Bilaterally, On Nasal O2 Gastrointestinal: Yes: Soft Genitourinary: Yes: WNL Musculoskeletal: Yes: WNL Edema: No Neurological: Yes: Oriented Psychiatric: Yes: Oriented Labs: CBC, BMP 06/24/16 05:40 06/26/16 05:35 INR, PTT INR 1.97 (0.82-1.09) H 06/22/16 13:43 - ....Imaging Ultrasound: Report Reviewed Problem List - Problems (1) Acute on chronic systolic (congestive) heart failure Code(s): I50.23 - ACUTE ON CHRONIC SYSTOLIC (CONGESTIVE) HEART FAILURE (2) Atrial fibrillation Code(s): I48.91 - UNSPECIFIED ATRIAL FIBRILLATION (3) Atrial fibrillation with rapid ventricular response Code(s): I48.91 - UNSPECIFIED ATRIAL FIBRILLATION (4) Acute on chronic renal insufficiency Code(s): N28.9 - DISORDER OF KIDNEY AND URETER, UNSPECIFIED N18.9 - CHRONIC KIDNEY DISEASE, UNSPECIFIED (5) Hyperlipidemia Code(s): E78.5 - HYPERLIPIDEMIA, UNSPECIFIED Assessment/Plan Current Medications Generic Name Dose Route Start Last Admin Trade Name Freq PRN Reason Stop Dose Admin Apixaban 2.5 mg 06/23/16 10:00 06/26/16 09:39 Eliquis - PO 2.5 mg BID [facility] Administration Ipratropium [place] 1 amp 06/23/16 18:00 06/26/16 11:58 Atrovent 0.02% Nebulizer - NEB 1 amp QIDR [facility] Administration Metoprolol Succinate 50 mg 06/26/16 10:00 06/26/16 09:39 Toprol Xl - PO 50 mg DAILY [facility] Administration Laboratory Tests 06/24/16 05:40 JOSE Screen Pending c-ANCA Pending Proteinase 3 (PR3) Pending p-ANCA Pending Atypical p-ANCA Pending Myeloperoxidase Ab Pending Impression 1. CKD with acute component 2. a-fib 3. hx TIA 4. hx lung cancer 5. HTN 6. hyperlipidemia 7. COPD 8. CHF Plan - renal function is improving - cont with lasix, will transition to PO - repeat labs in am - renal ultrasound reviewed - cardio input appreciated - renal workup is in progress Dr Kathleen
[2016-06-27] MEDS: IPRATROPIUM BR 0.02% 0.5 MG/2.5 ML VIAL.NEB. NEB SCH ×5 (00:04→23:19)
[2016-06-27] MEDS: ZOLPIDEM TARTRATE 5 MG TABLET PO PRN ×2 (00:05→21:43)
[2016-06-27 07:33] LABS: ALBUMIN 3.2 g/dl (3.4-5.0); BILIRUBIN,TOTAL 0.9 mg/dL (0.2-1.0); CALCIUM 8.3 mg/dL (8.5-10.1); COCKROFT - GAULT 14.195; CREATININE 2.5 mg/dL (0.55-1.02); TOT PROT 7.2 g/dl (6.4-8.2)
--- NOTE | 2016-06-27 08:24 | PN ---
Progress Note (short form) - Note Progress Note: breathing better states walking in room is better -- OOB to bedside commode Vital Signs Period Temp Pulse Resp BP Sys/Cardoza Pulse Ox Last 24 Hr 97.5 F-98.6 F 90-96 20-22 115-136/66-74 91-93 exam neck supple heart regular lungs clear bilat abd soft ext no edema CBC, BMP 06/24/16 05:40 # cardiac arrhythmia . A fib / SVT rate control currently on toprol 50 --but breaking through eliquis for A/C adjusted for renal dose # CKD with accute renal failure improving baseline was 2.0 Cr .. today 2.6 # CHF responding to lasix Inc BMP also due to extended SVT # HTN # COPD atrovent for Pulm avoid B-agoinst due to tachycardia tolerating BB # Hx Lung Ca # HLD # TIA Problem List - Problems (1) Atrial fibrillation with rapid ventricular response Code(s): I48.91 - UNSPECIFIED ATRIAL FIBRILLATION (2) Generalized weakness Code(s): R53.1 - WEAKNESS (3) Renal insufficiency Code(s): N28.9 - DISORDER OF KIDNEY AND URETER, UNSPECIFIED (4) COPD (chronic obstructive pulmonary disease) Code(s): J44.9 - CHRONIC OBSTRUCTIVE PULMONARY DISEASE, UNSPECIFIED (5) H/O: lung cancer Code(s): Z85.118 - PERSONAL HISTORY OF MALIGNANT NEOPLASM OF BRONCHUS AND LUNG (6) Hypertension Code(s): I10 - ESSENTIAL (PRIMARY) HYPERTENSION (7) Acute on chronic renal insufficiency Code(s): N28.9 - DISORDER OF KIDNEY AND URETER, UNSPECIFIED N18.9 - CHRONIC KIDNEY DISEASE, UNSPECIFIED
[2016-06-27] MEDS: METOPROLOL SUCCINATE 50 MG TAB.SR.24H (FP) PO SCH (09:07)
[2016-06-27] MEDS: APIXABAN 2.5 MG TABLET PO SCH ×2 (09:07→21:43)
--- NOTE | 2016-06-27 09:34 | PN ---
Progress Note (short form) - Note Progress Note: breathing better / denies CP / SOB / palpitations Vital Signs Period Temp Pulse Resp BP Sys/Cardoza Pulse Ox Last 24 Hr 97.5 F-98.6 F 90-96 20-22 115-136/66-74 91-93 neck supple heart reg lungs grossly clear mild scattered wheezing right mid field / clear with coughing good air movement abd soft non tender ext no edema CBC, BMP 06/24/16 05:40 06/27/16 05:35 Active Medications Apixaban (Eliquis -) 2.5 mg PO BID [facility] Last Admin: 06/27/16 09:07 Dose: 2.5 mg Ipratropium [place] (Atrovent 0.02% Nebulizer -) 1 amp NEB QIDR [facility] Last Admin: 06/27/16 06:23 Dose: 1 amp Metoprolol Succinate (Toprol Xl -) 50 mg PO DAILY [facility] Last Admin: 06/27/16 09:07 Dose: 50 mg Zolpidem Tartrate (Ambien -) 5 mg PO HS PRN PRN Reason: INSOMNIA Last Admin: 06/27/16 00:05 Dose: 5 mg telemetry sinus rhythm no significant ectopy # cardiac arrhythmia . A fib / SVT rate control currently on toprol 50 --no break through no COPD exacerbation eliquis for A/C adjusted for renal dose # CKD with accute renal failure improving baseline was 2.0 Cr .. today 2.5 # CHF responding to lasix change to PO Inc BMP also due to extended SVT # HTN # COPD atrovent for Pulm avoid B-agoinst due to tachycardia tolerating BB ?? requirement for O2 at home ? PT evaluation for activity / ADLs # Hx Lung Ca # HLD # TIA Problem List - Problems (1) Atrial fibrillation with rapid ventricular response Code(s): I48.91 - UNSPECIFIED ATRIAL FIBRILLATION (2) Generalized weakness Code(s): R53.1 - WEAKNESS (3) Renal insufficiency Code(s): N28.9 - DISORDER OF KIDNEY AND URETER, UNSPECIFIED (4) COPD (chronic obstructive pulmonary disease) Code(s): J44.9 - CHRONIC OBSTRUCTIVE PULMONARY DISEASE, UNSPECIFIED (5) H/O: lung cancer Code(s): Z85.118 - PERSONAL HISTORY OF MALIGNANT NEOPLASM OF BRONCHUS AND LUNG (6) Hypertension Code(s): I10 - ESSENTIAL (PRIMARY) HYPERTENSION (7) Acute on chronic renal insufficiency Code(s): N28.9 - DISORDER OF KIDNEY AND URETER, UNSPECIFIED N18.9 - CHRONIC KIDNEY DISEASE, UNSPECIFIED
--- NOTE | 2016-06-27 10:53 | PN ---
Progress Note, Physician History of Present Illness: pulmonary alert,oob-chair,comfortable,-sob - Current Medication List Current Medications: Active Medications Apixaban (Eliquis -) 2.5 mg PO BID [facility] Last Admin: 06/27/16 09:07 Dose: 2.5 mg Ipratropium [place] (Atrovent 0.02% Nebulizer -) 1 amp NEB QIDR [facility] Last Admin: 06/27/16 06:23 Dose: 1 amp Metoprolol Succinate (Toprol Xl -) 50 mg PO DAILY [facility] Last Admin: 06/27/16 09:07 Dose: 50 mg Zolpidem Tartrate (Ambien -) 5 mg PO HS PRN PRN Reason: INSOMNIA Last Admin: 06/27/16 00:05 Dose: 5 mg - Objective Vital Signs: Vital Signs Temperature 98.1 F 06/27/16 08:09 Pulse Rate 93 H 06/27/16 08:09 Respiratory Rate 20 06/27/16 08:09 Blood Pressure 115/67 06/27/16 08:09 O2 Sat by Pulse Oximetry (%) 93 L 06/26/16 21:00 Constitutional: Yes: Well Nourished, Calm Eyes: Yes: WNL HENT: Yes: WNL Neck: Yes: WNL Cardiovascular: Yes: Pulse Irregular, S1, S2 Respiratory: Yes: CTA Bilaterally Gastrointestinal: Yes: WNL Extremities: Yes: WNL Edema: No Labs: CBC, BMP 06/24/16 05:40 06/27/16 05:35 INR, PTT INR 1.97 (0.82-1.09) H 06/22/16 13:43 - ....Imaging Chest X-ray: Report Reviewed Assessment/Plan A/P Atrial Fibrillation with RVR controlled Acute on ?Chronic LV Systolic Heart Failure Pleural Effusions from above COPD Acute on CKD h/o Lung Ca - rate controlled - anticoagulation - lasix prn - monitor urine output, creatinine - monitor CXR - O2 to keep SpO2 >90% - inhaled bronchodilators as needed DR JACOBO Problem List - Problems (1) Acute on chronic systolic (congestive) heart failure Code(s): I50.23 - ACUTE ON CHRONIC SYSTOLIC (CONGESTIVE) HEART FAILURE (2) Atrial fibrillation with rapid ventricular response Code(s): I48.91 - UNSPECIFIED ATRIAL FIBRILLATION (3) COPD (chronic obstructive pulmonary disease) Code(s): J44.9 - CHRONIC OBSTRUCTIVE PULMONARY DISEASE, UNSPECIFIED (4) H/O: lung cancer Code(s): Z85.118 - PERSONAL HISTORY OF MALIGNANT NEOPLASM OF BRONCHUS AND LUNG (5) Hypertension Code(s): I10 - ESSENTIAL (PRIMARY) HYPERTENSION (6) CKD (chronic kidney disease) stage 4, GFR 15-29 ml/min Code(s): N18.4 - CHRONIC KIDNEY DISEASE, STAGE 4 (SEVERE)
--- NOTE | 2016-06-27 13:32 | PN ---
Progress Note, Physician Chief Complaint: Pt A&Ox3; no chest pain, palpitations, or dyspnea. History of Present Illness: 85 yr old white woman with PMHx lung CA, AF, PSVT, s/p PPM ([employer]) for prior "pauses", COPD, HTN, now admitted with shortness of breath; she was found to be tachycardia (SVT). - Current Medication List Current Medications: Active Medications Apixaban (Eliquis -) 2.5 mg PO BID [facility] Last Admin: 06/27/16 09:07 Dose: 2.5 mg Ipratropium [place] (Atrovent 0.02% Nebulizer -) 1 amp NEB QIDR [facility] Last Admin: 06/27/16 12:00 Dose: 1 amp Metoprolol Succinate (Toprol Xl -) 50 mg PO DAILY [facility] Last Admin: 06/27/16 09:07 Dose: 50 mg Zolpidem Tartrate (Ambien -) 5 mg PO HS PRN PRN Reason: INSOMNIA Last Admin: 06/27/16 00:05 Dose: 5 mg - Objective Vital Signs: Vital Signs Temperature 98.1 F 06/27/16 08:09 Pulse Rate 93 H 06/27/16 12:02 Respiratory Rate 20 06/27/16 08:09 Blood Pressure 115/67 06/27/16 08:09 O2 Sat by Pulse Oximetry (%) 96 06/27/16 12:02 Constitutional: Yes: Calm Eyes: Yes: WNL HENT: Yes: WNL Neck: Yes: WNL Cardiovascular: Yes: S1 (split), S2 (split) Respiratory: Yes: Regular Gastrointestinal: Yes: Soft ...Rectal Exam: Yes: Deferred Genitourinary: No: Anuria Breast(s): Yes: WNL Musculoskeletal: Yes: Muscle Weakness Extremities: Yes: Cool Edema: No Peripheral Pulses WNL: Yes Integumentary: Yes: WNL Neurological: Yes: Weakness Psychiatric: Yes: Alert, Oriented Labs: CBC, BMP 06/24/16 05:40 06/27/16 05:35 INR, PTT INR 1.97 (0.82-1.09) H 06/22/16 13:43 Abnormal Lab Results 06/27/16 05:35 BUN 56 H Creatinine 2.5 H Calcium 8.3 L Albumin 3.2 L - ....Imaging Other: Other (telemetry: atrial pacing; LBBB) Problem List - Problems (1) Atrial fibrillation Assessment/Plan: Frequent episodes of PSVT , at times as long as three hours, over the past few months on PPM interrogation. Now in sinus rhythm; periods of atrial pacing. ECHO: severely reduced LVEF (a dramatic change from the normal LVEF noted 2016). Plan: On metoprolol ER, with good rate control. Plan for repeat ECHO for LVEF as outpatient after several weeks on beta blockers. If LVEF remains low, would try to add other agents (eg ACEI or ARB, and spironolactone, if BUN/Cr and electrolytes improve; or else hydralazine+ nitrate). Continue apixaban for anticoagulation. Code(s): I48.91 - UNSPECIFIED ATRIAL FIBRILLATION (2) COPD (chronic obstructive pulmonary disease) Assessment/Plan: f/u with cashier credit. ?Pt was found to be in need of home O2 on last hospital visit. Code(s): J44.9 - CHRONIC OBSTRUCTIVE PULMONARY DISEASE, UNSPECIFIED (3) H/O: lung cancer Code(s): Z85.118 - PERSONAL HISTORY OF MALIGNANT NEOPLASM OF BRONCHUS AND LUNG (4) Hypertension Code(s): I10 - ESSENTIAL (PRIMARY) HYPERTENSION (5) Renal insufficiency Assessment/Plan: Avoid dehydration; f/u BUN/Cr. 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 Code(s): N28.9 - DISORDER OF KIDNEY AND URETER, UNSPECIFIED (6) Acute on chronic systolic (congestive) heart failure Assessment/Plan: (Please see under "atrial fibrillation"). Keep K 4-4.5, Mg 2-2.3. TSH WNL. Code(s): I50.23 - ACUTE ON CHRONIC SYSTOLIC (CONGESTIVE) HEART FAILURE
[2016-06-27] MEDS ORDERED: FUROSEMIDE 40 MG TABLET (FP) PO ONE (15:23)
--- NOTE | 2016-06-27 15:23 | PN ---
Progress Note, Physician History of Present Illness: Pt seen and examined at bedside. She is awake and alert. She feels that her breathing is improved. - Current Medication List Current Medications: Active Medications Apixaban (Eliquis -) 2.5 mg PO BID [facility] Last Admin: 06/27/16 09:07 Dose: 2.5 mg Ipratropium [place] (Atrovent 0.02% Nebulizer -) 1 amp NEB QIDR [facility] Last Admin: 06/27/16 12:00 Dose: 1 amp Metoprolol Succinate (Toprol Xl -) 50 mg PO DAILY [facility] Last Admin: 06/27/16 09:07 Dose: 50 mg Zolpidem Tartrate (Ambien -) 5 mg PO HS PRN PRN Reason: INSOMNIA Last Admin: 06/27/16 00:05 Dose: 5 mg - Objective Vital Signs: Vital Signs Temperature 98.1 F 06/27/16 08:09 Pulse Rate 93 H 06/27/16 12:02 Respiratory Rate 20 06/27/16 08:09 Blood Pressure 115/67 06/27/16 08:09 O2 Sat by Pulse Oximetry (%) 96 06/27/16 12:02 Constitutional: Yes: Calm Eyes: Yes: Conjunctiva Clear HENT: Yes: Atraumatic Neck: Yes: Supple Cardiovascular: Yes: Pulse Irregular, S1, S2 Respiratory: Yes: CTA Bilaterally, On Nasal O2 Gastrointestinal: Yes: Soft Genitourinary: Yes: WNL Musculoskeletal: Yes: WNL Edema: No Neurological: Yes: Oriented Psychiatric: Yes: Oriented Labs: CBC, BMP 06/24/16 05:40 06/27/16 05:35 INR, PTT INR 1.97 (0.82-1.09) H 06/22/16 13:43 Problem List - Problems (1) Acute on chronic systolic (congestive) heart failure Code(s): I50.23 - ACUTE ON CHRONIC SYSTOLIC (CONGESTIVE) HEART FAILURE (2) Atrial fibrillation Code(s): I48.91 - UNSPECIFIED ATRIAL FIBRILLATION (3) Atrial fibrillation with rapid ventricular response Code(s): I48.91 - UNSPECIFIED ATRIAL FIBRILLATION (4) Acute on chronic renal insufficiency Code(s): N28.9 - DISORDER OF KIDNEY AND URETER, UNSPECIFIED N18.9 - CHRONIC KIDNEY DISEASE, UNSPECIFIED (5) Hyperlipidemia Code(s): E78.5 - HYPERLIPIDEMIA, UNSPECIFIED Assessment/Plan Current Medications Generic Name Dose Route Start Last Admin Trade Name Freq PRN Reason Stop Dose Admin Apixaban 2.5 mg 06/23/16 10:00 06/27/16 09:07 Eliquis - PO 2.5 mg BID NAHED Administration Ipratropium [place] 1 amp 06/23/16 18:00 06/27/16 12:00 Atrovent 0.02% Nebulizer - NEB 1 amp QIDR NAHED Administration Metoprolol Succinate 50 mg 06/26/16 10:00 06/27/16 09:07 Toprol Xl - PO 50 mg DAILY NAHED Administration Zolpidem Tartrate 5 mg 06/26/16 21:58 06/27/16 00:05 Ambien - PO 5 mg HS PRN Administration INSOMNIA Laboratory Tests 06/24/16 05:40 JOSE Screen Negative c-ANCA Pending Proteinase 3 (PR3) Pending p-ANCA Pending Atypical p-ANCA Pending Myeloperoxidase Ab Pending Impression 1. CKD with acute component 2. a-fib 3. hx TIA 4. hx lung cancer 5. HTN 6. hyperlipidemia 7. COPD 8. CHF Plan - cont with lasix - monitor renal function - will need outpt follow up - renal workup is in progress - monitor on tele, cardiology follow up Dr Kathleen
[2016-06-28 00:11] LABS: C-ANCA <1:20 titer (Neg:<1:20); MYELOPEROXIDASE ANTIBODY <9.0 U/mL (0.0-9.0); P-ANCA <1:20 titer (Neg:<1:20); PROTEINASE-3 ANTIBODY <3.5 U/mL (0.0-3.5)
[2016-06-28] MEDS: IPRATROPIUM BR 0.02% 0.5 MG/2.5 ML VIAL.NEB. NEB SCH ×3 (06:23→18:00)
[2016-06-28 06:46] LABS: BASOPHIL 0.6 % (0-2.0); EOSINOPHIL 3.5 % (0-4.5); MCH 27.7 pg (25.7-33.7); MCHC 32.3 g/dl (32.0-36.0); MEAN CELL VOLUME 85.9 fl (80-96); MEAN PLT VOLUME 8.8 fl (7.5-11.1); NEUTROPHILS 72.6 % (42.8-82.8); PLATELET COUNT 216 K/MM3 (134-434); RDW 15.4 % (11.6-15.6)
[2016-06-28 06:52] LABS: CALCIUM 8.3 mg/dL (8.5-10.1); MAGNESIUM 2.6 mg/dL (1.8-2.4)
[2016-06-28 06:53] LABS: COCKROFT - GAULT 13.413; CREATININE 2.7 mg/dL (0.55-1.02)
[2016-06-28] MEDS: METOPROLOL SUCCINATE 50 MG TAB.SR.24H (FP) PO SCH (10:41)
[2016-06-28] MEDS: APIXABAN 2.5 MG TABLET PO SCH ×2 (10:41→21:30)
--- NOTE | 2016-06-28 11:05 | PN ---
Progress Note, Physician History of Present Illness: 85 yr old white woman with PMHx lung CA, AF, COPD, HTN, now admitted with shortness of breath; she was found to be in AF with RVR. Surgical history: s/p PPM (Anna Lozabai; [facility] 02/[address] Simone Melvin) lung resection 2004 colostomy 2016 Medical history: Lung CA AF HTN COPD ?sleep apnea hyperlipidemia s/p TIA glaucoma - Current Medication List Current Medications: Active Medications Apixaban (Eliquis -) 2.5 mg PO BID [facility] Last Admin: 06/28/16 10:41 Dose: 2.5 mg Ipratropium [place] (Atrovent 0.02% Nebulizer -) 1 amp NEB QIDR [facility] Last Admin: 06/28/16 06:23 Dose: 1 amp Metoprolol Succinate (Toprol Xl -) 50 mg PO DAILY [facility] Last Admin: 06/28/16 10:41 Dose: 50 mg Zolpidem Tartrate (Ambien -) 5 mg PO HS PRN PRN Reason: INSOMNIA Last Admin: 06/27/16 21:43 Dose: 5 mg - Objective Vital Signs: Vital Signs Temperature 98.2 F 06/28/16 02:00 Pulse Rate 95 H 06/28/16 02:00 Respiratory Rate 20 06/28/16 02:00 Blood Pressure 111/50 06/28/16 02:00 O2 Sat by Pulse Oximetry (%) 94 L 06/27/16 21:00 Eyes: Yes: WNL, Conjunctiva Clear, EOM Intact HENT: Yes: WNL, Atraumatic, Normocephalic Neck: Yes: WNL, Supple, Trachea Midline Cardiovascular: Yes: WNL, Regular Rate and Rhythm Respiratory: Yes: Diminished Gastrointestinal: Yes: WNL, Normal Bowel Sounds Genitourinary: Yes: WNL Musculoskeletal: Yes: WNL Extremities: Yes: WNL Edema: No Integumentary: Yes: WNL Neurological: Yes: WNL, Alert, Oriented ...Motor Strength: WNL Psychiatric: Yes: WNL Labs: CBC, BMP 06/28/16 06:00 06/28/16 06:00 INR, PTT INR 1.97 (0.82-1.09) H 06/22/16 13:43 Assessment/Plan imp; SVT resolved on current dose of BB s/p PPM (Anna Lozabai; [facility] 02/[address] Simone Melvin) lung resection 2004 colostomy 2017 lung CA AF HTN COPD ?sleep apnea hyperlipidemia s/p TIA glaucoma episodes of af with rvr aberrant conduction due to baseline LBBB off cardizem and dig new severely reduced systolic function. Plan cont telemetry increase metoprolol as tolerated repeat echo as outp after several weeks of BB and rate control
--- NOTE | 2016-06-28 11:44 | PN ---
Progress Note, Physician History of Present Illness: PULMONARY ALERT,NAD,-CP,-SOB - Current Medication List Current Medications: Active Medications Apixaban (Eliquis -) 2.5 mg PO BID [facility] Last Admin: 06/28/16 10:41 Dose: 2.5 mg Ipratropium [place] (Atrovent 0.02% Nebulizer -) 1 amp NEB QIDR [facility] Last Admin: 06/28/16 06:23 Dose: 1 amp Metoprolol Succinate (Toprol Xl -) 50 mg PO DAILY [facility] Last Admin: 06/28/16 10:41 Dose: 50 mg Zolpidem Tartrate (Ambien -) 5 mg PO HS PRN PRN Reason: INSOMNIA Last Admin: 06/27/16 21:43 Dose: 5 mg - Objective Vital Signs: Vital Signs Temperature 98.2 F 06/28/16 02:00 Pulse Rate 95 H 06/28/16 02:00 Respiratory Rate 20 06/28/16 09:00 Blood Pressure 111/50 06/28/16 02:00 O2 Sat by Pulse Oximetry (%) 94 L 06/27/16 21:00 Constitutional: Yes: Well Nourished, Calm Eyes: Yes: WNL HENT: Yes: WNL Neck: Yes: WNL Cardiovascular: Yes: Pulse Irregular, S1, S2 Respiratory: Yes: CTA Bilaterally Gastrointestinal: Yes: Normal Bowel Sounds, Soft Extremities: Yes: WNL Edema: No Labs: CBC, BMP 06/28/16 06:00 06/28/16 06:00 INR, PTT INR 1.97 (0.82-1.09) H 06/22/16 13:43 Assessment/Plan A/P Atrial Fibrillation with RVR controlled Acute on ?Chronic LV Systolic Heart Failure Pleural Effusions from above COPD Acute on CKD h/o Lung Ca - rate controlled - anticoagulation - monitor urine output, creatinine - O2 to keep SpO2 >90% - inhaled bronchodilators prn DR JACOBO Problem List - Problems (1) Acute on chronic systolic (congestive) heart failure Code(s): I50.23 - ACUTE ON CHRONIC SYSTOLIC (CONGESTIVE) HEART FAILURE (2) Atrial fibrillation with rapid ventricular response Code(s): I48.91 - UNSPECIFIED ATRIAL FIBRILLATION (3) COPD (chronic obstructive pulmonary disease) Code(s): J44.9 - CHRONIC OBSTRUCTIVE PULMONARY DISEASE, UNSPECIFIED (4) H/O: lung cancer Code(s): Z85.118 - PERSONAL HISTORY OF MALIGNANT NEOPLASM OF BRONCHUS AND LUNG (5) Hypertension Code(s): I10 - ESSENTIAL (PRIMARY) HYPERTENSION (6) CKD (chronic kidney disease) stage 4, GFR 15-29 ml/min Code(s): N18.4 - CHRONIC KIDNEY DISEASE, STAGE 4 (SEVERE)
--- NOTE | 2016-06-28 12:49 | PN ---
Progress Note, Physician History of Present Illness: Pt seen and examined at bedside. She is awake and alert. She denies shortness of breath today. - Current Medication List Current Medications: Active Medications Apixaban (Eliquis -) 2.5 mg PO BID [facility] Last Admin: 06/28/16 10:41 Dose: 2.5 mg Ipratropium [place] (Atrovent 0.02% Nebulizer -) 1 amp NEB QIDR [facility] Last Admin: 06/28/16 06:23 Dose: 1 amp Metoprolol Succinate (Toprol Xl -) 50 mg PO DAILY [facility] Last Admin: 06/28/16 10:41 Dose: 50 mg Zolpidem Tartrate (Ambien -) 5 mg PO HS PRN PRN Reason: INSOMNIA Last Admin: 06/27/16 21:43 Dose: 5 mg - Objective Vital Signs: Vital Signs Temperature 97.7 F 06/28/16 10:00 Pulse Rate 98 H 06/28/16 10:00 Respiratory Rate 20 06/28/16 10:00 Blood Pressure 102/55 06/28/16 10:00 O2 Sat by Pulse Oximetry (%) 94 L 06/27/16 21:00 Constitutional: Yes: Calm Eyes: Yes: Conjunctiva Clear HENT: Yes: Atraumatic Neck: Yes: Supple Cardiovascular: Yes: S1, S2 Respiratory: Yes: On Nasal O2 Gastrointestinal: Yes: Soft Genitourinary: Yes: WNL Musculoskeletal: Yes: WNL Edema: No Neurological: Yes: Oriented Psychiatric: Yes: Oriented Labs: CBC, BMP 06/28/16 06:00 06/28/16 06:00 INR, PTT INR 1.97 (0.82-1.09) H 06/22/16 13:43 Problem List - Problems (1) Acute on chronic systolic (congestive) heart failure Code(s): I50.23 - ACUTE ON CHRONIC SYSTOLIC (CONGESTIVE) HEART FAILURE (2) Atrial fibrillation Code(s): I48.91 - UNSPECIFIED ATRIAL FIBRILLATION (3) Atrial fibrillation with rapid ventricular response Code(s): I48.91 - UNSPECIFIED ATRIAL FIBRILLATION (4) Acute on chronic renal insufficiency Code(s): N28.9 - DISORDER OF KIDNEY AND URETER, UNSPECIFIED N18.9 - CHRONIC KIDNEY DISEASE, UNSPECIFIED (5) Hyperlipidemia Code(s): E78.5 - HYPERLIPIDEMIA, UNSPECIFIED Assessment/Plan Current Medications Generic Name Dose Route Start Last Admin Trade Name Freq PRN Reason Stop Dose Admin Apixaban 2.5 mg 06/23/16 10:00 06/28/16 10:41 Eliquis - PO 2.5 mg BID NAHED Administration Ipratropium [place] 1 amp 06/23/16 18:00 06/28/16 06:23 Atrovent 0.02% Nebulizer - NEB 1 amp QIDR NAHED Administration Metoprolol Succinate 50 mg 06/26/16 10:00 06/28/16 10:41 Toprol Xl - PO 50 mg DAILY NAHED Administration Zolpidem Tartrate 5 mg 06/26/16 21:58 06/27/16 21:43 Ambien - PO 5 mg HS PRN Administration INSOMNIA Laboratory Tests 06/24/16 05:40 JOSE Screen Negative c-ANCA <1:20 Proteinase 3 (PR3) <3.5 p-ANCA <1:20 Atypical p-ANCA <1:20 Myeloperoxidase Ab <9.0 Impression 1. CKD with acute component 2. a-fib 3. hx TIA 4. hx lung cancer 5. HTN 6. hyperlipidemia 7. COPD 8. CHF Plan - monitor renal function - will hold off lasix today - will likely need PO lasix on discharge - will follow - renal workup is negative so far - will also see pt in office - monitor on tele, cardiology follow up Dr Kathleen
[2016-06-28] MEDS: ZOLPIDEM TARTRATE 5 MG TABLET PO PRN (21:30)
[2016-06-28] MEDS: NYSTATIN POWDER 100,000 UNITS/GM - 15 GM TOPICAL POWDER TP SCH (23:21)
--- NOTE | 2016-06-29 01:07 | PN ---
Progress Note (short form) - Note Progress Note: breathing better / denies CP / SOB / palpitations Vital Signs Period Temp Pulse Resp BP Sys/[place] Pulse Ox Last 24 Hr 97.5 F-98.6 F 90-96 20-22 115-136/66-74 91-93 neck supple heart reg rash below both breast / erythematus and weeping lungs grossly clear good air movement abd soft non tender ext no edema CBC, BMP 06/24/16 05:40 06/27/16 05:35 CBC, BMP 06/28/16 06:00 06/28/16 06:00 Active Medications Apixaban (Eliquis -) 2.5 mg PO BID [facility] Last Admin: 06/27/16 09:07 Dose: 2.5 mg Ipratropium [place] (Atrovent 0.02% Nebulizer -) 1 amp NEB QIDR [facility] Last Admin: 06/27/16 06:23 Dose: 1 amp Metoprolol Succinate (Toprol Xl -) 50 mg PO DAILY [facility] Last Admin: 06/27/16 09:07 Dose: 50 mg Zolpidem Tartrate (Ambien -) 5 mg PO HS PRN PRN Reason: INSOMNIA Last Admin: 06/27/16 00:05 Dose: 5 mg Active Medications Apixaban (Eliquis -) 2.5 mg PO BID [facility] Last Admin: 06/28/16 21:30 Dose: 2.5 mg Metoprolol Succinate (Toprol Xl -) 50 mg PO DAILY [facility] Last Admin: 06/28/16 10:41 Dose: 50 mg Nystatin (Nystop Powder -) 1 applic TP BID [facility] Last Admin: 06/28/16 23:21 Dose: 1 applic Zolpidem Tartrate (Ambien -) 5 mg PO HS PRN PRN Reason: INSOMNIA Last Admin: 06/28/16 21:30 Dose: 5 mg telemetry sinus rhythm no significant ectopy # cardiac arrhythmia . A fib / SVT rate control currently on toprol 50 --no break through no COPD exacerbation eliquis for A/C adjusted for renal dose # CKD with accute renal failure improving baseline was 2.0 Cr .. today slightly inc will hold Lasix # CHF responding to lasix changed to PO now on hold Inc BMP also due to extended SVT # HTN # COPD atrovent for Pulm avoid B-agoinst due to tachycardia tolerating BB ?? requirement for O2 at home ? PT evaluation for activity / ADLs # Hx Lung Ca # HLD # TIA Problem List - Problems (1) Atrial fibrillation with rapid ventricular response Code(s): I48.91 - UNSPECIFIED ATRIAL FIBRILLATION (2) Generalized weakness Code(s): R53.1 - WEAKNESS (3) Renal insufficiency Code(s): N28.9 - DISORDER OF KIDNEY AND URETER, UNSPECIFIED (4) COPD (chronic obstructive pulmonary disease) Code(s): J44.9 - CHRONIC OBSTRUCTIVE PULMONARY DISEASE, UNSPECIFIED (5) H/O: lung cancer Code(s): Z85.118 - PERSONAL HISTORY OF MALIGNANT NEOPLASM OF BRONCHUS AND LUNG (6) Hypertension Code(s): I10 - ESSENTIAL (PRIMARY) HYPERTENSION (7) Acute on chronic renal insufficiency Code(s): N28.9 - DISORDER OF KIDNEY AND URETER, UNSPECIFIED N18.9 - CHRONIC KIDNEY DISEASE, UNSPECIFIED
[2016-06-29] MEDS: IPRATROPIUM BR 0.02% 0.5 MG/2.5 ML VIAL.NEB. NEB SCH ×3 (06:35→19:33)
[2016-06-29 08:22] LABS: CALCIUM 8.6 mg/dL (8.5-10.1)
[2016-06-29 08:23] LABS: COCKROFT - GAULT 14.722; CREATININE 2.4 mg/dL (0.55-1.02)
[2016-06-29] MEDS: APIXABAN 2.5 MG TABLET PO SCH (09:35)
[2016-06-29] MEDS: NYSTATIN POWDER 100,000 UNITS/GM - 15 GM TOPICAL POWDER TP SCH (09:35)
[2016-06-29] MEDS: METOPROLOL SUCCINATE 50 MG TAB.SR.24H (FP) PO SCH (09:35)
--- NOTE | 2016-06-29 13:45 | DS ---
Physical Examination Vital Signs: Vital Signs Temperature 98.5 F 06/29/16 10:00 Pulse Rate 89 06/29/16 10:00 Respiratory Rate 20 06/29/16 10:00 Blood Pressure 106/58 06/29/16 10:00 O2 Sat by Pulse Oximetry (%) 94 L 06/28/16 21:00 Constitutional: Yes: Well Nourished, No Distress, Calm Eyes: Yes: WNL, Conjunctiva Clear, EOM Intact HENT: Yes: WNL, Atraumatic, Normocephalic Neck: Yes: WNL, Supple, Trachea Midline Cardiovascular: Yes: Regular Rate and Rhythm Respiratory: Yes: CTA Bilaterally, Diminished Gastrointestinal: Yes: WNL, Normal Bowel Sounds Breast(s): Yes: WNL, Skin Changes (below both breast) Musculoskeletal: Yes: WNL Extremities: Yes: WNL Edema: No Peripheral Pulses WNL: Yes Integumentary: Yes: WNL Neurological: Yes: WNL, Alert, Oriented ...Motor Strength: WNL Psychiatric: Yes: WNL Labs: CBC, BMP 06/28/16 06:00 06/29/16 06:11 Discharge Summary Reason For Visit: SOB; CKD STAGE IV; ATRIAL FIBRILATION W/RVR Current Active Problems Acute on chronic systolic (congestive) heart failure (Acute) Atrial fibrillation (Acute) Atrial fibrillation with rapid ventricular response (Acute) Generalized weakness (Acute) Renal insufficiency (Acute) COPD (chronic obstructive pulmonary disease) (Chronic) H/O: lung cancer (Chronic) Hypertension (Chronic) Condition: Fair - Instructions Referrals: Dale Mayo MD [Primary Care Provider] - Disposition: HOME - Home Medications Comprehensive Discharge Medication List: Ambulatory Orders Apixaban [Eliquis] 12.5 mg PO BID 06/22/16 Aspirin [ASA -] 81 mg PO DAILY 06/22/16 Brinzolamide [Azopt] 1 drop OU BID 06/22/16 Travoprost [Travatan Z] 1 drop OU HS 06/22/16 Zolpidem Tartrate [Ambien] 5 mg PO HS 06/22/16 Apixaban [Eliquis -] 2.5 mg PO BID tablet 06/29/16 Ipratropium 0.02% Nebulizer [Atrovent 0.02% Nebulizer -] 1 amp NEB QIDR amp Metoprolol Succinate [Toprol XL -] 50 mg PO DAILY #30 mg 06/29/16 Nystatin Powder [Nystop Powder -] 1 applic TP BID applic 06/29/16
--- NOTE | 2016-06-29 14:36 | PN ---
Progress Note, Physician Chief Complaint: Pt A&Ox3;no complaints of dyspnea, palpitations, or chest pain. History of Present Illness: 85 yr old white woman with PMHx lung CA, AF, PSVT, s/p PPM ([employer]) for prior "pauses", COPD, HTN, now admitted with shortness of breath; she was found to be tachycardia (SVT). - Current Medication List Current Medications: Active Medications Apixaban (Eliquis -) 2.5 mg PO BID [facility] Last Admin: 06/29/16 09:35 Dose: 2.5 mg Ipratropium [place] (Atrovent 0.02% Nebulizer -) 1 amp NEB QIDR [facility] Last Admin: 06/29/16 12:00 Dose: 1 amp Metoprolol Succinate (Toprol Xl -) 50 mg PO DAILY [facility] Last Admin: 06/29/16 09:35 Dose: 50 mg Nystatin (Nystop Powder -) 1 applic TP BID [facility] Last Admin: 06/29/16 09:35 Dose: 1 applic Zolpidem Tartrate (Ambien -) 5 mg PO HS PRN PRN Reason: INSOMNIA Last Admin: 06/28/16 21:30 Dose: 5 mg - Objective Vital Signs: Vital Signs Temperature 98.5 F 06/29/16 10:00 Pulse Rate 89 06/29/16 10:00 Respiratory Rate 20 06/29/16 10:00 Blood Pressure 106/58 06/29/16 10:00 O2 Sat by Pulse Oximetry (%) 94 L 06/28/16 21:00 Constitutional: Yes: Calm Eyes: Yes: WNL HENT: Yes: WNL Neck: Yes: WNL Cardiovascular: Yes: Pulse Irregular Respiratory: Yes: Regular Gastrointestinal: Yes: Soft ...Rectal Exam: Yes: Deferred Genitourinary: No: Anuria Breast(s): Yes: WNL Musculoskeletal: Yes: Muscle Weakness Extremities: Yes: Cool Edema: No Peripheral Pulses WNL: Yes Integumentary: Yes: WNL Neurological: Yes: WNL Psychiatric: Yes: WNL Labs: CBC, BMP 06/28/16 06:00 06/29/16 06:11 INR, PTT INR 1.97 (0.82-1.09) H 06/22/16 13:43 - ....Imaging Chest X-ray: Image Reviewed (no acute pathology) Other: Image Reviewed (telemetry: NSR; occasional atrial paced beats.) Problem List - Problems (1) Atrial fibrillation Assessment/Plan: Continue metoprolol ER and apixaban. F/u with repeat ECHO for LVEF, chamber sizes as outpatient. Physical rehabilitation. Code(s): I48.91 - UNSPECIFIED ATRIAL FIBRILLATION (2) COPD (chronic obstructive pulmonary disease) Assessment/Plan: f/u with qual research manager. ?Pt was found to be in need of home O2 on last hospital visit. Code(s): J44.9 - CHRONIC OBSTRUCTIVE PULMONARY DISEASE, UNSPECIFIED (3) H/O: lung cancer Code(s): Z85.118 - PERSONAL HISTORY OF MALIGNANT NEOPLASM OF BRONCHUS AND LUNG (4) Hypertension Code(s): I10 - ESSENTIAL (PRIMARY) HYPERTENSION (5) Renal insufficiency Assessment/Plan: Avoid dehydration; f/u BUN/Cr. F/u with medical records administrator. Code(s): N28.9 - DISORDER OF KIDNEY AND URETER, UNSPECIFIED (6) Acute on chronic systolic (congestive) heart failure Code(s): I50.23 - ACUTE ON CHRONIC SYSTOLIC (CONGESTIVE) HEART FAILURE
[2016-06-29] MEDS ORDERED: ACETAMINOPHEN 325 MG TABLET (FP) ONE (15:04)
--- NOTE | 2016-06-29 16:24 | PN ---
Progress Note (short form) - Note Progress Note: Overall better. No CP or SOB. Intake & Output 06/26/16 06/27/16 06/28/16 06/29/16 23:59 23:59 23:59 23:59 Intake Total 650 470 870 500 Output Total 200 200 Balance 650 470 670 300 Weight 120 lb 9.6 oz 120 lb 8 oz 123 lb 122 lb 4 oz Last Vital Signs Temp Pulse Resp BP Pulse Ox 97.7 F 89 20 116/56 94 L 06/29/16 15:00 06/29/16 15:00 06/29/16 15:00 06/29/16 15:00 06/28/16 21:00 Active Medications Apixaban (Eliquis -) 2.5 mg PO BID [facility] Last Admin: 06/29/16 09:35 Dose: 2.5 mg Ipratropium [place] (Atrovent 0.02% Nebulizer -) 1 amp NEB QIDR [facility] Last Admin: 06/29/16 12:00 Dose: 1 amp Metoprolol Succinate (Toprol Xl -) 50 mg PO DAILY [facility] Last Admin: 06/29/16 09:35 Dose: 50 mg Nystatin (Nystop Powder -) 1 applic TP BID [facility] Last Admin: 06/29/16 09:35 Dose: 1 applic Zolpidem Tartrate (Ambien -) 5 mg PO HS PRN PRN Reason: INSOMNIA Last Admin: 06/28/16 21:30 Dose: 5 mg Constitutional: Yes: NAD Eyes: Yes: WNL HENT: Yes: WNL Neck: Yes: WNL Cardiovascular: Yes: Pulse Irregular, S1, S2 Respiratory: Yes: Clear Gastrointestinal: Yes: Normal Bowel Sounds, Soft Extremities: Yes: WNL Edema: No Labs: Laboratory Results - last 24 hr 06/29/16 06:11 Sodium 140 Potassium 3.7 Chloride 99 Carbon Dioxide 29 Anion Gap 12 BUN 57 H Creatinine 2.4 H Random Glucose 78 Calcium 8.6 Problem List - Problems (1) Acute on chronic systolic (congestive) heart failure Code(s): I50.23 - ACUTE ON CHRONIC SYSTOLIC (CONGESTIVE) HEART FAILURE (2) Atrial fibrillation with rapid ventricular response Code(s): I48.91 - UNSPECIFIED ATRIAL FIBRILLATION (3) COPD (chronic obstructive pulmonary disease) Code(s): J44.9 - CHRONIC OBSTRUCTIVE PULMONARY DISEASE, UNSPECIFIED (4) H/O: lung cancer Code(s): Z85.118 - PERSONAL HISTORY OF MALIGNANT NEOPLASM OF BRONCHUS AND LUNG (5) Hypertension Code(s): I10 - ESSENTIAL (PRIMARY) HYPERTENSION (6) CKD (chronic kidney disease) stage 4, GFR 15-29 ml/min Code(s): N18.4 - CHRONIC KIDNEY DISEASE, STAGE 4 (SEVERE) Assessment/Plan A/P Atrial Fibrillation with RVR controlled Acute on ?Chronic LV Systolic Heart Failure Pleural Effusions from above COPD Acute on CKD h/o Lung Ca - AC - O2 as needed - BD TX - D/C planning Dr Kim
--- NOTE | 2016-06-29 17:10 | PN ---
Progress Note, Physician History of Present Illness: Pt seen and examined at [facility]. She is awake and alert. She feels that her breathing is improved. - Current Medication List Current Medications: Active Medications Apixaban (Eliquis -) 2.5 mg PO BID [facility] Last Admin: 06/29/16 09:35 Dose: 2.5 mg Ipratropium Badin (Atrovent 0.02% Nebulizer -) 1 amp NEB QIDR [facility] Last Admin: 06/29/16 12:00 Dose: 1 amp Metoprolol Succinate (Toprol Xl -) 50 mg PO DAILY [facility] Last Admin: 06/29/16 09:35 Dose: 50 mg Nystatin (Nystop Powder -) 1 applic TP BID [facility] Last Admin: 06/29/16 09:35 Dose: 1 applic Zolpidem Tartrate (Ambien -) 5 mg PO HS PRN PRN Reason: INSOMNIA Last Admin: 06/28/16 21:30 Dose: 5 mg - Objective Vital Signs: Vital Signs Temperature 97.7 F 06/29/16 15:00 Pulse Rate 89 06/29/16 15:00 Respiratory Rate 20 06/29/16 15:00 Blood Pressure 116/56 06/29/16 15:00 O2 Sat by Pulse Oximetry (%) 94 L 06/28/16 21:00 Constitutional: Yes: Calm Eyes: Yes: Conjunctiva Clear HENT: Yes: Atraumatic Neck: Yes: Supple Cardiovascular: Yes: S1, S2 Respiratory: Yes: On Nasal O2 Gastrointestinal: Yes: Normal Bowel Sounds, Soft Genitourinary: Yes: WNL Musculoskeletal: Yes: WNL Edema: No Neurological: Yes: Oriented Psychiatric: Yes: Oriented Labs: CBC, BMP 06/28/16 06:00 06/29/16 06:11 INR, PTT INR 1.97 (0.82-1.09) H 06/22/16 13:43 Problem List - Problems (1) Acute on chronic systolic (congestive) heart failure Code(s): I50.23 - ACUTE ON CHRONIC SYSTOLIC (CONGESTIVE) HEART FAILURE (2) Atrial fibrillation Code(s): I48.91 - UNSPECIFIED ATRIAL FIBRILLATION (3) Atrial fibrillation with rapid ventricular response Code(s): I48.91 - UNSPECIFIED ATRIAL FIBRILLATION (4) Acute on chronic renal insufficiency Code(s): N28.9 - DISORDER OF KIDNEY AND URETER, UNSPECIFIED N18.9 - CHRONIC KIDNEY DISEASE, UNSPECIFIED (5) Hyperlipidemia Code(s): E78.5 - HYPERLIPIDEMIA, UNSPECIFIED Assessment/Plan Current Medications Generic Name Dose Route Start Last Admin Trade Name Freq PRN Reason Stop Dose Admin Apixaban 2.5 mg 06/23/16 10:00 06/29/16 09:35 Eliquis - PO 2.5 mg BID NAHED Administration Ipratropium Badin 1 amp 06/29/16 06:00 06/29/16 12:00 Atrovent 0.02% Nebulizer - NEB 1 amp QIDR NAHED Administration Metoprolol Succinate 50 mg 06/26/16 10:00 06/29/16 09:35 Toprol Xl - PO 50 mg DAILY NAHED Administration Nystatin 1 applic 06/28/16 22:45 06/29/16 09:35 Nystop Powder - TP 1 applic BID NAHED Administration Zolpidem Tartrate 5 mg 06/26/16 21:58 06/28/16 21:30 Ambien - PO 5 mg HS PRN Administration INSOMNIA Impression 1. CKD with acute component 2. a-fib 3. hx TIA 4. hx lung cancer 5. HTN 6. hyperlipidemia 7. COPD 8. CHF Plan - renal function is stabilizng - will need lasix for now - can see pt in office for follow up - will need to monitor renal function - renal workup is negative so far - will also see pt in office - monitor on tele, cardiology follow up Dr Kathleen
[2016-06-29] MEDS ORDERED: FUROSEMIDE 40 MG TABLET (FP) PO SCH (17:15)
[2016-06-29 18:39] VITALS: BP 103/59; PULSE 87; TEMP 98.3
== END 2016-06-29 19:41 | disposition home or self-care (01) | DRG 291 ==
LOC: JER 13:13 → JERBED 17:33 → J4W 20:21
PROVIDERS: ADMIT Family Medicine; ATTEND Family Medicine
DX: I13.0 Hypertensive heart and chronic kidney disease with heart failure and stage 1 through stage 4 chronic kidney disease, or unspecified chronic kidney disease (principal); I50.23 Acute on chronic systolic (congestive) heart failure; I47.1 Supraventricular tachycardia; N18.4 Chronic kidney disease, stage 4 (severe); E78.5 Hyperlipidemia, unspecified; J44.9 Chronic obstructive pulmonary disease, unspecified; H40.9 Unspecified glaucoma; I48.0 Paroxysmal atrial fibrillation; Z87.891 Personal history of nicotine dependence
CPT/HCPCS: 36415; 71010-TC; 76775-TC; 76856-TC; 80048; 80053; 80061; 81003; 81015; 82436; 82550; 82553; 82570; 83520; 83721; 83735; 83880; 84133; 84300; 84443; 84484; 85025; 85610; 86038; 86256; 87040; 87086; 93005; 93010; 93306-TC; 94640; 94761; 97116-GP; 97162-PG; 99284-25; J1644